=== PATIENT | male | born 1955 | race Caucasian/White ===

== ENCOUNTER 2022-09-25 06:12 | Emergency (ER) | payer MEDICARE, SELFPAY ==
[2022-09-25 06:17] VITALS: BP 141/94; PULSE 99; RESP 20; TEMP 36.4; O2SAT 91; BMI 36.0
--- NOTE | 2022-09-25 06:28 | ED.SOB ---
HPI - SOB/Dyspnea General Time Seen by Provider: 06:28 <Noe Dao MD - Last Filed: 09/25/22 07:04> Date Seen: 09/25/22 <Noe Dao MD - Last Filed: 09/25/22 07:04> Chief Complaint: Shortness of Breath/Dyspnea <Noe Dao MD - Last Filed: 09/25/22 07:04> Stated Complaint: difficulty breathing <Noe Dao MD - Last Filed: 09/25/22 07:04> Time Seen by Provider: 09/25/22 06:32 <Noe Dao MD - Last Filed: 09/25/22 07:04> Source: patient, family, RN notes reviewed and old records reviewed <Noe Dao MD - Last Filed: 09/25/22 07:04> Mode of arrival: ambulatory <Noe Dao MD - Last Filed: 09/25/22 07:04> Limitations: no limitations <Noe Dao MD - Last Filed: 09/25/22 07:04> History of Present Illness HPI Narrative: 67-year-old male with history of COPD and obesity as well as diabetes and hypertension presents today with shortness of breath. Patient notes progressive shortness of breath for about the last 3 weeks but worse the last week. He has COPD and is chronically on oxygen, 2 L at rest, 3 L at night with his BiPAP, and 4 L with activity but notes decreased exercise and activity tolerance recently. Some increased cough with occasional production of phlegm. Has some chills but no fever. No lower extremity swelling. No abdominal pain, nausea, vomiting. Does notice some pain in the lower ribs with breathing occasionally. <Noe Dao MD - Last Filed: 09/25/22 07:04> Related Data Home Medications: Home Medications Medication Instructions Recorded Confirmed amlodipine 10 mg tablet 10 mg PO DAILY 07/12/22 09/25/22 lisinopril 20 mg tablet 20 mg PO DAILY 07/12/22 09/25/22 potassium chloride 10 mEq 10 meq PO DAILY 07/12/22 09/25/22 tablet,extended release pravastatin 40 mg tablet 40 mg PO DAILY 07/12/22 09/25/22 aspirin 81 mg tablet,delayed 81 mg PO DAILY 09/25/22 09/25/22 release (Adult Aspirin Regimen) furosemide 40 mg tablet 40 mg PO DAILY 09/25/22 09/25/22 indomethacin 50 mg capsule 50 mg PO 3XD PRN gout pain 09/25/22 09/25/22 Previous Rx's Medication Instructions Recorded amoxicillin 500 mg-potassium 1 tab PO TID 7 days #21 tabs 09/25/22 clavulanate 125 mg tablet (Augmentin) azithromycin 250 mg tablet 250 mg PO DAILY 4 days #4 tabs 09/25/22 azithromycin 250 mg tablet 250 mg PO DAILY 6 days #6 tabs 09/25/22 prednisone 20 mg tablet 40 mg (2 x 20 mg) PO DAILY 4 days 09/25/22 #8 tabs <Noe Dao MD - Last Filed: 09/25/22 07:04> Allergies/Adverse Reactions: Allergies Allergy/AdvReac Type Severity Reaction Status Date / Time No Known Drug Allergies Allergy Verified 09/25/22 07:53 <Noe Dao MD - Last Filed: 09/25/22 07:04> [facility] Social History: Social History Smoking Status: Former smoker Do you use any of these nicotine containing products: None Second hand tobacco smoke exposure: No How often do you have a drink containing alcohol: 2-3 times a week How many standard drinks containing alcohol do you have on a typical day: 3 or 4 How often do you have six or more drinks on one occasion: Less than monthly AUDIT-C Alcohol total score: 5 Non-prescribed substance use: denies use service: No <Noe Dao MD - Last Filed: 09/25/22 07:04> Exam Narrative: Exam Narrative: General: Well-developed and well-nourished, no acute distress Head: Atraumatic and normocephalic Eyes: Pupils are equal reactive, extraocular motions intact, conjunctiva clear ENT: External nose and ears are normal, posterior pharynx without erythema or exudate Neck: No midline cervical tenderness, full spontaneous range of motion the neck, trachea midline, no adenopathy Heart: Regular rate and rhythm no murmurs or thrills Lungs: Diminished breath sounds throughout with bilateral crackles Abdomen: Soft, nontender, nondistended with active bowel sounds Musculoskeletal: No tenderness, deformity, or edema Neurologic: Awake, alert, and oriented x3, no gross focal neurologic deficits, cranial nerves intact as tested Psych: Mood and affect are appropriate Skin: No rashes <Noe Dao MD - Last Filed: 09/25/22 07:04> Const: Vital Signs, click to edit/add: Vital Signs - 24 hr 09/25/22 06:17 09/25/22 07:20 09/25/22 09:39 Temperature 97.5 F L 97.6 F Pulse Rate [Pulse Oximeter] 99 88 86 Respiratory Rate 20 20 22 Blood Pressure [Ri ght Upper Arm] 141/94 H 138/74 157/94 H Pulse Oximetry 91 93 92 Oxygen Delivery Me thod Nasal Cannula Room Air Nasal Cannula Oxygen Flow Rate 4 3 <Noe Dao MD - Last Filed: 09/25/22 07:04> Vital Signs, click to edit/add: Vital Signs - 24 hr 09/25/22 06:17 09/25/22 07:20 09/25/22 09:39 Temperature 97.5 F L 97.6 F Pulse Rate [Pulse Oximeter] 99 88 86 Respiratory Rate 20 20 22 Blood Pressure [Ri ght Upper Arm] 141/94 H 138/74 157/94 H Pulse Oximetry 91 93 92 Oxygen Delivery Me thod Nasal Cannula Room Air Nasal Cannula Oxygen Flow Rate 4 3 <Ronaldo Abraham MD - Last Filed: 09/25/22 15:59> Course Course Hospital Course: Patient seen examined, prior records are reviewed. Patient with history of CHF and COPD, oxygen dependent, who presents with increased shortness of breath. No orthopnea or lower extremity swelling but does have some crackles on lung exam. Suspect COPD exacerbation but cannot exclude overlying infection or heart failure. Labs ordered along with DuoNeb and Decadron. CT PE study will be performed given chest pain with breathing although this seems more musculoskeletal. Sign out to oncoming provider change of shift. <Noe Dao MD - Last Filed: 09/25/22 07:04> Reevaluation(s) Time of Reevaluation #1: 08:35 <Ronaldo Abraham MD - Last Filed: 09/25/22 15:59> Reevaluation #1: Patient was updated on his imaging results, CT scan showed: Impression: Severe cystic bronchiectasis seen throughout the bilateral hemithoraces with extensive emphysematous bullous changes. Dense airspace opacification of the right upper lobe consistent with developing pneumonia with parapneumonic effusion and reactive hilar and mediastinal lymph nodes. No evidence of pulmonary embolus. Patient to receive IV antibiotics ceftriaxone and azithromycin. <Ronaldo Abraham MD - Last Filed: 09/25/22 15:59> Time of Reevaluation #2: 09:50 <Ronaldo Abraham MD - Last Filed: 09/25/22 15:59> Reevaluation #2: Patient is feeling better after above care given, O2 stats have been stable, CBC showed leukocytosis, with a left shift, troponin was negative at 0.00, NT proBNP mildly elevated at 1150, COVID/fluA/B were negative, EKG showed no acute changes, metabolic panel within normal limits, discussed inpatient versus outpatient management, patient wishes to be discharged based on no changes with his vital sign and improvement of his symptoms. Plan to cover him with a beta-lactam and macrolide based on his comorbidities, Augmentin and azithromycin, short course of prednisone, follow-up appointment has been made early this week with his primary care provider, reasons to return given. <Ronaldo Abraham MD - Last Filed: 09/25/22 15:59> Vital Signs Vital signs: Initial Vital Signs Temperature 97.5 F L 09/25/22 06:17 Temperature Source Temporal Artery Scan 09/25/22 06:17 Pulse Rate 99 09/25/22 06:17 Respiratory Rate 20 09/25/22 06:17 Blood Pressure 141/94 H 09/25/22 06:17 Blood Pressure Mean 109 H 09/25/22 06:17 Blood Pressure Position Sitting 09/25/22 06:17 Pulse Oximetry 91 09/25/22 06:17 Oxygen Delivery Method Nasal Cannula 09/25/22 06:17 Oxygen Flow Rate 4 09/25/22 06:17 Vital Signs Temperature 97.5 F L 09/25/22 06:17 Pulse Rate 99 09/25/22 06:17 Respiratory Rate 20 09/25/22 06:17 Blood Pressure 141/94 H 09/25/22 06:17 Pulse Oximetry 91 09/25/22 06:17 Oxygen Delivery Method Nasal Cannula 09/25/22 06:17 Oxygen Flow Rate 4 09/25/22 06:17 Temperature 97.6 F 09/25/22 07:20 Pulse Rate 86 09/25/22 09:39 Respiratory Rate 22 09/25/22 09:39 Blood Pressure 157/94 H 09/25/22 09:39 Pulse Oximetry 92 09/25/22 09:39 Oxygen Delivery Method Nasal Cannula 09/25/22 09:39 Oxygen Flow Rate 3 09/25/22 09:39 <Noe Dao MD - Last Filed: 09/25/22 07:04> Initial Vital Signs Temperature 97.5 F L 09/25/22 06:17 Temperature Source Temporal Artery Scan 09/25/22 06:17 Pulse Rate 99 09/25/22 06:17 Respiratory Rate 20 09/25/22 06:17 Blood Pressure 141/94 H 09/25/22 06:17 Blood Pressure Mean 109 H 09/25/22 06:17 Blood Pressure Position Sitting 09/25/22 06:17 Pulse Oximetry 91 09/25/22 06:17 Oxygen Delivery Method Nasal Cannula 09/25/22 06:17 Oxygen Flow Rate 4 09/25/22 06:17 Vital Signs Temperature 97.5 F L 09/25/22 06:17 Pulse Rate 99 09/25/22 06:17 Respiratory Rate 20 09/25/22 06:17 Blood Pressure 141/94 H 09/25/22 06:17 Pulse Oximetry 91 09/25/22 06:17 Oxygen Delivery Method Nasal Cannula 09/25/22 06:17 Oxygen Flow Rate 4 09/25/22 06:17 Temperature 97.6 F 09/25/22 07:20 Pulse Rate 86 09/25/22 09:39 Respiratory Rate 22 09/25/22 09:39 Blood Pressure 157/94 H 09/25/22 09:39 Pulse Oximetry 92 09/25/22 09:39 Oxygen Delivery Method Nasal Cannula 09/25/22 09:39 Oxygen Flow Rate 3 09/25/22 09:39 <Ronaldo Abraham MD - Last Filed: 09/25/22 15:59> MDM - SOB/Dyspnea Lab Data Attestation: I reviewed the patient's lab results. <Noe Dao MD - Last Filed: 09/25/22 07:04> Labs: Lab Results 06/09/25/22 09/25/22 Range/Units 06:39 06:54 06:59 WBC 12.89 H (4.50-11.00) K/uL RBC 3.85 L (4.30-5.90) m/uL Hgb 13.6 (13.5-17.5) gm/dL Hct 40.7 (37.0-53.0) % MCV 106 H (80-100) fL MCH 35 H (26-34) pg MCHC 33 (32-36) gm/dL RDW Coeff of [place]loan 13.1 (11.5-15.5) % Plt Count 275 (140-440) K/uL Neut % (Auto) 78.4 H (42.0-72.0) % Lymph % (Auto) 8.2 L (20-44) % [place] % (Auto) 11.6 H (0.0-11.0) % Eos % (Auto) 1.2 (0.0-7.0) % Baso % (Auto) 0.1 (0.0-3.0) % Neut # (Auto) 10.10 H (1.7-7.0) K/uL Lymph # (Auto) 1.10 (0.90-2.90) K/uL [place] # (Auto) 1.50 H (0.00-0.90) K/UL Eos # (Auto) 0.20 (0.00-0.50) K/uL Baso # (Auto) 0.00 (0.00-0.30) K/uL Diff Slide Review Acceptable Review (Acceptable) Sodium 139 (135-149) mmol/L Potassium 4.3 (3.6-5.1) mmol/L Chloride 102 (96-114) mmol/L Carbon Dioxide 26 (20-32) mmol/L BUN 14 (7-30) mg/dL Creatinine 0.7 (0.5-1.5) mg/dL Estimated Creat Clear 66.10 Estimated GFR 100 ml/min Glucose 113 (60-115) mg/dL Calcium 9.5 (8.4-10.6) mg/dL Magnesium 1.9 (1.5-2.6) mg/dL NT-Pro-B Natriuret Pep 1150 pg/mL SARS-CoV-2 (PCR) Negative SARS-CoV-2 (Negative) Influenza Type A (PCR) Negative PCR FLU A (Negative) Influenza Type B (PCR) Negative PCR FLU B (Negative) POC Troponin I 0.00 L (0.01-0.04) ng/ml <Noe Dao MD - Last Filed: 09/25/22 07:04> Lab Results 09/25/22 09/25/22 09/25/22 Range/Units 06:39 06:54 06:59 WBC 12.89 H (4.50-11.00) K/uL RBC 3.85 L (4.30-5.90) m/uL Hgb 13.6 (13.5-17.5) gm/dL Hct 40.7 (37.0-53.0) % MCV 106 H (80-100) fL MCH 35 H (26-34) pg MCHC 33 (32-36) gm/dL RDW Coeff of [place] 13.1 (11.5-15.5) % Plt Count 275 (140-440) K/uL Neut % (Auto) 78.4 H (42.0-72.0) % Lymph % (Auto) 8.2 L (20-44) % [place] % (Auto) 11.6 H (0.0-11.0) % Eos % (Auto) 1.2 (0.0-7.0) % Baso % (Auto) 0.1 (0.0-3.0) % Neut # (Auto) 10.10 H (1.7-7.0) K/uL Lymph # (Auto) 1.10 (0.90-2.90) K/uL [place] # (Auto) 1.50 H (0.00-0.90) K/UL Eos # (Auto) 0.20 (0.00-0.50) K/uL Baso # (Auto) 0.00 (0.00-0.30) K/uL Diff Slide Review Acceptable Review (Acceptable) Sodium 139 (135-149) mmol/L Potassium 4.3 (3.6-5.1) mmol/L Chloride 102 (96-114) mmol/L Carbon Dioxide 26 (20-32) mmol/L BUN 14 (7-30) mg/dL Creatinine 0.7 (0.5-1.5) mg/dL Estimated Creat Clear 66.10 Estimated GFR 100 ml/min Glucose 113 (60-115) mg/dL Calcium 9.5 (8.4-10.6) mg/dL Magnesium 1.9 (1.5-2.6) mg/dL NT-Pro-B Natriuret Pep 1150 pg/mL SARS-CoV-2 (PCR) Negative SARS-CoV-2 (Negative) Influenza Type A (PCR) Negative PCR FLU A (Negative) Influenza Type B (PCR) Negative PCR FLU B (Negative) POC Troponin I 0.00 L (0.01-0.04) ng/ml <Ronaldo Abraham MD - Last Filed: 09/25/22 15:59> ECG Data Attestation: I personally reviewed and interpreted this ECG as follows: <Noe Dao MD - Last Filed: 09/25/22 07:04> ECG interpretation date: 09/25/22 <Noe Dao MD - Last Filed: 09/25/22 07:04> ECG interpretation time: 06:52 <Noe Dao MD - Last Filed: 09/25/22 07:04> Prior ECG tracings: not available for review <Noe Dao MD - Last Filed: 09/25/22 07:04> Interpretation: Performed at 6:21 a.m. demonstrates sinus rhythm rate 99, no acute ST elevations or depressions, normal intervals, normal axis, QTC 441, no prior for comparison <Noe Dao MD - Last Filed: 09/25/22 07:04> Discharge Plan Discharge Clinical Impression: Pneumonia <Noe Dao MD - Last Filed: 09/25/22 07:04> Patient Disposition: Home, Self-Care <Noe Dao MD - Last Filed: 09/25/22 07:04> Condition: Improved <Noe Dao MD - Last Filed: 09/25/22 07:04> Instructions: Pneumonia (ED) <Noe Dao MD - Last Filed: 09/25/22 07:04> Additional Instructions: To take Augmentin 875 mg twice daily over the next 7 days in addition to azithromycin for 5 days, prednisone 40 mg daily over the next 4 days, follow-up as scheduled, return if worsening symptoms. Follow up appointment is scheduled at the [facility] on 09/26 with a 1:40pm appointment time. Please arrive 10 minutes early to get checked in. If you have any questions or need to reschedule, please call [phone]. [facility] [address] [place] [address] <Noe Dao MD - Last Filed: 09/25/22 07:04> Activity Level: No Restrictions <Noe Dao MD - Last Filed: 09/25/22 07:04> No Restrictions <Ronaldo Abraham MD - Last Filed: 09/25/22 15:59> Prescriptions: New amoxicillin-pot clavulanate [Augmentin] 500-125 mg tablet 1 tab PO TID 7 Days Qty: 21 0RF prednisone 20 mg tablet 40 mg PO DAILY 4 Days Qty: 8 0RF azithromycin 250 mg tablet 250 mg PO DAILY 6 Days Qty: 6 0RF Rx Instructions: start on day 2 of therapy azithromycin 250 mg tablet 250 mg PO DAILY 4 Days Qty: 4 0RF Rx Instructions: start on day 2 of therapy No Action amlodipine 10 mg tablet 10 mg PO DAILY potassium chloride 10 mEq tablet extended release 10 meq PO DAILY lisinopril 20 mg tablet 20 mg PO DAILY pravastatin 40 mg tablet 40 mg PO DAILY furosemide 40 mg tablet 40 mg PO DAILY indomethacin 50 mg capsule 50 mg PO 3XD PRN (Reason: gout pain) aspirin [Adult Aspirin Regimen] 81 mg tablet,delayed release (DR/EC) 81 mg PO DAILY <Noe Dao MD - Last Filed: 09/25/22 07:04> Stand Alone Forms: [employer] Info Instructions <Noe Dao MD - Last Filed: 09/25/22 07:04>
--- NOTE | 2022-09-25 06:50 | CRLHL7_ITS ---
For Patients: As a result of the Cures Act, medical imaging exams and procedure reports are released immediately into your electronic medical record. You may view this report before your referring provider. If you have questions, please contact your health care provider. Indication: Cough, dyspnea and chest pain Technique: Volumetric multidetector CT images of the chest were obtained after the administration of IV contrast. 95 cc Isovue 370 low osmolar intravenous contrast Comparison: Two-view chest February 19, 2021 Findings: The thoracic inlet and thyroid gland are unremarkable. The thoracic aorta is nonaneurysmal. There is no central filling defect to suggest pulmonary embolism. There are enlarged mediastinal and hilar lymph nodes. There is severe central bronchial thickening with extensive cystic bronchiectasis of the predominantly lower lobes, lingula and middle lobes. There is severe paraseptal and centrilobular emphysematous changes with large bulla along the peripheral upper and lower lobes. There is a right basilar pleural effusion with dense airspace opacification of the right upper lobe consistent with developing multifocal infiltrates. There is no evidence of pulmonary mass or suspicious pulmonary nodule. The partially visualized upper abdominal viscera are within normal limits. The thoracic vertebral body heights are grossly maintained with straightening of the normal thoracic kyphosis. There is no significant spondylolisthesis or displaced fracture. Impression: Severe cystic bronchiectasis seen throughout the bilateral hemithoraces with extensive emphysematous bullous changes. Dense airspace opacification of the right upper lobe consistent with developing pneumonia with parapneumonic effusion and reactive hilar and mediastinal lymph nodes. No evidence of pulmonary embolus. Please note that all CT scans at this facility use dose modulation, iterative reconstruction, and/or weight-based dosing when appropriate to reduce radiation dose to as low as reasonably achievable. Dictated by Eze Trujillo MD @ 09/25/2022 8:25:47 AM (Electronically Signed)
[2022-09-25 07:03] LABS: Basophils Percent Auto 0.1 % (0.0-3.0); Eosinophils Percent Auto 1.2 % (0.0-7.0); Hematocrit 40.7 % (37.0-53.0); Hemoglobin* 13.6 gm/dL (13.5-17.5); Immature Granulocytes Pct Auto 0.5 %; Lymphocytes Percent Auto 8.2 % (20-44); Mean Corpuscular HGB Conc 33 gm/dL (32-36); Mean Corpuscular Hemoglobin 35 pg (26-34); Mean Corpuscular Volume 106 fL (80-100); Monocytes Percent Auto 11.6 % (0.0-11.0); Neutrophils Percent Auto 78.4 % (42.0-72.0); Platelet Count* 275 K/uL (140-440); RDW Coefficient of Variation % 13.1 % (11.5-15.5); Red Blood Count 3.85 m/uL (4.30-5.90); White Blood Count* 12.89 K/uL (4.50-11.00)
[2022-09-25] MEDS: dexAMETHasone 10 MG/ML inj IVP (07:14)
[2022-09-25 07:19] LABS: Chloride* 102 mmol/L (96-114); Potassium* 4.3 mmol/L (3.6-5.1); Sodium* 139 mmol/L (135-149)
[2022-09-25 07:20] VITALS: BP 138/74; PULSE 88; RESP 20; TEMP 36.4; O2SAT 93
[2022-09-25 07:22] LABS: Blood Urea Nitrogen* 14 mg/dL (7-30); Calcium* 9.5 mg/dL (8.4-10.6); Carbon Dioxide* 26 mmol/L (20-32); Creatinine* 0.7 mg/dL (0.5-1.5); Estimated Glomerular Filt Rate 100 ml/min; Glucose* 113 mg/dL (60-115)
[2022-09-25 07:23] LABS: Magnesium* 1.9 mg/dL (1.5-2.6)
[2022-09-25 07:32] LABS: NT Pro B Type NatriureticPept* 1150 pg/mL; Slide Review Reflex Yes
[2022-09-25 07:33] LABS: Slide Review Acceptable Review (Acceptable)
[2022-09-25 07:49] LABS: PCR FLU A Negative PCR FLU A (Negative); PCR FLU B Negative PCR FLU B (Negative); SARS PCR* Negative SARS-CoV-2 (Negative)
--- NOTE | 2022-09-25 08:01 | ED.NURSE ---
wants to take his own meds, this was ok per dr griffith.
[2022-09-25] MEDS: cefTRIAXone 1 GM in 0.9 % SODIUM CHLORIDE Mini-bag 100 ML IVPB (08:51)
[2022-09-25] MEDS: AZITHROMYCIN 500 MG in 0.9 % SODIUM CHLORIDE 250 ml 250 ML 255 MG IVPB (09:37)
[2022-09-25 09:39] VITALS: BP 157/94; PULSE 86; RESP 22; O2SAT 92
== END 2022-09-25 11:18 | disposition home or self-care (01) ==
PROVIDERS: Family Medicine; Emergency Provider Student in an Organized Health Care Education/Training Program; PCP Family Medicine
DX: J18.9 Pneumonia, unspecified organism (principal)
CPT/HCPCS: 36415; 71260; 80048; 83735; 83880; 84484; 85025; 87631; 93005; 96365; 96375; 99284; 99285; J0456; J0696; J1100; J7050; Q9967

== ENCOUNTER 2024-09-02 10:38 | Outpatient (CLI) | payer MEDICARE, SELFPAY | END 2024-09-02 10:39 | disposition home or self-care (01) | LOC: AMB 09-03 14:30 | PROVIDERS: PCP Family Medicine; Visit Provider Family Medicine | DX: R53.1 Weakness (principal) | CPT/HCPCS: A0425; A0427 ==

== ENCOUNTER 2024-09-17 08:46 | Emergency (ER) | payer MEDICARE, SELFPAY ==
--- OUTSIDE RECORDS SUMMARY | 2024-09-17 08:49 | XMS_ITS | Referral Summary ---
Author Organization [facility] Address [address] [place] [address] [place] [address] Care Team Providers Care Financial Sales Manager Name Role Phone Casimiro Mason MD Primary Care Provider Encounters Date Type Department Care Team Description 08/18/2024 Results Follow-Up [facility] [place] [address] [place] [address] Azul Fernandes MONITOR COMPLETE 7 TO 15 DAYS 07/08/2024 1:00 PM CDT Office Visit [facility] - [address] [place] [id number] Yvette Rios, CATALYST IMPREGNATOR, BACK TUFTER Cerebrovascular accident (CVA), unspecified mechanism (HCC) (Primary Dx); B12 deficiency; Stenosis of right carotid artery; Vitamin D deficiency from Last 3 Months Allergies No known active allergies Medications amLODIPine (NORVASC) 10 mg oral tablet Take 1 tablet (10 mg) by mouth Daily. 07/09/2023 Active clopidogrel (PLAVIX) 75 mg oral tablet 4 tablets orally on day 1, then 1 tablet daily. 07/06/2024 Active cyanocobalamin 1,000 mcg oral tablet Take 1 tablet (1,000 mcg) by mouth Daily. 10/23/2023 Active furosemide (LASIX) 40 mg oral tablet Take 1.5 tablets (60 mg) by mouth Daily. 11/01/2023 Active indomethacin (INDOCIN) 50 mg oral capsule Take 1 capsule (50 mg) by mouth. 02/06/2024 Active lisinopriL (PRINIVIL) 20 mg oral tablet Take 0.5 tablets (10 mg) by mouth Daily. 07/06/2024 Active potassium chloride (K-DUR) 20 mEq oral extended release tablet Take 0.5 tablets (10 mEq) by mouth Daily. 11/27/2023 Active pravastatin (PRAVACHOL) 40 mg oral tablet Take 1 tablet (40 mg) by mouth Daily. 07/09/2023 Active aspirin 81 mg oral enteric coated tablet Take 1 tablet (81 mg) by mouth once daily. Active cholecalciferol , vitamin D3, 1,250 mcg (50,000 unit) oral TabIndications: Vitamin D deficiency Take 50,000 Units by mouth every 7 (seven) days. 9 tablet 07/13/2024 Active Active Problems Problem Noted Date Diagnosed Date Subclinical hypothyroidism 11/01/2023 B12 deficiency 10/23/2023 Oxygen dependent 07/09/2023 Chronic respiratory failure with hypoxia 023 Cor pulmonale 02/25/2012 COPD (chronic obstructive pulmonary disease) 05/2009 HTN (hypertension) 05/03/2009 Hyperlipidemia 05/03/2009 Immunizations Immunization Administration Dates Next Due Influenza Adjuvanted (Fluad Quadrivalent PF) 01/19/2023,03/15/2021 Influenza Adjuvanted (Fluad Trivalent PF) 01/03/2024 Influenza High Dose (Fluzone Quadrivalent PF) 12/18/2021,11/26/2019 Influenza split virus (Fluzo ne Quadrivalent PF) 01/16/2019,01/01/2018,01/02/2017,2015,01/21/2015,01/18/2014 Influenza split virus (Fluzo ne Trivalent PF) 02/26/2011 Influenza split virus trivalent 02/20/2012,01/13 Moderna 12+Yrs mRNA Spikevax COVID Vaccine Seasonal 07/09/2023 Pfizer 12+ Yrs Monovalent CO VID Vaccine (purple cap) 03/15/2021 Pneumococcal PCV13 11/26/2019 Pneumococcal PCV20 07/09/2023 Pneumococcal PPSV23 02/20/2012,08/10/2007 SPIKEVAX (Moderna) 12+ Yrs M onovalent COVID Vaccine (credit representative) 07/06/2020,06/08/2020 Td 08/09/2004 Tdap 01/18/2014,05/02/2002 Zoster Live 01/02/2017 Social History Tobacco Use Types Packs/Day Years Used Date Smoking Tobacco: Former Cigarettes Smokeless Tobacco: Never Tobacco Cessation:Counseling Given: Not Answered Alcohol Use Standard Drinks/Week Comments Not Currently 0 (1 standard drink = 0.6 oz pur e alcohol) Sex and Gender Information Value Date Recorded Sex Assigned at Not on file Legal Sex Male 9:21 AM CDT Gender Identity Not on file Sexual Orientation Not on file Last Filed Vital Signs Vital Sign Reading Time Taken Comments Blood Pressure 110/60 07/08/2024 1:25 PM CDT Pulse - - Temperature - - Respiratory Rate - - Oxygen Saturation - - Inhaled Oxygen Concentration - - Weight 107 kg (236 lb) 07/08/2024 1:25 PM CDT Height 172.7 cm (5' 8) 07/08/2024 1:25 PM CDT Body Mass Index 35.88 07/08/2024 1:25 PM CDT Plan of Treatment Not on file Procedures Procedure Name Priority Date/Time Associated Diagnosis Comments ZIO MONITOR COMPLETE 7 TO 15 DAYS Routine 08/17/2024 11:42 AM CDT Cerebrovascular accident (CVA), unspecified mechanism (HCC) HOMOCYST(E)INE ([facility]) Routine 07/08/2024 12:49 PM CDT B12 deficiency Stenosis of right carotid artery Cerebrovascular accident (CVA), unspecified mechanism (HCC) METHYLMALONIC ACID, SERUM ([facility]) Routine 07/08/2024 12:49 PM CDT B12 deficiency Stenosis of right carotid artery Cerebrovascular accident (CVA), unspecified mechanism (HCC) VITAMIN D, 25-HYDROXY ([facility]) Routine 07/08/2024 12:49 PM CDT Stenosis of right carotid artery Cerebrovascular accident (CVA), unspecified mechanism (HCC) HEMOGLOBIN A1C ([facility]) Routine 07/08/2024 12:49 PM CDT Stenosis of right carotid artery Cerebrovascular accident (CVA), unspecified mechanism (HCC) from Last 3 Months Results * ZIO MONITOR COMPLETE 7 TO 15 DAYS (08/17/2024 11:42 AM CDT) EKG [facility] Comment: NM Test Date: 2024-08-17 Pat Name: MITCHEL BERNABE Department: [facility] Room: Gender: M Client Associate: : [id number] Requested By: YVETTE RIOS MD Order Number: [id number] Reading MD: Danial Wu MD Interpretive Statements ZIO DOS: 07/27/24 TO 08/10/24 DURATION: 13 DAYS 22 HOURS PCP: CASIMIRO MASON MD ORDERING: YVETTE RIOS NP PRIMARY TITLE I PARAPROFESSIONAL: NONE INDICATION: CVA RESULTS: Patient had a min HR of 49 bpm, max HR of 169 bpm, and avg HR of 71 bpm. Predominant underlying rhythm was Sinus Rhythm. 3 Supraventricular Tachycardia runs occurred, the run with the fastest interval lasting 6 beats with a max rate of 169 bpm, the longest lasting 10 beats with an avg rate of 111 bpm. Isolated SVEs (Supra-Ventricular Ectopics) were rare (<1.0%), SVE Couplets were rare (<1.0%), and SVE Triplets were rare (<1.0%). Isolated VEs (Ventricular Ectopics) were rare (<1.0%), and no VE Couplets or VE Triplets were present. There were no reported patient events. CONCLUSIONS: 1. Basic rhythm is normal sinus rhythm. 2. No significant cardiac arrhythmias were seen. [facility] Electronically Signed On 08-18-2024 16:35:47 CDT by Danial Wu MD 08/17/2024 11:4 2 AM CDT us Yvette Rios APRN, CNP CARDIO ORDERABLE Final Result [facility] [address] [place] [address] * METHYLMALONIC ACID, SERUM ([facility]) (07/08/2024 12:49 PM CDT) Methylmalonic Acid ([facility]) 300 0 - 378 nmol/L [facility] 2 Blood 07/08/2024 12:4 9 PM CDT 07/07/2024 11:00 PM CDT Narrative [facility] 2 - 07/13/2024 8:08 AM CDT Test(s) 824714-[id number] Acid, Serum was developed and its performance characteristics determined by [facility]. It has not been cleared or approved by the Food and Drug Administration. Performed at: - [address] [id number] [employer] Builder: Robyn Groves MD, Phone: [phone] Yvette Rios APRN, BACK TUFTER [facility] ORDERABLES Rahel davis Result Performing Organization Address [facility] Co de Phone Number [facility] 2 * (ABNORMAL) HOMOCYST(E)INE ([facility]) (07/08/2024 12:49 PM CDT) Homocyst(e)ine ([facility]) 27.5(H) 0.0 - 17.2 umol/L [facility] 1 Blood 07/08/2024 12:4 9 PM CDT 07/07/2024 11:00 PM CDT Narrative [facility] 1 - 07/13/2024 8:08 AM CDT Performed at: - [facility] [id number] [employer]: Avinash Haley MD, Phone: [phone] Yvette Rios APRN, BACK TUFTER [facility] ORDERABLES Rahel l Result Performing Organization Address City/[facility]/ZIP Co de Phone Number [facility] 1 * (ABNORMAL) VITAMIN D, 25-HYDROXY ([facility]) (07/08/2024 12:49 PM CDT) Vitamin D,25 Hydroxy ([facility]) 8.4(L) 30.0 - 100.0 ng/mL [facility] 1 Comment: Vitamin D deficiency has been defined by the [place] of [employer] and an Endocrine Society practice guideline as a level of serum 25-OH vitamin D less than 20 ng/mL (1,2). The Endocrine Society went on to further define vitamin D insufficiency as a level between 21 and 29 ng/mL (2). 1. IOM ([place] of [employer]). 2010. Dietary reference intakes for calcium and D. [place]: The National Academies Press. 2. Delia MF, Corwin GONZALES, Rain BENITES, et al. Evaluation, treatment, and prevention of vitamin D deficiency: an Endocrine Society clinical practice guideline. JCEM. 2010; 96(7):1911-30. Blood 07/08/2024 12:4 9 PM CDT 07/07/2024 11:00 PM CDT Narrative [facility] - 07/13/2024 8:08 AM CDT Performed at: - [facility] [id number] [employer]: Avinash Haley MD, Phone: [phone] Yvette Rios APRN, KUMAR [facility] ORDERABLES Rahel l Result [facility] 1 * (ABNORMAL) HEMOGLOBIN A1C ([facility]) (07/08/2024 12:49 PM CDT) HgbA1c ([facility]) 5.9(H) 4.8 - 5.6 % [facility] 1 Comment: Prediabetes: 5.7 - 6.4 Diabetes: >6.4 Glycemic control for adults with diabetes: <7.0 Blood 07/08/2024 12:4 9 PM CDT 07/07/2024 11:00 PM CDT Narrative [facility] 1 - 07/13/2024 8:08 AM CDT Performed at: [facility] [id number] [employer]: Avinash Haley MD, Phone: [phone] us Yvettekatiana Rios CATALYST IMPREGNATOR, BACK TUFTER [facility] ORDERABLES Rahel davis Result [facility] 1 from Last 3 Months Insurance [facility] MEDICARE ADVANTAGE * Guarantor: MITCHEL BERNABE Account Type Relation to Patient Date of Phone Billing Address Personal/Family Care Teams Financial Sales Manager Relationship Specialty Start Date End Date Casimiro Mason MD [address] [place] [address] PCP - General Family Medicine 07/08/24
--- OUTSIDE RECORDS SUMMARY | 2024-09-17 08:49 | XMS_ITS | Clinical Summary ---
Author Organization [employer] [facility] Address [address] [place] [id number] Care Team Providers Care [employer] Butcher Name Role Phone Cinthia Mason MD Primary Care Provider [facility] [place] Unavailable Allergies No known active allergies Medications cyanocobalamin (VITAMIN B12) 1,000 mcg tabletIndications: B12 deficiency Take 1 Tablet (1,000 mcg) by mouth once daily. 90 Tablet 3 024 Active furosemide (LASIX) 40 mg tabletIndications: Hypertension, unspecified type Take 1.5 Tablets (60 mg) by mouth once daily in the morning. 135 Tablet 3 024 Active potassium chloride (KLOR-CON M20) 20 mEq extended-release tablet (part/cryst)Indica tions:Hypertension , unspecified type Take 0.5 Tablets (10 mEq) by mouth once daily. 024 Active BIPAPIndications:C hronic respiratory failure with hypoxia (HC),SEVERO (obstructive sleep apnea) BIPAP machine for home use at pressure: AVAPS : EPAP 6.0, Min IPAP 9 cm, Max IPAP 25.0, Volume 540 mL, AVAPS Rate 1.0, Timed Insp recommended with on3 liter bled in, full face mask x1/3month with a full face cushion x1/mo; Length of Need: 99 months; Frequency of use: Daily 1 Each 9 025 Active oxygen-air delivery systemsIndications :Chronic respiratory failure with hypoxia (HC) Oxygen for home use. Liters per minute: 2 L at rest, 3L with activity per nasal cannula and 3L bled into AVAPS. Frequency of use: Continuous with portability. Length of need: 99 Months. 1 Each 025 Active lisinopriL 20 mg tabletIndications: Hypertension, unspecified type Take 0.5 Tablets (10 mg) by mouth once daily. 025 Active amLODIPine 10 mg tabletIndications: Benign essential HTN TAKE 1 TABLET BY MOUTH ONCE DAILY 100 Tablet 2 025 Active rosuvastatin 20 mg tabletIndications: Coronary artery disease involving nightmute coronary artery of nightmute heart, unspecified whether angina present,HTN (hypertension),Obe sity, Class II, BMI 35-39.9,PAD (peripheral artery disease),Dyslipide roro Take 1 Tablet (20 mg) by mouth at bedtime. 90 Tablet 3 025 Active clopidogreL 75 mg tabletIndications: Cerebrovascular accident (CVA), unspecified mechanism (HC) Take 1 Tablet (75 mg) by mouth once daily in the morning. 90 Tablet 1 025 Active indomethacin 50 mg capsule Take 50 mg by mouth 3 times daily if needed for Gout Pain. Use for 3-5 days PRN gout Active apixaban 5 mg tabletIndications: prevent thromboembolism in chronic atrial fibrillation Take 1 Tablet (5 mg) by mouth two times daily. 60 Tablet 2 09/11/19 25 1:31 PM CDT 025 Active metoprolol succinate 25 mg Sustained-Release tabletIndications: Atrial fibrillation, unspecified type (HC) Take 1 Tablet (25 mg) by mouth two times daily. 180 Tablet 1 09/11/19 25 1:31 PM CDT 025 Active oxygen-air delivery systemsIndications :Multifocal pneumonia,Chronic respiratory failure with hypoxia (HC) Oxygen for home use with bubbler/humidi ty as needed for patient comfort. Liters per minute: 4 per nasal cannula at rest and nocturnal, 6L oxygen with activity. Frequency of use: Continuous with portability. Length of need: 12 Months. 1 Each 025 Active albuterol-ipratrop ium (2.5-0.5 mg) in 3 mL NEBULIZATION solutionIndication s:Chronic respiratory failure with hypoxia (HC) Inhale 3 mL via a nebulizer every 6 hours if needed for Shortness Of Breath or Wheezing. 120 mL 09/13/19 25 12:57 PM CDT 025 Active predniSONE 10 mg tabletIndications: Multifocal pneumonia,Sepsis, due to unspecified organism, unspecified whether acute organ dysfunction present (HC),Chronic respiratory failure with hypoxia (HC),Obstructive emphysema (HC) TAKE WITH MEALS. Take 4 tabs (40 mg) by mouth once daily for 2 days, THEN 3 Tabs (30 mg) once daily for 2 days, THEN 2 Tablets (20 mg) once daily for 2 days, THEN 1 Tablet (10 mg) once daily for 2 days. 20 Tablet 09/13/19 25 12:57 PM CDT 025 2024 Active NebulizerIndicatio ns:Multifocal pneumonia,Chronic respiratory failure with hypoxia (HC),Obstructive emphysema (HC) Nebulizer, disposable neb kit x 4, reuseable neb kit x 1, mask x 1, filters x 1. Frequency of use: daily; Medication: duoneb Length of need: 12 months 1 Each 025 Active fluticasone wxj-vqeccjrrpyci-c ilanterol 100-62.5-25 mcg inhalerIndications :Chronic respiratory failure with hypoxia (HC),Obstructive emphysema (HC) Inhale 1 Puff by mouth once daily. 180 Each 3 025 Active fluticasone avl-zgikkoydkvav-e ilanterol 100-62.5-25 mcg inhalerIndications :Chronic respiratory failure with hypoxia (HC) Inhale 1 Puff by mouth once daily. Rinse mouth after use 90 Each 3 025 Active aspirin enteric coated 81 mg tablet Take 1 tablet by mouth once daily with a meal. 0 010 2024 Discontinued(* IP Discontinued) indomethacin (INDOCIN) 50 mg capsuleIndications :Gout, unspecified cause, unspecified chronicity, unspecified site Take 1 Capsule (50 mg) by mouth three times daily with meals. For 3 to 5 days as needed for gout. 30 Capsule 1 024 2024 Discontinued(P harmacist change per medication history (E-cancel not sent)) clopidogreL 75 mg tabletIndications: Cerebrovascular accident (CVA), unspecified mechanism (HC) 4 tablets orally on day 1, then 1 tablet daily. 60 Tablet 025 2024 Discontinued(R eorder (E-cancel not sent)) clopidogreL 75 mg tabletIndications: Cerebrovascular accident (CVA), unspecified mechanism (HC) Take 1 Tablet (75 mg) by mouth once daily in the morning. 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 2024 Discontinued(* Patient states no longer taking) oxygen-air delivery systemsIndications :Multifocal pneumonia,Chronic respiratory failure with hypoxia (HC) Oxygen for home use with bubbler/humidi ty as needed for patient comfort. Liters per minute: 4 per nasal cannula at rest and nocturnal, 6L oxygen with activity. Frequency of use: Continuous with portability. Length of need: 12 Months. 1 Each 025 2024 Discontinued fluticasone qtm-itzafbrixeob-i ilanterol 100-62.5-25 mcg inhalerIndications :Chronic respiratory failure with hypoxia (HC),Obstructive emphysema (HC) Inhale 1 Puff by mouth once daily. 60 Each 09/13/19 12:57 PM CDT 025 2024 Discontinued(R eorder (E-cancel not sent)) guaiFENesin 600 mg Extended-Release tabletIndications: Multifocal pneumonia Take 1 Tablet (600 mg) by mouth two times daily for 7 days. 14 Tablet 09/13/19 12:57 PM CDT 025 2024 Discontinued(* Patient states no longer taking) Active Problems Problem Noted Date Diagnosed Date Stenosis of carotid artery 09/16/2024 Type 2 diabetes mellitus wit hout complication, without long-term current use of insulin 09/16/[address] angiography 09/08/2024 Multifocal pneumonia 09/02/2024 Severe sepsis 09/02/2024 Paroxysmal A-fib 09/02/2024 Atrial fibrillation with RVR 09/02/2024 Subclinical hypothyroidism 11/01/2023 B12 deficiency 10/23/2023 Obstructive emphysema 07/09/2023 Oxygen dependent 07/09/2023 Adult bronchiectasis 07/09/2023 Pulmonary hypertension, diagnosis 2011 Chronic respiratory failure with hypoxia 023 Gout; left first MTP joint July 2022. 08/24/2022 Obesity, Class II, BMI 35-39.9 01/11/2022 Hypoxia 01/11/2022 Obstructive sleep apnea 03/19/2012 Cor pulmonale 02/25/2012 HTN (hypertension) 05/03/2009 COPD, Dx 2007, followed by Pulm. 05/03/2009 Unspecified gastritis and ga stroduodenitis without mention of hemorrhage 05/03/2009 Other and unspecified hyperlipidemia 05/03/2009 Resolved Problems Problem Noted Date Diagnosed Date Resolved Date Pure hypercholesterolemia 03/30/2011 Benign neoplasm of colon 09/09/2009 Overview (02/08/2017): Colonoscopy 08/2009 polyp repeat in 5 years Colonoscopy 01/2017 polyp repeat in 5 years Encounters Date Type Department Care Team Description 09/17/2024 Telephone [facility] [address] [place] [address] Cinthia Mason MD Results 09/16/2024 2:30 PM CDT Office Visit [facility] [address] [place] [address] Cinthia Mason MD Hospital F/U (Pneumonia, sepsis, a-fib w/ RVR) 09/16/2024 Telephone [facility] [address] [place] [address] Dayv Lara MD Follow Up 09/15/2024 Travel 09/15/2024 Telephone [facility] [address] [place] [address] Cinthia Mason MD Health Maintenance Update 09/14/2024 Home Care Visit [facility] [address] [place] [phone] Barb Bone RN NOT TAKEN UNDER HOME CARE 09/14/2024 Telephone [facility] [address] [facility] [address] Cinthia Mason MD Follow Up 09/14/2024 Patient Outreach [facility] [address] [place] [address] Antonina Mishra, RN Primary RN Care Management; Hospital F/U (LACE 75) 09/13/2024 Transcribe Orders [facility] [address] [place] [address] Heavenly Hernandez MD 09/02/2024 12:03 PM CDT - 09/12/2024 1:50 PM CDT Hospital Encounter [facility] [address] [place] [address] Sarah Cohn, [facility], [facility] Hospitalists Of Hand, MD Tiesha eTrrazas, MD Neeta Morgan, Dyllan Paul, DO Hernandez, Heavenly Lovell MD Multifocal pneumonia (Primary Dx); Sepsis, due to unspecified organism, unspecified whether acute organ dysfunction present (HC); Atrial fibrillation, unspecified type (HC); Cardiovascular symptoms; Chronic respiratory failure with hypoxia (HC); Obstructive emphysema (HC); Atrial fibrillation with RVR (HC) Discharge Disposition: [facility] 09/02/2024 Travel 08/19/2024 Hospital Encounter [facility] [address] [place] [address] Davy Lara MD 08/14/2024 2:00 PM CDT Office Visit [facility] [address] [place] [address] [address] [place] [address] David Nugent MD Follow Up (PER DR ANNALISA Keys - FOR CAD. /CTA- 08/14/2024.) 08/14/2024 Orders Only [facility] [address] [place] [address] Cinthia Masno MD 1 scan: (1-Ord) NFLD-EKG-08/11/24 08/14/2024 Travel 08/13/2024 10:00 AM CDT Ancillary Procedure [facility] [address] [facility] [address] [place] [address] 08/13/2024 9:20 AM CDT Orders Only [facility] [address] [facility] [address] [place] [address] Lab 08/13/2024 Telephone [facility] [address] [place] [address] Cinthia Mason MD Results 08/13/2024 Telephone [facility] [address] [place] [address] Davy Lara MD Results 08/12/2024 Travel 08/11/2024 10:05 AM CDT Office Visit [facility] [address] [place] [address] Cinthia Mason MD Preoperative Exam (DOS: 08/19/2024, RIGHT CAROTID ENDARTERECTOMY W/EEG, Davy Lara MD, ANW) 08/11/2024 Orders Only [facility] [address] [place] [address] Rk Boudreaux MD <No scans attached> 08/11/2024 Travel 08/05/2024 Telephone [facility] [address], [place] [address] Davy Lara MD Prior Authorization 08/04/2024 7:30 AM CDT Ancillary Procedure [facility] [address] [place] [address] 08/04/2024 Telephone [facility] [address] [place] [address] Davy Lara MD Surgery Scheduled 08/03/2024 3:00 PM CDT Office Visit [facility] [address] [place] [address] Davy Lara MD Consult (Carotid artery 4/7/25 US ) 08/03/2024 Travel 07/27/2024 1:00 PM CDT Ancillary Procedure [facility] [address] [facility] [phone] 07/27/2024 Travel 07/25/2024 Refill [facility] [address] [place] [address] Cinthia Mason MD Refill Request (Amlodipine, Pravastatin) 07/08/2024 Telephone [facility] [address] [place] [address] Cinthia Mason MD Referral (NEUROLOGY ) 07/07/2024 11:15 AM CDT Office Visit [address] [place] [address] 07/07/2024 Orders Only [facility] [address] [facility] [place] [address] Cinthia Mason MD <No scans attached> 07/06/2024 11:45 AM CDT Ancillary Procedure [facility] [address] [place] [address] 07/06/2024 10:30 AM CDT Ancillary Procedure [facility] [address] [facility] [address] 07/06/2024 Telephone [facility] [address] [place] [address] Cinthia Mason MD Results 07/06/2024 Travel 07/03/2024 1:00 PM CDT Office Visit [facility] [address] [place] [address] Dmitri Hernandez MD Follow Up (Lung and sleep follow up) 07/03/2024 Orders Only [facility] [address] [place] [address] Cinthia Mason MD <No scans attached> 07/03/2024 Travel 06/26/2024 Telephone [facility] [address] [place] [phone] Dmitri Hernandez MD Appointment 06/25/2024 Orders Only [facility] [address] [place] [address] Cinthia Mason MD <No scans attached> 06/24/2024 2:55 PM CDT Office Visit [facility] [address] [place] [address] Cinthia Mason MD Derm Problem (Itchy torso, started a couple weeks ago, no visible rash); Lab (Order tests from [facility] eye provider/Check kidneys - upper torso itch/Check liver function - lines on finger nails); Arm Pain/problem (Left arm shaking - loses control, started about a month ago) 06/24/2024 Travel from Last 3 Months Immunizations Immunization Administration Dates Next Due Amb Influenza, Inact (High-d ose Quadrivalent) (Flu Clinic Only) 11/26/2019 COVID-19 VACCINE SPIKEVAX (M ODERNA 50MCG/0.5ML) 12YO+ PFS 07/09/2023 COVID-19 vaccine (Moderna 100mcg/0.5mL) PF, MDV 07/06/2020,06/08/2020 COVID-19 vaccine (Pfizer-Bio NTech 30mcg/0.3mL) PF, MDV 03/15/2021 Influenza Virus, Unspecified 01/16/2019 Influenza, High-dose Quadriv alent Inactivated 12/18/2021 Influenza, IIV3 (Age 6-35 mos) 02/26/2011 Influenza, IIV3 (Age >=3 years) 02/20/2012,02/26,01/13/2010 Influenza, IIV4 01/16/2019, 8,01/02/2017,2015,01/21/2015,01/18/2014 Influenza, Inactivated AIIV4 (Age 65+ Years) Preserv Free 01/19/2023,12/18/2021,03/15/2021 Influenza, Inactivated IIV3 (Age 65+ Years) Preserv Free 01/03/2024 Pneumococcal Conj 20-valent (Prevnar 20) 07/09/2023 Pneumococcal Poly,23-Valent (Pneumovax) 02/20/2012,08/10/2007 Pneumococcal conj 13-Valent (Prevnar 13) 11/26/2019 Td, Preservative Free (age > = 7 Years) 08/09/2004 Tdap 01/18/2014,05/02/2002 Zoster (Zostavax-ZVL, live) 01/02/2017 Family History Medical History Relation Name Comments Cancer-prostate Brother late 40's Heart Disease Paternal Uncle Good Health Sister Anesthesia Problem No Family History Cancer-colon No Family History Diabetes No Family History Relation Name Status Comments Brother Father (Age 42) CAD Mother (Age 40) CVA Paternal Uncle Sister Social History Tobacco Use Types Packs/Day Years Used Date Smoking Tobacco: Former Cigarettes 1 30 1 04/19/1981 - 02/18/2012 Smokeless Tobacco: Never Tobacco Cessation:Counseling Given: No Alcohol Use Standard Drinks/Week Comments Not Currently 0 (1 standard drink = 0.6 oz pur e alcohol) PHQ-2 Answer Date Recorded PHQ-2 TOTAL SCORE 0 07/09/2023 Social Connections Answer Date Recorded Do you often feel lonely or isolated from those around you? 0 09/02/2024 Financial Resource Strain Answer Date R ecorded Difficulty of Paying Living Expenses 3 08/11/2024 Difficulty of Paying Living Expenses Not on file 08/11/2024 Food Insecurity Answer Date Recorded Do you worry your food will run out before you are able to buy more? 1 09/02/2024 Transportation Needs Answer Date Record ed Does lack of transportation keep you from medica l appointments? 1 09/02/2024 Does lack of transportation keep you from work, meetings or getting things that you need? 1 09/02/2024 Housing Stability Answer Date Recorded What is your housing situation today? 1 09/02/2024 Interpersonal Safety Answer Date Record ed Are you being hit, kicked, p ushed or yelled at (see row info)? No 09/02/2024 Interpersonal Safety Abuse 12 - 18 Not on file 09/02/2024 Interpersonal Safety Ambulatory Vulnerability No t on file 09/02/2024 Utilities Answer Date Recorded Do you have trouble paying f or utilities (for example, heat, electricity, water, phone)? 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 Gender Identity Not on file Sexual Orientation Not on file Obstetrics History Last Filed Vital Signs Vital Sign Reading Time Taken Comments Blood Pressure 100/65 09/16/2024 2:28 PM CDT Pulse 66 09/16/2024 2:28 PM CDT Temperature 36.5 C (97.7 F) 09/12/2024 8:31 AM CDT Respiratory Rate 16 09/12/2024 11:55 AM CDT Oxygen Saturation 94% 09/16/2024 2:28 PM CDT Inhaled Oxygen Concentration - - Weight 100 kg (220 lb 8 oz) 09/16/2024 2:28 PM C DT Height 172.7 cm (5' 8) 09/02/2024 12:14 PM CDT Body Mass Index 33.53 09/02/2024 12:14 PM CDT Plan of Treatment Upcoming Encounters Date Type Department Care Team (Late st Contact Info) Description 09/18/2024 7:30 AM CDT Office Visit [facility] [address] [place] [address] Bertrand Bergman, Nuria [address] [place] [phone] 09/18/2024 2:30 PM CDT Nurse/Clinic Staff Only [facility] [address] [place] [address] [facility] [address] [place] [phone] 10/27/2024 1:30 PM CDT Office Visit [facility] [address] [facility] [address] [place], [place] [phone] Mauricio, SHERRIE Albert [address] [facility] [address] [place], [place] [phone] Health Maintenance Due Date Last Done Comments RSV vaccine for adults or (1 - Risk 60-74 years 1-dose series) 2014 Zoster (shingles) series for age 50+ (2 of 3) 02/27/2017 01/02/2017 Colonoscopy through age 75 02/04/202202/04, 02/04/2017, 02/04/2017, Additional history exists Tetanus booster 01/19/2024 01/18/2014, 07/30, 05/02/2002, Additional history exists COVID-19 vaccine series ( season) 2024 01/03/2024, 07/09/2023, 01/19/2023, Additional history exists Depression screening for age 12+ 07/08/2024 07/09/2023, 01/11/2022, 02/11/2020, Additional history exists Medicare Wellness for age 65+ 07/09/2024 07/09/2023, 01/11/2022, 02/11/2020, Additional history exists Fecal testing non-DNA (FIT,FOBT,iFOBT) for age 45-75 07/23/2024 07/24/2023 BMI (ht and wt on same day) for age 18+ 08/14/2025 08/14/2024, 08/11/2024, 07/09/2023, Additional history exists Low Dose CT (for lung CA) age 50-80 09/02/2025 09/02/2024, 07/17/2023, 04/23/2017, Additional history exists Lipids for age 45-75 06/24/2029 06/24/2024, 07/09/2023, 01/11/2022, Additional history exists Tdap Completed 01/18/2014, 05/02/2002 Hepatitis C screening for age 18-79 Completed 11/08/2016 AAA screening age 65-74 Completed 02/15/2020 Pneumococcal series for age 50+ Completed 07/09/2023, 11/26/2019, 02/20/2012, Additional history exists Influenza Vaccine Completed 01/03/2024, , 12/18/2021, Additional history exists Hepatitis B series for 19+ Aged Out N o longer eligible based on patient's age to complete this topic Procedures Procedure Name Priority Date/Time Associated Diagnosis Comments CBC WITH AUTO DIFFERENTIAL Routine 09/16/2024 3:09 PM CDT Multifocal pneumonia BASIC METABOLIC PANEL Routine 09/16/2024 3:09 PM CDT Benign essential HTN POTASSIUM Early AM 09/12/2024 6:13 AM CDT HEMOGLOBIN Early AM 09/12/2024 6:13 AM CDT PLATELET COUNT Early AM 09/12/2024 6:13 AM CDT SCAN-CARDIAC STRIP 09/12/2024 1: 06 AM CDT BASIC METABOLIC PANEL Early AM 09/11/2024 6:17 AM CDT HEMOGLOBIN Early AM 09/11/2024 6:17 AM CDT PLATELET COUNT Early AM 09/11/2024 6:17 AM CDT SCAN-CARDIAC STRIP 09/11/2024 12:28 AM CDT XR CHEST 1 VIEW PORTABLE Routine 09/10/2024 9:59 AM CDT BASIC METABOLIC PANEL Early AM 09/10/2024 6:45 AM CDT HEMOGLOBIN Early AM 09/10/2024 6:45 AM CDT PLATELET COUNT Early AM 09/10/2024 6:45 AM CDT SCAN-CARDIAC STRIP 09/10/2024 12:45 AM CDT SCAN-CARDIAC STRIP 09/09/2024 6: 44 AM CDT SCAN-CARDIAC STRIP 09/09/2024 6: 39 AM CDT CO2,TOTAL Early AM 09/09/2024 6:12 AM CDT CREATININE Early AM 09/09/2024 6:12 AM CDT POTASSIUM Early AM 09/09/2024 6:12 AM CDT SODIUM Early AM 09/09/2024 6:12 AM CDT APTT Early AM 09/09/2024 6:12 AM CDT HEMOGLOBIN Early AM 09/09/2024 6:12 AM CDT PLATELET COUNT Early AM 09/09/2024 6:12 AM CDT SCAN-CARDIAC STRIP 09/09/2024 2: 38 AM CDT HCHG ACTIVATED CLOTTING TM CV Timed 09/08/2024 4:58 PM CDT CVL CORONARY ANGIOGRAM POSS PCI Routine 09/08/2024 4:47 PM CDT Cardiovascular symptoms URIC ACID KIRK 09/08/2024 6:41 AM CDT MAGNESIUM Early AM 09/08/2024 6:41 AM CDT C-REACTIVE PROTEIN Early AM 09/08/2024 6: 41 AM CDT CO2,TOTAL Early AM 09/08/2024 6:41 AM CDT CREATININE Early AM 09/08/2024 6:41 AM CDT POTASSIUM Early AM 09/08/2024 6:41 AM CDT SODIUM Early AM 09/08/2024 6:41 AM CDT APTT Early AM 09/08/2024 6:41 AM CDT HEMOGLOBIN Early AM 09/08/2024 6:41 AM CDT PLATELET COUNT Early AM 09/08/2024 6:41 AM CDT SCAN-CARDIAC STRIP 09/08/2024 1: 01 AM CDT PLATELET COUNT KIRK 09/07/2024 7:51 AM CDT MAGNESIUM Early AM 09/07/2024 7:51 AM CDT HEMOGLOBIN Early AM 09/07/2024 7:51 AM CDT BASIC METABOLIC PANEL Early AM 09/07/2024 7:51 AM CDT APTT Early AM 09/07/2024 7:51 AM CDT SCAN-CARDIAC STRIP 09/07/2024 1: 42 AM CDT XR CHEST 1 VIEW PORTABLE Routine 09/06/2024 8:10 AM CDT APTT Early AM 09/06/2024 6:03 AM CDT MAGNESIUM Early AM 09/06/2024 6:03 AM CDT BASIC METABOLIC PANEL Early AM 09/06/2024 6:03 AM CDT C-REACTIVE PROTEIN Early AM 09/06/2024 6: 03 AM CDT WHITE BLOOD COUNT Early AM 09/06/2024 6:0 3 AM CDT SCAN-CARDIAC STRIP 09/06/2024 12:44 AM CDT APTT Timed 09/05/2024 11:15 PM CDT APTT Timed 09/05/2024 4:18 PM CDT C-REACTIVE PROTEIN Today 09/05/2024 9: 19 AM CDT WHITE BLOOD COUNT Today 09/05/2024 9:1 9 AM CDT BLOOD GAS,VENOUS Today 09/05/2024 9:19 AM CDT BASIC METABOLIC PANEL Timed 09/05/2024 9:19 AM CDT APTT Timed 09/05/2024 9:19 AM CDT APTT Timed 09/05/2024 3:05 AM CDT SCAN-CARDIAC STRIP 09/05/2024 1: 24 AM CDT APTT Timed 09/04/2024 8:07 PM CDT EXTRA TUBE BLUE Today 09/04/2024 8:04 PM CDT BLOOD GAS,VENOUS Today 09/04/2024 12:31 PM CDT APTT Timed 09/04/2024 12:31 PM CDT C-REACTIVE PROTEIN KIRK 09/04/2024 5: 01 AM CDT APTT Timed 09/04/2024 5:01 AM CDT BASIC METABOLIC PANEL Early AM 09/04/2024 5:01 AM CDT BLOOD GAS,VENOUS Early AM 09/04/2024 5:01 AM CDT CBC W PLT NO DIFF Early AM 09/04/2024 5:0 1 AM CDT SCAN-CARDIAC STRIP 09/04/2024 1: 04 AM CDT APTT Today 09/03/2024 8:42 PM CDT PROTIME-INR KIRK 09/03/2024 11:44 AM CDT APTT KIRK 09/03/2024 11:44 AM CDT BLOOD GAS,VENOUS Today 09/03/2024 11:11 AM CDT XR CHEST 1 VIEW PORTABLE Routine 09/03/2024 8:40 AM CDT BASIC METABOLIC PANEL Early AM 09/03/2024 8:20 AM CDT CBC W PLT NO DIFF Early AM 09/03/2024 7:3 5 AM CDT SCAN-CARDIAC STRIP 09/03/2024 1: 45 AM CDT SCAN-CARDIAC STRIP 09/02/2024 10:57 PM CDT MR HEAD BRAIN WO STAT 09/02/2024 7:14 PM CDT LACTATE VENOUS STAT 09/02/2024 5:53 PM CDT MRSA/SA PCR STAT 09/02/2024 5:44 PM CDT TSH KIRK 09/02/2024 3:15 PM CDT TROPONIN T (HS) ONE TIME Timed 09/02/2024 3:15 PM CDT EKG 12 LEAD STAT 09/02/2024 3:[address] CHEST PE STUDY STAT 09/02/2024 2:4 1 PM CDT LACTATE VENOUS STAT 09/02/2024 2:28 PM CDT LACTATE SCREEN ISTAT W PAYNE STAT 09/02/2024 2:28 PM CDT EXTRA TUBE PAYNE ON ICE STAT 09/02/2024 2:04 PM CDT ISTAT LACTATE SCREEN STAT 09/02/2024 2:04 PM CDT BLOOD CULTURE STAT 09/02/2024 1:58 PM CDT BLOOD CULTURE STAT 09/02/2024 1:57 PM CDT XR CHEST 1 VIEW PORTABLE STAT 09/02/2024 1:31 PM CDT CK TOTAL STAT 09/02/2024 1:07 PM CDT INFLUENZA A/B PCR STAT 09/02/2024 1:0 7 PM CDT COVID-19 MOLECULAR Today 09/02/2024 1: 07 PM CDT D-DIMER,QUANTITATIV E STAT 09/02/2024 1:07 PM CDT TROPONIN T (HS) ACUTE W/2HR REFLEX STAT 09/02/2024 1:07 PM CDT PROCALCITONIN STAT 09/02/2024 1:07 PM CDT BLOOD GAS,VENOUS STAT 09/02/2024 1:07 PM CDT PRO-BNP STAT 09/02/2024 1:07 PM CDT BASIC METABOLIC PANEL STAT 09/02/2024 1:07 PM CDT CBC W PLT NO DIFF STAT 09/02/2024 1:0 7 PM CDT EKG 12 LEAD STAT 09/02/2024 12:13 PM CDT [place] READING EKG - NO CHARGE, COMP ONLY Routine 08/14/2024 2:43 PM CDT Stenosis of right carotid artery EKG 12 LEAD Routine 08/14/2024 2:43 PM CDT Stenosis of right carotid artery CT CARDIAC CORONARY ARTERIES CV DUAL READ KIRK 08/13/2024 11:27 [address] CDT [address] CARDIAC CORONARY ARTERIES RAD DUAL READ KIRK 08/13/2024 11:27 AM CDT Anginal equivalent CREATININE,ISTAT Routine 08/13/2024 9:17 AM CDT Preprocedural cardiovascular examination BASIC METABOLIC PANEL Routine 08/11/2024 11:26 AM CDT Preop examination HEMOGLOBIN Routine 08/11/2024 11:26 AM CDT Preop examination CT ANGIO HEAD AND NECK CAROTID STAT 08/04/2024 8:03 AM CDT Stenosis of right carotid artery ECHO TTE COMPLETE W CONTRAST W BUBBLE Routine 07/27/2024 1:46 PM CDT Cerebrovascular accident (CVA), unspecified mechanism (HC) EXTENDED HOLTER Routine 07/07/2024 Cerebrovascular accident (CVA), unspecified mechanism (HC) MR HEAD BRAIN WO Routine 07/06/2024 10:58 AM CDT Tremor Left arm weakness US CAROTID DUPLEX BILATERAL Routine 07/06/2024 10:52 AM CDT Amaurosis fugax of right eye VITAMIN B12 Routine 06/24/2024 3:46 PM CDT B12 deficiency CBC WITH AUTO DIFFERENTIAL Routine 06/24/2024 3:46 PM CDT Hypertension, unspecified type BASIC METABOLIC PANEL Routine 06/24/2024 3:46 PM CDT Hypertension, unspecified type HEPATIC FUNCTION PANEL Routine 06/24/2024 3:46 PM CDT Hypertension, unspecified type TSH WITH REFLEX Routine 06/24/2024 3:46 PM CDT Subclinical hypothyroidism LIPID PANEL W REFLEX MEASURED LDL Routine 06/24/2024 3:46 PM CDT Pure hypercholesterolemia OCCULT BLOOD IFOBT STOOL Routine 07/24/2023 3:04 PM CDT Screening for colon cancer US AORTA Routine 02/15/2020 8:31 AM HOUSE REGISTRY RN Screening for AAA (abdominal aortic aneurysm) SCAN-COLONOSCOPY 02/04/2017 12:00 AM HOUSE REGISTRY RN ANTI HCV Routine 11/08/2016 9:21 AM CDT Need for hepatitis C screening test from Last 3 Months or Most Recently Relevant to Health Maintenance Results * (ABNORMAL) CBC AND DIFFERENTIAL (09/16/2024 3:09 PM CDT) Only the most recent of2 resultswithin the time period is included. WHITE BLOOD CELL COUNT 11.1(H) 3.8 - 10.8 Thousand/u L [facility] RED BLOOD CELL COUNT 4.59 4.20 - 5.80 Million/uL [facility] HEMOGLOBIN 13.5 13.2 - 17.1 g/dL [facility] HEMATOCRIT 43.2 38.5 - 50.0 % [facility] MCV 94.1 80.0 - 100.0 fL [facility] MCH 29.4 27.0 - 33.0 pg [facility] MCHC 31.3(L) 32.0 - 36.0 g/dL [facility] Comment: For adults, a slight decrease in the calculated MCHC value (in the range of 30 to 32 g/dL) is most likely not clinically significant; however, it should be interpreted with caution in correlation with other red cell parameters and the patient's clinical condition. RDW 12.7 11.0 - 15.0 % [facility] PLATELET COUNT 502(H) 140 - 400 Thousand/u L [facility] MPV 10.4 7.5 - 12.5 fL [facility] ABSOLUTE NEUTROPHILS 9,923(H) 1,500 - 7,800 cells/uL [facility] ABSOLUTE LYMPHOCYTES 788(L) 850 - 3,900 cells/uL [facility] ABSOLUTE MONOCYTES 366 200 - 950 cells/uL [facility] ABSOLUTE EOSINOPHILS 11(L) 15 - 500 cells/uL [facility] ABSOLUTE BASOPHILS 11 0 - 200 cells/uL [facility] NEUTROPHILS 89.4 % [facility] LYMPHOCYTES 7.1 % [facility] MONOCYTES 3.3 % [facility] EOSINOPHILS 0.1 % [facility] BASOPHILS 0.1 % [facility] Blood BLOOD SPECIMEN / Unknown 09/16/2024 3:09 PM CDT 09/16/2024 3:09 PM CDT Cinthia Mason MD HEMATOLOGY Final Result [employer] [facility] [address] [place] [address], [employer] [address] [place] [address] * (ABNORMAL) BASIC METABOLIC PANEL (09/16/2024 3:09 PM CDT) Only the most recent of11 resultswithin the time period is included. [facility] GLUCOSE 110(H) 65 - 99 mg/dL [facility] Comment: Fasting reference interval For someone without known diabetes, a glucose value between 100 and 125 mg/dL is consistent with prediabetes and should be confirmed with a follow-up test. UREA NITROGEN (BUN) 27(H) 7 - 25 mg/dL [facility] CREATININE 1.05 0.70 - 1.28 mg/dL [facility] EGFR 76 > OR = 60 mL/min/1.7 3m2 [facility] BUN/CREATININE RATIO 26(H) 6 - 22 (calc) [facility] SODIUM 137 135 - 146 mmol/L [facility] POTASSIUM 5.9(H) 3.5 - 5.3 mmol/L [facility] CHLORIDE 95(L) 98 - 110 mmol/L [facility] CARBON DIOXIDE 31 20 - 32 mmol/L [facility] ELECTROLYTE BALANCE 11 7 - 17 mmol/L (calc) [facility] CALCIUM 9.8 8.6 - 10.3 mg/dL [facility] Blood BLOOD SPECIMEN / Unknown 09/16/2024 3:09 PM CDT 09/16/2024 3:09 PM CDT Cinthia Mason MD CHEMISTRY Final Result [employer] [facility] [address] [place] [address], [place] [phone] [employer] [address] [place] [address] * PLATELET COUNT (09/12/2024 6:13 AM CDT) Only the most recent of6 resultswithin the time period is included. Pathologist [facility] PLATELET COUNT 422 140 - 440 thou/cu mm 09/12/2024 6:40 AM CDT [facility] MPV 9.0 6.5 - 11.0 fL 09/12/2024 6:40 AM CDT [facility] Blood BLOOD SPECIMEN / Unknown Venipuncture / Unknown 09/12/2024 6:13 AM CDT 09/12/2024 6:29 AM CDT Dyllan Santacruz DO HEMATOLOGY Rahel l Result Performing Organization Address [facility] Co de Phone Number [facility] [address] [place], [place] [id number], [place] * (ABNORMAL) HEMOGLOBIN (09/12/2024 6:13 AM CDT) Only the most recent of7 resultswithin the time period is included. [facility] HEMOGLOBIN 11.9(L) 13.5 - 17.5 g/dL 09/12/2024 6:40 AM CDT [facility] MCV 94 80 - 100 fL 09/12/2024 6:40 AM CDT [facility] Blood BLOOD SPECIMEN / Unknown Venipuncture / Unknown 09/12/2024 6:13 AM CDT 09/12/2024 6:29 AM CDT [facility] Humberto Cliftondak DO HEMATOLOGY Rahel l Result Performing Organization Address City/[facility]/ZIP Co de Phone Number [facility] [address] [place] [address], [place] * POTASSIUM (09/12/2024 6:13 AM CDT) Only the most recent of3 resultswithin the time period is included. POTASSIUM 3.9 3.5 - 5.1 mmol/L 09/12/2024 7:13 AM CDT [facility] Blood BLOOD SPECIMEN / Unknown Venipuncture / Unknown 09/12/2024 6:13 AM CDT 09/12/2024 6:29 AM CDT us Dyllan Humberto Santacruz DO CHEMISTRY Rahel l Result [facility] [address] [place] [address], * SCAN-CARDIAC STRIP (09/12/2024 1:06 AM CDT) us Scanner OTHER Final Result * SCAN-CARDIAC STRIP (09/11/2024 12:28 AM CDT) us Scanner OTHER Final Result * XR CHEST 1 VIEW PORTABLE (09/10/2024 9:59 AM CDT) Only the most recent of4 resultswithin the time period is included. Anatomical Region Laterality Modality HEART, THORAX, CHEST Digital Rad iography 09/10/2024 10:1 2 AM CDT Impressions 09/10/2024 10:12 AM CDT Appearance CHF/pulmonary edema, improved Dictated by Olayinka Banks MD @ [employer] 2024 10:12AM (Electronically Signed) [email or web address] Narrative 09/10/2024 10:12 AM CDT For Patients: As a result of the Century Cures Act, medical imaging exams and procedure reports are released immediately into your electronic medical record. You may view this report before your referring provider. If you have questions, please contact your health care provider. INDICATION: SOB TECHNIQUE: Semi upright portable AP image of the chest COMPARISON: 09/06/2024 FINDINGS: Bibasilar infiltrates improved. Pulmonary venous congestion, decreased. Heart size normal. Possible trace pleural effusions. Procedure Note Olayinka Banks MD - 09/10/2024 For Patients: As a result of the Cures Act, medical imagingexams and procedure reports are released immediately into your electronicmedical record. You may view this report before your referring provider.If you have questions, please contact your health care provider. INDICATION: SOB TECHNIQUE: Semi upright portable AP image of the chest COMPARISON: 09/06/2024 FINDINGS: Bibasilar infiltrates improved. Pulmonary venous congestion, decreased.Heart size normal. Possible trace pleural effusions. IMPRESSION: Appearance CHF/pulmonary edema, improved Dictated by Olayinka Banks MD @ [employer] 2024 10:12AM (Electronically Signed) [email or web address] us Dyllan Humberto Santacruz DO GENERAL IMAGING Rahel l Result * SCAN-CARDIAC STRIP (09/10/2024 12:45 AM CDT) us Scanner OTHER Final Result * SCAN-CARDIAC STRIP (09/09/2024 6:44 AM CDT) us Scanner OTHER Final Result * SCAN-CARDIAC STRIP (09/09/2024 6:39 AM CDT) us Scanner OTHER Final Result * SODIUM (09/09/2024 6:12 AM CDT) Only the most recent of2 resultswithin the time period is included. SODIUM 143 136 - 145 mmol/L 09/09/2024 7:03 AM CDT [facility] Blood BLOOD SPECIMEN / Unknown Venipuncture / Unknown 09/09/2024 6:12 AM CDT 09/09/2024 6:30 AM CDT us Dyllan Santacruz DO CHEMISTRY Rahel l Result [facility] [address] [place] [address], [place] * CREATININE (09/09/2024 6:12 AM CDT) Only the most recent of2 resultswithin the time period is included. [facility] eGFR >90 >90 mL/min/1.7 3m2 09/09/2024 7:03 AM CDT [facility] Comment:As of 2021, eG FR is calculated by the CKD-EPI creatinine equation without race adjustment. eGFR can be influenced by muscle mass, exercise, and diet. The reported eGFR is an estimation only and is only applicable if the renal function is stable. CREATININE 0.87 0.70 - 1.20 mg/dL 09/09/2024 7:03 AM CDT [facility] Blood BLOOD SPECIMEN / Unknown Venipuncture / Unknown 09/09/2024 6:12 AM CDT 09/09/2024 6:30 AM CDT [facility] [employer] CHEMISTRY Rahel l Result Performing Organization Address City/[facility]/ZIP Co de Phone Number [facility] [address] [place] [address], [place] * (ABNORMAL) CO2,TOTAL (09/09/2024 6:12 AM CDT) Only the most recent of2 resultswithin the time period is included. [facility] CO2,TOTAL 38(H) 22 - 29 mmol/L 09/09/2024 7:03 AM CDT [facility] Blood BLOOD SPECIMEN / Unknown Venipuncture / Unknown 09/09/2024 6:12 AM CDT 09/09/2024 6:30 AM CDT [facility] [employer] CHEMISTRY Rahel l Result Performing Organization Address City/[facility]/ZIP Co de Phone Number [facility] [address] [place] [address], [place] * APTT (09/09/2024 6:12 AM CDT) Only the most recent of13 resultswithin the time period is included. [facility] APTT 31 25 - 36 sec 09/09/2024 6:45 AM CDT [facility] Blood BLOOD SPECIMEN / Unknown Venipuncture / Unknown 09/09/2024 6:12 AM CDT 09/09/2024 6:30 AM CDT Narrative [facility] - 09/09/2024 6:45 AM CDT Therapeutic Range: 59-89 seconds Dyllan Santacruz DO HEMATOLOGY Rahel l Result Performing Organization Address City/[facility]/ZIP Co de Phone Number [facility] [address] [place] [address], [place] * SCAN-CARDIAC STRIP (09/09/2024 2:38 AM CDT) us Scanner OTHER Final Result * (ABNORMAL) ACTIVATED CLOTTING TIME [id number] ACT (09/08/2024 4:58 PM CDT) Pathologist [facility] ACTIVATED CLOTTING TIME, POCT 174(H) 74 - 125 sec 09/08/2024 7:10 PM CDT [facility] Blood BLOOD SPECIMEN / Unknown 09/08/2024 4:58 PM CDT 09/08/2024 7:09 PM CDT Dyllan Santacruz DO HEMATOLOGY Rahel l Result Performing Organization Address City/[facility]/ZIP Co de Phone Number [facility] [address] [place] [address], [place] * CVL CORONARY ANGIOGRAM POSS PCI (09/08/2024 4:47 PM CDT) Anatomical Region Laterality Modality Other 09/08/2024 4:47 PM CDT Narrative Transcriptions Kirk Fleming MD - 09/08/2024 5:26 PM CDT [facility] Cardiac Catheterization Report Name: MITCHEL BERNABE Event Date: 09/08/2024 16:47 Excellian ID #: [id number] DAWSON #: [id number] Patient Class: Inpatient Diagnostic Physician: KIRK FLEMING [facility] Referring Physician: Date: 1955 Gender: Male Age: 69 Summary/Conclusions PRESENTATION / INDICATIONS * Pneumonia COPD Dyspnea on exertion Carotid stenosis Abnormal coronary CTA Atrial fibrillation VASCULAR ACCESS * Using ultrasound guidance and a percutaneous technique, the right commonfemoral artery was accessed. Ultrasound was used to confirm vesselpatency, localizing needle into the lumen of the vessel. An image wassaved for the medical record. SPECIAL PROCEDURES * Right femoral arteriotomy was successfully closed utilizing a closuredevice DIAGNOSTIC SUMMARY Calcified coronary arteries ? The LMCA is normal. ? 40% stenosis in the Mid LAD ? 50% stenosis in the 1st Marginal ? The RCA is dominant. ? 60% stenosis in the Mid RCA LEFT VENTRICULAR FUNCTION ? LV Pressure = 116/19. Moderate nonobstructive coronary artery disease Medical therapy with clinical follow up Digoxin 0.25mg given in CV lab for afib with RVR in 110 range. Consent & [place] Protocol The risks, benefits, and alternatives of the procedure were discussed withthe patient and written informed consent was obtained. [place] protocol was followed. TIME OUT conducted just prior tostarting procedure confirmed patient identity, site/side, procedure,patient position, and availability of correct equipment and implants (ifapplicable). Staff Name Title Shemar Bhagat RN Nurse Beatriz Kuhn RN Nurse Maya Ignacio CVT Monitor Dolores Saldivar CVT Monitor Nikkie Li APRON OPERATOR Brake Repair Supervisor Osmar Sheets CVT Scrub Jose Limon Fellow KIRK FLEMING Diagnostic Welding Specialist Procedures ? Ultrasound Guided Vascular Access ? Coronary Angiogram ? Left Heart Cath No Ventriculogram Diagnostic Findings * Left Main Coronary Artery ? The LMCA is normal. * Left Anterior Descending ? 40% stenosis in the Mid LAD. * Circumflex ? 50% stenosis in the 1st Marginal. * Right Coronary Artery ? The RCA is dominant. ? 60% stenosis in the Mid RCA. Lesion Information Lesion # Vessel Segment Lesion Length Lesion Details Mid LAD 1st Marginal Mid RCA Hemodynamics State: Baseline Pressures (mmHg) Site Systolic Diastolic End Diastolic A Wave V Wave Mean AO 116 86 99 AO 123 82 95 LV 116 14 19 LV 115 14 22 Procedure Details Estimated Blood Loss: < 30 ml Specimen Collected: None Level of Sedation Achieved: Moderate Procedure Start: 16:47 Procedure End: 17:06 Procedure Time: 19 min Fluoroscopy Time: 2.1 min Cumulative Air Kerma: 473 mGy DAP: 2800 uGy/M2 Contrast: Omnipaque (low-osmolar), 65 ml Physiologic Data Weight: 101.8 kg BSA: 2.15 m2 Vascular Access Time Access Sheath Size 16:51 Right Femoral Artery, sheath inserted Complications ? No Complications Medications Ordered and Administered Start Time Stop Time Medication Dose Units Route Ordered By Given By 16:46 Fentanyl 50 mcg IV Kirk Fleming Valaria RN 16:46 Versed 1 mg IV Kirk Fleming Valaria RN 16:49 1% Lidocaine 10 ml Subcut Kirk Fleming Karan 16:56 Nitroglycerin 100 mcg IC Matilde Flemingil Jose Michaels 17:02 Digoxin 250 mcg IV Kirk Fleming Valaria RN 17:12 Lidocaine 1% w/Epi 1:100,000 4 ml Subcut Poulasif Kirk Jose Michaels I personally monitored the patient?s conscious sedation during theprocedure. Conscious sedation starts with the first sedation medication dose ofFentanyl or Versed and ends when the procedure is completed, the patientis stable for recovery status, and the physician or other qualified healthcare professional providing the sedation ends personal [id number]-et-[id number] time with the patient. The medications listed above were verbally ordered by me and read back tome as documented above. Refer to the procedure log report for additional case details. electronically signed on 09/08/2024 5:26:30 PM with status of Final Kirk Fleming MD [facility] [place] [id number] [address] (p) [phone](f) us Provider Referring CV IMAGING Edited Result - Final * (ABNORMAL) C-REACTIVE PROTEIN (09/08/2024 6:41 AM CDT) Only the most recent of4 resultswithin the time period is included. C-REACTIVE PROTEIN 2.2(H) <0.5 mg/dL 09/08/2024 7:33 AM CDT [facility] Blood BLOOD SPECIMEN / Unknown Butterfly / Unknown 09/08/2024 6:41 AM CDT 09/08/2024 6:49 AM CDT Dyllan Santacruz DO CHEMISTRY Rahel l Result Performing Organization Address [facility]/ZIP Co de Phone Number [facility] [address] [phone], [place] * URIC ACID (09/08/2024 6:41 AM CDT) URIC ACID 6.0 3.4 - 7.0 mg/dL 09/08/2024 2:22 PM CDT [facility] Blood BLOOD SPECIMEN / Unknown Butterfly / Unknown 09/08/2024 6:41 AM CDT 09/08/2024 6:49 AM CDT Dyllan Humberto Elodiatapan CHEMISTRY Rahel l Result Performing Organization Address [facility] de Phone Number [facility] [address] [phone], [place] * MAGNESIUM (09/08/2024 6:41 AM CDT) Only the most recent of3 resultswithin the time period is included. MAGNESIUM 1.8 1.6 - 2.4 mg/dL 09/08/2024 7:33 AM CDT [facility] Blood BLOOD SPECIMEN / Unknown Butterfly / Unknown 09/08/2024 6:41 AM CDT 09/08/2024 6:49 AM CDT Cecy BALDERAS CHEMISTRY Fin al Result Performing Organization Address City/[facility] Co de Phone Number [facility] [address] [place] [address], [place] * SCAN-CARDIAC STRIP (09/08/2024 1:01 AM CDT) us Scanner OTHER Final Result * SCAN-CARDIAC STRIP (09/07/2024 1:42 AM CDT) us Scanner OTHER Final Result * WHITE BLOOD COUNT (09/06/2024 6:03 AM CDT) Only the most recent of2 resultswithin the time period is included. WHITE BLOOD COUNT 11.0 4.5 - 11.0 thou/cu mm 09/06/2024 6:36 AM CDT [facility] NRBC 0.0 % 09/06/2024 6:36 AM CDT [facility] ABS NRBC 0.0 thou /cu mm 09/06/2024 6:36 AM CDT [facility] Blood BLOOD SPECIMEN / Unknown Venipuncture / Unknown 09/06/2024 6:03 AM CDT 09/06/2024 6:30 AM CDT Maria Eugenia Batres MD HEMATOLOGY Final Res ult [facility] [address] [place] [address], [place] * SCAN-CARDIAC STRIP (09/06/2024 12:44 AM CDT) us Scanner OTHER Final Result * (ABNORMAL) BLOOD GAS,VENOUS (09/05/2024 9:19 AM CDT) Only the most recent of5 resultswithin the time period is included. PH, VENOUS 7.32 7.32 - 7.43 09/05/2024 9:32 AM CDT [facility] PCO2, VENOUS 62(H) 41 - 51 mmHg 09/05/2024 9:32 AM CDT [facility] PO2, VENOUS 72(H) 35 - 40 mmHg 09/05/2024 9:32 AM CDT [facility] HCO3,VENOUS 32(H) 22 - 29 mmol/L 09/05/2024 9:32 AM CDT [facility] BASE EXCESS, VENOUS, POCT 4.0(H) -2.0 - 3.0 09/05/2024 9:32 AM CDT [facility] O2 SATURATION, VENOUS 97(H) 70 - 75 % 09/05/2024 9:32 AM CDT [facility] PATIENT TEMPERATURE 37.0 Degrees C 09/05/2024 9:32 AM CDT [facility] Blood VENOUS BLOOD SPECIMEN / Unknown Venipuncture / Unknown 09/05/2024 9:19 AM CDT 09/05/2024 9:27 AM CDT Maria Eugenia Batres MD CHEMISTRY Final Res ult Performing Organization Address City/[facility]/ZIP Co de Phone Number [facility] [address] [place] [address], * SCAN-CARDIAC STRIP (09/05/2024 1:24 AM CDT) us Scanner OTHER Final Result * EXTRA TUBE BLUE (09/04/2024 8:04 PM CDT) Blood BLOOD SPECIMEN / Unknown Non-Lab Venipuncture / Unknown 09/04/2024 8:04 PM CDT 09/04/2024 8:14 PM CDT Maria Eugenia Batres MD LABORATORY Final Res ult Performing Organization Address City/[facility]/ZIP Co de Phone Number [facility] [address] [place] [address], [place] * (ABNORMAL) CBC (09/04/2024 5:01 AM CDT) Only the most recent of3 resultswithin the time period is included. WHITE BLOOD COUNT 16.2(H) 4.5 - 11.0 thou/cu mm 09/04/2024 5:26 AM CDT [facility] RED BLOOD COUNT 3.60(L) 4.30 - 5.90 mil/cu mm 09/04/2024 5:26 AM CDT [facility] HEMOGLOBIN 11.1(L) 13.5 - 17.5 g/dL 09/04/2024 5:26 AM CDT [facility] HEMATOCRIT 35.5(L) 37.0 - 53.0 % 09/04/2024 5:26 AM CDT [facility] MCV 99 80 - 100 fL 09/04/2024 5:26 AM CDT [facility] MCH 30.8 26.0 - 34.0 pg 09/04/2024 5:26 AM CDT [facility] MCHC 31.3(L) 32.0 - 36.0 g/dL 09/04/2024 5:26 AM CDT [facility] RDW 12.6 11.5 - 15.5 % 09/04/2024 5:26 AM CDT [facility] PLATELET COUNT 267 140 - 440 thou/cu mm 09/04/2024 5:26 AM CDT [facility] MPV 9.5 6.5 - 11.0 fL 09/04/2024 5:26 AM CDT [facility] NRBC 0.0 % 09/04/2024 5:26 AM CDT [facility] ABS NRBC 0.0 thou /cu mm 09/04/2024 5:26 AM CDT [facility] Blood BLOOD SPECIMEN / Unknown Venipuncture / Unknown 09/04/2024 5:01 AM CDT 09/04/2024 5:22 AM CDT us Maria Eugenia Batres MD HEMATOLOGY Final Res ult [facility] [address] [place] [address], * SCAN-CARDIAC STRIP (09/04/2024 1:04 AM CDT) us Scanner OTHER Final Result * (ABNORMAL) PROTIME-INR (09/03/2024 11:44 AM CDT) INR 1.3(H) <1.3 09/03/2024 12:02 PM CDT [facility] PROTIME 14.7(H) 10.6 - 12.4 sec 09/03/2024 12:02 PM CDT [facility] Blood BLOOD SPECIMEN / Unknown Venipuncture / Unknown 09/03/2024 11:44 AM CDT 09/03/2024 11:51 AM CDT Narrative [facility] - 09/03/2024 12:02 PM CDT Therapeutic Range 2.0-3.0 for most anticoagulated patients 2.5-3.5 or 4.0 for high risk patients The INR is only used for patients on stable oral anticoagulant therapy. It makes no significant contribution to the diagnosis or treatment of patients whose Protime is prolonged for other reasons. INR results are increased when heparin levels exceed 1.0 U/mL, which corresponds to an aPTT >125 seconds if the patient is on UFH. us Cecy BALDERAS HEMATOLOGY Fin al Result [facility] [address] [place] [address], * SCAN-CARDIAC STRIP (09/03/2024 1:45 AM CDT) us Scanner OTHER Final Result * SCAN-CARDIAC STRIP (09/02/2024 10:57 PM CDT) us Scanner OTHER Final Result * MR Brain wo Contrast - TIA or Stroke (09/02/2024 7:14 PM CDT) Only the most recent of2 resultswithin the time period is included. Anatomical Region Laterality Modality BRAIN, HEAD Magnetic Resonan ce 09/02/2024 7:34 PM CDT Narrative 09/02/2024 7:34 PM CDT For Patients: As a result of the Century Cures Act, medical imaging exams and procedure reports are released immediately into your electronic medical record. You may view this report before your referring provider. If you have questions, please contact your health care provider. Indication: Intermittent LLE weakness, LUE paresthesias Technique: Noncontrast sagittal T1 weighted, axial FLAIR, axial T2 weighted, and axial diffusion weighted sequences are provided. Comparison: MRI 07/06/2024. Findings: Examination is limited by motion artifact. The ventricles, sulci and gyri are normal size, shape and contour for age. Prominent perivascular space left basal ganglia. Few scattered small foci of T2 prolongation in the periventricular and subcortical white matter of both cerebral hemispheres are nonspecific. The midline structures are centrally located with no evidence of shift. Similar fluid in the right middle ear canal. Impression: 1. No acute intracranial abnormality. No significant changes compared to the 07/06/2024 exam. 2. Mild presumed chronic small-vessel ischemic changes. 3. Similar fluid in the right middle ear canal. 4. Examination is limited by motion artifact. Dictated by Mitchel Justice MD @ 09/02/2024 7:34:52 PM (Electronically Signed) Procedure Note Mitchel Justice MD - 09/02/2024 For Patients: As a result of the Century Cures Act, medical imagingexams and procedure reports are released immediately into your electronicmedical record. You may view this report before your referring provider.If you have questions, please contact your health care provider. Indication: Intermittent LLE weakness, LUE paresthesias Technique: Noncontrast sagittal T1 weighted, axial FLAIR, axial T2 weighted, andaxial diffusion weighted sequences are provided. Comparison: MRI 07/06/2024. Findings: Examination is limited by motion artifact. The ventricles, sulci and gyriare normal size, shape and contour for age. Prominent perivascular spaceleft basal ganglia. Few scattered small foci of T2 prolongation in theperiventricular and subcortical white matter of both cerebral hemispheresare nonspecific. The midline structures are centrally located with noevidence of shift. Similar fluid in the right middle ear canal. Impression: 1. No acute intracranial abnormality. No significant changes compared tothe 07/06/2024 exam. 2. Mild presumed chronic small-vessel ischemic changes. 3. Similar fluid in the right middle ear canal. 4. Examination is limited by motion artifact. Dictated by Mitchel Justice MD @ 09/02/2024 7:34:52 PM (Electronically Signed) Sarah Lanutrichar DO MR Final Result * (ABNORMAL) LACTATE VENOUS (09/02/2024 5:53 PM CDT) Only the most recent of2 resultswithin the time period is included. Pathologist [facility] LACTATE,VENOUS 2.2(H) 0.5 - 2.0 mmol/L 09/02/2024 6:44 PM CDT [facility] Blood BLOOD SPECIMEN / Unknown Non-Lab Venipuncture / Unknown 09/02/2024 5:53 PM CDT 09/02/2024 5:58 PM CDT Sarah Lanutt DO CHEMISTRY Final Result Performing Organization Address [facility] Co de Phone Number [facility] [address] [place] [address], * (ABNORMAL) MRSA/SA PCR (09/02/2024 5:44 PM CDT) [facility] MRSA DNA PCR Negative Negative 09/02/2024 7:45 PM CDT [facility] STAPHYLOCOCCUS AUREUS PCR Positive(A) Negative 09/02/2024 7:45 PM CDT [facility] Other SPECIMEN FROM INTERNAL NOSE / Unknown Non-Blood / Unknown 09/02/2024 5:44 PM CDT 09/02/2024 5:58 PM CDT Narrative [facility] - 09/02/2024 7:45 PM CDT S. aureus detected; NOT MRSA. Test result does not preclude MRSA nasal colonization. False negative for MRSA could be obtained if MRSA present in the sample is below threshold of detection. Sarah Lanutt DO MICROBIOLOGY Final Result Performing Organization Address [facility] Co de Phone Number [facility] [address] [place] [address], [place] * (ABNORMAL) TROPONIN T (HS) ONE TIME (09/02/2024 3:15 PM CDT) Pathologist [facility] TROPONIN T HS 81(H) 6-15 ng/L ng/L 09/02/2024 4:06 PM CDT [facility] Blood BLOOD SPECIMEN / Unknown Non-Lab Venipuncture / Unknown 09/02/2024 3:15 PM CDT 09/02/2024 3:31 PM CDT Sarah Cantrell DO CHEMISTRY Final Result [facility] [address] [place] [address], [place] * TSH (09/02/2024 3:15 PM CDT) [facility] TSH 2.38 0.27 - 4.20 uIU/mL 09/02/2024 5:37 PM CDT [facility] Blood BLOOD SPECIMEN / Unknown Non-Lab Venipuncture / Unknown 09/02/2024 3:15 PM CDT 09/02/2024 3:31 PM CDT Narrative [facility] - 09/02/2024 5:37 PM CDT In Adults, TSH values between 5.00 and 10.00 uIU/ml do not necessarily indicate the presence of Hypothyroidism. Correlation with clinical findings such as presence of goiter and/or Thyroperoxidase (TPO) Antibody may be helpful. For more information please refer to SEE 2004; 291: 228-238. Mraia Eugenia Batres MD CHEMISTRY Final Res ult [facility] [address] [place] [address], [place] * EKG 12 LEAD (09/02/2024 3:12 PM CDT) Only the most recent of3 resultswithin the time period is included. Pathologist [facility] Interpretation Atrial fibrillation Abnormal ECG Compared to ekg of 02-SEP-2024, Decreased Rate Ongoing Atrial fibrillation BEYOND NOW Ventricular Rate 94 BPM BEYOND NOW Atrial Rate BPM BEYOND NOW P-R Interval ms BEYOND NOW QRS Duration 100 ms BEYOND NOW QT 344 ms BEYOND NOW QTc 430 ms BEYOND NOW P Donna degrees BEYOND NOW R Donna 25 degrees BEYOND NOW T Donna 53 degrees BEYOND NOW 09/02/2024 3:12 PM CDT 09/02/2024 4:33 PM CDT Sarah Aragon Plutt DO EKG ORD Final Result BEYOND NOW [place], [place] * CT CHEST PE STUDY (09/02/2024 2:41 PM CDT) Anatomical Region Laterality Modality CHEST, THORAX, HEART Computed To mography 09/02/2024 3:03 PM CDT Impressions 09/02/2024 3:03 PM CDT 1. No evidence of pulmonary embolus. 2. New irregular nodular opacities greatest in the right upper lobe, worrisome for multifocal pneumonia. Dictated by David Acevedo MD @ 09/02/2024 3:02:31 PM Please note that all CT scans at this facility use dose modulation, iterative reconstruction, and/or weight-based dosing when appropriate to reduce radiation dose to as low as reasonably achievable. Dictated by: David Acevedo MD @ 09/02/2024 15:03:09 (Electronically Signed) Narrative 09/02/2024 3:03 PM CDT For Patients: As a result of the 21st Century Cures Act, medical imaging exams and procedure reports are released immediately into your electronic medical record. You may view this report before your referring provider. If you have questions, please contact your health care provider. INDICATION: Positive D-dimer. TECHNIQUE: CT chest pulmonary angiogram acquired with 100 mL of Omnipaque 350 IV contrast. Sagittal, coronal and maximum intensity projection reformatted images submitted for review. COMPARISON: None. FINDINGS: No evidence of pulmonary embolus. Main pulmonary artery and thoracic aorta are normal in caliber. Coronary artery calcifications. Borderline cardiomegaly. No pleural or pericardial effusions. Borderline and mildly enlarged mediastinal nodes have slightly increased. Soft tissues of the thoracic wall are unremarkable. No pneumothorax. Bullous emphysema and bilateral bronchiectasis and bronchial wall thickening, as before. Multiple new irregular nodular opacities greatest in the right upper lobe. Visualized upper abdomen shows no acute abnormality. Spine degenerative changes. No acute or suspicious osseous abnormality. Procedure Note David Acevedo DO - 09/02/2024 For Patients: As a result of the Cures Act, medical imagingexams and procedure reports are released immediately into your electronicmedical record. You may view this report before your referring provider.If you have questions, please contact your health care provider. INDICATION: Positive D-dimer. TECHNIQUE: CT chest pulmonary angiogram acquired with 100 mL of Omnipaque 350 IVcontrast. Sagittal, coronal and maximum intensity projection reformattedimages submitted for review. COMPARISON: None. FINDINGS: No evidence of pulmonary embolus. Main pulmonary artery and thoracic aortaare normal in caliber. Coronary artery calcifications. Borderlinecardiomegaly. No pleural or pericardial effusions. Borderline and mildlyenlarged mediastinal nodes have slightly increased. Soft tissues of thethoracic wall are unremarkable. No pneumothorax. Bullous emphysema and bilateral bronchiectasis andbronchial wall thickening, as before. Multiple new irregular nodularopacities greatest in the right upper lobe. Visualized upper abdomen shows no acute abnormality. Spine degenerative changes. No acute or suspicious osseous abnormality. IMPRESSION: 1. No evidence of pulmonary embolus. 2. New irregular nodular opacities greatest in the right upper lobe,worrisome for multifocal pneumonia. Dictated by David Acevedo MD @ 09/02/2024 3:02:31 PM Please note that all CT scans at this facility use dose modulation,iterative reconstruction, and/or weight-based dosing when appropriate toreduce radiation dose to as low as reasonably achievable. Dictated by: David Acevedo MD @ 09/02/2024 15:03:09 (Electronically Signed) Sarah Cantrell DO CT Final Result * (ABNORMAL) LACTATE SCREEN ISTAT W PAYNE (09/02/2024 2:28 PM CDT) LACTATE VENOUS SCREEN ISTAT Intermedia te(A) <=2.0 09/02/2024 3:27 PM CDT [facility] LACTATE SCREEN VENOUS POCT 3.4(H) <=2.0 09/02/2024 3:27 PM CDT [facility] Blood BLOOD SPECIMEN / Unknown 09/02/2024 2:28 PM CDT 09/02/2024 3:27 PM CDT Narrative [facility] - 09/02/2024 3:27 PM CDT Lactate screen results of 2.1-3.9 mmol/L are reported as Intermediate. Lactate screen results of 4.0 mmol/L or greater are reported as Critical. Elevated whole blood lactate screening results >2.0 are automatically referred for confirmatory plasma lactate quantitation. Sarah Aragon [facility] Final Result Performing Organization Address [facility] Co de Phone Number [facility] [address] [place] [address], [place] * EXTRA TUBE PAYNE ON ICE (09/02/2024 2:04 PM CDT) Blood BLOOD SPECIMEN / Unknown Non-Lab Venipuncture / Unknown 09/02/2024 2:04 PM CDT 09/02/2024 2:13 PM CDT [facility] Final Result Performing Organization Address [facility] Co de Phone Number [facility] [address] [phone], [place] * BLOOD CULTURE X2 (09/02/2024 1:58 PM CDT) Only the most recent of2 resultswithin the time period is included. CULTURE No Growth. 09/07/2024 3:21 PM CDT [facility] Blood BLOOD SPECIMEN / Unknown Non-Lab Venipuncture / Unknown 09/02/2024 1:58 PM CDT 09/03/2024 8:56 AM CDT Narrative [facility] - 09/07/2024 3:21 PM CDT Low volume blood culture received; possible false negative culture. Sarah Lanutt DO MICROBIOLOGY Final Result Performing Organization Address [facility] Co de Phone Number [facility] [address] [place] [address], * COVID-19 MOLECULAR (09/02/2024 1:07 PM CDT) Pathologist [facility] COVID 19 [facility] MOLE[facility]ULAR Negative Negative 09/02/2024 2:28 PM CDT [facility] Comment:All PCR tests are najera bject to false negative result due to variability in viral load and collection technique. A negative result does not rule out a SARS-CoV-2 infection. Clinical correlation required. TESTING LABORATORY [facility] 09/02/2024 2:28 PM CDT [facility] Comment:Specimen submitted t o [facility] for testing. Other SPECIMEN FROM NASOPHARYNGEAL STRUCTURE / Unknown Non-Blood / Unknown 09/02/2024 1:07 PM CDT 09/02/2024 1:13 PM CDT Sarah Cantrell DO MICROBIOLOGY Final Result Performing Organization Address [facility] Co de Phone Number [facility] [address] [place] [address], [place] * (ABNORMAL) TROPONIN T (HS) ACUTE W/2HR REFLEX (09/02/2024 1:07 PM CDT) Pathologist [facility] TROPONIN T HS 78(H) 6-15 ng/L ng/L 09/02/2024 1:50 PM CDT [facility] Blood BLOOD SPECIMEN / Unknown Line/Port / Unknown 09/02/2024 1:07 PM CDT 09/02/2024 1:13 PM CDT Narrative [facility] - 09/02/2024 1:50 PM CDT hs-cTnT (Elecsys Troponin T Gen 5) concentration (s) above the sex-specific 99th percentile (16 ng/L or greater for males or 11 ng/L or greater for females) are indicative of myocardial injury. If initial hs-cTnT <=100 ng/L at presentation, a 0h/2h ABSOLUTE (ng/L) delta change (rising or falling) of >=10 ng/L suggests a significant change, whereas a 0h/2h delta change <=3 ng/L suggests no significant change. If initial hs-cTnT >100 ng/L at presentation, a 0h/2h/ RELATIVE (percent, %) delta change of 20% is suggested to distinguish patients with acute vs. chronic myocardial injury. There are multiple etiologies that can cause hs-cTnT increases above the 99th percentile (myocardial injury) other than acute myocardial infarction. Clinical context and careful clinical evaluation are critical for diagnosis and risk-stratification. The diagnosis of acute myocardial infarction requires a rising and/or falling pattern in hs-cTnT concentrations with at least one value above the sex-specific 99th percentile PLUS at least one of the following clinical criteria: ischemic symptoms, new or presumed new significant ST-T wave changes or new LBBB, development of pathological Q waves, imaging evidence of new loss of viable myocardium or new regional wall motion abnormality, or identification of intracoronary atherothrombosis or an acute angiographic culprit on coronary angiography. In appropriate low-risk patients with a non-ischemic electrocardiogram without active chest pain with a symptom onset >3-hours without recurrence, a single initial hs-cTnT<6 ng/L identifies patient with a very low risk in emergency department patient population. Sarah Cantrell DO CHEMISTRY Final Result [facility] [address] [place] [address], * INFLUENZA A/B PCR (09/02/2024 1:07 PM CDT) INFLUENZA A PCR Negative 09/02/2024 2:28 PM CDT [facility] INFLUENZA B PCR Negative 09/02/2024 2:28 PM CDT [facility] Other SPECIMEN FROM NASOPHARYNGEAL STRUCTURE / Unknown Non-Blood / Unknown 09/02/2024 1:07 PM CDT 09/02/2024 1:13 PM CDT us Sarah Learyureen Margo Cantrell DO MICROBIOLOGY Final Result [facility] [address] [place] [address], [place] * (ABNORMAL) PROCALCITONIN (09/02/2024 1:07 PM CDT) PROCALCITONIN 2.90(H) ng/ml 09/02/2024 1:50 PM CDT [facility] Blood BLOOD SPECIMEN / Unknown Line/Port / Unknown 09/02/2024 1:07 PM CDT 09/02/2024 1:13 PM CDT Narrative [facility] - 09/02/2024 1:50 PM CDT Procalcitonin for initial assessment of Lower Respiratory Tract Infection: Results Interpretation <0.10 ng/mL Antibiotic therapy strongly discoraged. Indicates absent of bacterial infection. * 0.10 - 0.25 ng/mL Antibiotic therapy discouraged. Bacterial infection unlikely. * 0.26 - 0.50 ng/mL Antibiotic therapy encouraged. Bacterial infection possible. >0.50 ng/mL Antibiotic therapy strongly encouraged. Suggestive of presence of bacterial infection. *Antibiotic therapy should be considered regardless of PCT result if the patient is clinically unstable, is at high risk for adverse outcome, has strong evidence of bacterial pathogen, or the clinical context indicates antibiotic therapy is warranted. If antibiotics are withheld, reassess if symptoms persist/worsen and/or repeat PCT measurement within 6-24 hours. In order to assess treatment success and to support a decision to discontinue antibiotic therapy, follow up samples should be tested once every 1-2 days, based upon physician discretion taking into account patient's evolution and progress. Procalcitonin for initial assessment of severe sepsis risk: Results Interpretation <0.5 ng/ml A PCT level below 0.5 ng/ml on the first day of ICU admission is associated with a low risk for progression to severe sepsis and/or septic shock. > 2.0 ng/mL A PCT level above 2.0 ng/mL on the first day of ICU admission is associated with a high risk for progression to severe sepsis and/or septic shock. Note: Concentrations < 0.5 ng/mL do not exclude an infection, on account of localized infections (without systemic signs) which can be associated with such low concentrations, or a systemic infection in its initial stages(< 6 hours). Furthermore, increased procalcitonin can occur without infection. PCT concentrations between 0.5 and 2.0 ng/mL should be interpreted taking into account the patient's history. It is recommended to retest PCT within 6-24 hours if any concentrations < 2 ng/mL are obtained. Sarah Aragon Plutt DO SEND OUTS Final Result Performing Organization Address [facility] de Phone Number [facility] [address] [address], [place] * (ABNORMAL) D-DIMER,QUANTITATIVE (09/02/2024 1:07 PM CDT) D-DIMER,QUANTI TATIVE 0.80 See comment FEU mcg/mL 09/02/2024 1:26 PM CDT [facility] D-DIMER INTERP Abnormal( A) 09/02/2024 1:26 PM CDT [facility] Blood BLOOD SPECIMEN / Unknown Line/Port / Unknown 09/02/2024 1:07 PM CDT 09/02/2024 1:13 PM CDT Narrative [facility] - 09/02/2024 1:26 PM CDT The cut off value for exclusion of Deep Vein Thrombosis and / or Pulmonary Embolism is 0.50 FEU mcg/mL For patients greater than 50 years of age the upper limit is age dependent and was calculated with the formula: (PATIENT AGE x 0.01) FEU mcg/mL = Upper limit of normal range Sarah Learyrosalee Lanutt DO HEMATOLOGY Final Result Performing Organization Address [facility] Co de Phone Number [facility] [address] [place] [address], [place] * (ABNORMAL) PRO-BNP (09/02/2024 1:07 PM CDT) PRO-BNP 1,616(H) <125 pg/mL 09/02/2024 1:50 PM CDT [facility] Blood BLOOD SPECIMEN / Unknown Line/Port / Unknown 09/02/2024 1:07 PM CDT 09/02/2024 1:13 PM CDT [facility] - 09/02/2024 1:50 PM CDT The following cut-points have been suggested for the use of proBNP for the diagnostic evaluation of heart failure (HF) in patient with acute dyspnea. Patients with eGFR >= 60 Diagnosis (rule in CHF) <50 Years Old 450 pg/mL 50 - 75 Years Old 900 pg/mL >75 Years Old 1800 pg/mL Exclusion (rule out CHF) Age Independent 300 pg/mL A cutoff of 1200 pg/mL for patients with an eGFR <60 yields a diagnostic sensitivity of 89% and specificity of 72% for acute congestive heart failure. us Sarah Cantrell DO SEND OUTS Final Result [facility] [address] [place] [address], * CK TOTAL (09/02/2024 1:07 PM CDT) CK,TOTAL 39 39 - 308 IU/L 09/02/2024 1:40 PM CDT [facility] Blood BLOOD SPECIMEN / Unknown Line/Port / Unknown 09/02/2024 1:07 PM CDT 09/02/2024 1:14 PM CDT us Sarah Lanutt DO CHEMISTRY Final Result [facility] [address] [place] [address], * [place] READING EKG - NO CHARGE, COMP ONLY (08/14/2024 2:43 PM CDT) us Cinthia Mason MD PB - PROVIDER READINGS Final Result * CT CARDIAC CORONARY ARTERIES CV DUAL READ (08/13/2024 11:27 AM CDT) Anatomical Region Laterality Modality HEART Computed Tomogra phy 08/13/2024 11:2 5 AM CDT Narrative 08/13/2024 4:36 PM CDT [facility] Cardiac CT Report Name: MITCHEL BERNABE : Scan Date: Accession Number: [id number] Status: Final Electronically signed by Haim Leslie 13:20:49 VITALS HEIGHT: 66 in (168 cm) WEIGHT: 229 lbs (104 kgs) BSA: 2.12 m^2 BMI: 37 kg/m^2 BP: 118 / 63 mmHg BASELINE HR: 54 BPM HEART RHYTHM: Normal Sinus Rhythm FINAL IMPRESSION 1. Moderate-severe multivessel CAD including - High risk plaque with moderate-severe stenosis in the mid RCA (napkin ring sign, low HU plaque, positive remodeling) - Diffuse calcific plaque causing moderate proximal-mid LAD stenosis - Moderate-severe ostial LADD2 stenosis 2. Total coronary artery calcium score 2841. MAY percentile based on age, gender, and race is 96. 3. Normal thoracic aorta size and morphology with no acute pathology in visualized segments. Recommend invasive coronary angiography as further evaluation. Please see separate radiology report for noncardiac findings STUDY QUALITY: Study quality is excellent. CAD-RADS: CAD-RADS Classification 3/V (50-69% stenosis, vulnerability). CALCIUM SCORING: Total coronary artery calcium score 2841. MAY percentile based on age, gender, and race is 96. DOMINANCE: Right dominant coronary artery system. LM: Shelf of calcium a long LCC adjacent to LM ostia noted. The LM has partially calcified atherosclerosis. There is a <25% LM stenosis. LAD: The proximal LAD has partially calcified atherosclerosis. There is a 25-49% proximal LAD stenosis. The mid LAD has calcified atherosclerosis. There is a 50-69% mid LAD stenosis. The distal LAD has calcified atherosclerosis. There is a <25% distal LAD stenosis. D1: The first diagonal has partially calcified atherosclerosis. There is a 25-49% first diagonal stenosis. D2: The second diagonal has non-calcified atherosclerosis. There is at least moderate ostial second diagonal stenosis. D3: The third diagonal has partially calcified atherosclerosis. There is a <25% third diagonal stenosis. LCX: The proximal LCx has partially calcified atherosclerosis. There is a <25% proximal LCx stenosis. There is no mid LCx stenosis. There is no distal LCx stenosis. OM1: The first obtuse marginal has calcified atherosclerosis. There is a 25-49% first obtuse marginal stenosis. OM2: Large vessel. The second obtuse marginal has partially calcified atherosclerosis. There is a 25-49% second obtuse marginal stenosis. OM3: The third obtuse marginal is too small to characterize. RCA: Shelf of calcium a long RCC adjacent to RCA ostia noted. The proximal RCA has partially calcified atherosclerosis. There is a <25% proximal RCA stenosis. The mid RCA has low attenuation plaque. The mid RCA has positive remodeling. The mid RCA has napkin ring sign. There is a moderate-severe mid RCA stenosis. The distal RCA has partially calcified atherosclerosis. There is a 25-49% distal RCA stenosis. RIGHT PDA: The right PDA has calcified atherosclerosis. There is a <25% right PDA stenosis. RIGHT PLB: The right posterolateral branch is normal. OTHER FINDINGS: Thoracic aorta: Aortic sinus maximum cusp-cusp: 37 x 40 x 37 mm. Ascending aorta maximum diameters: 31 x 31 mm. Descending thoracic aorta maximum diameters: 19 x 19 mm. Pericardium: No effusion. Left atrium: Normal contrast opacification. Atrial septum: No evidence of shunt. Pulmonary veins: Normal anatomy. Pulmonary trunk: 31 mm. CALCIUM SCORING TABLE . . Number of Lesions Pattern of Calcium Volume Total Score +-------+ + +--------+ + LM 144 LAD 1314 LCx 936 RCA 447 Ramus '-------+ + +--------+ ' SCAN INFO TEST TYPE: Calcium score, Coronary CT Angiography SCANNER PROCESS CONTROL SUPERVISOR: SIEMENS SCANNER MODEL: Yorxs DOSE REDUCTION ALGORITHM: Helical with dose modulation PHASE UNITS: % START PHASE: 67 % END PHASE: 72 % EKG GATED: Yes PRE-CONTRAST: Yes POST-CONTRAST: Yes 3D RECONSTRUCTION: Yes GENERAL CONTRAST AGENT CONTRAST AGENT USED?: Yes TYPE: Omnipaque 350 DOSE: 120 ml RATE: 7.5 ml/s ROUTE: IV ARM: Left BOLUS TECHNIQUE: Biphasic SERUM CREATININE: 1.2 mg/dL GFR: 63.62 ml/min/1.73m^2 CREATININE DATE: CT CONTRAST REACTION: None MEDICATION ADMINISTERED DURING SCAN TYPE: Nitroglycerin, sublingual, B-Blockers NITROGLYCERIN, TOTAL DOSE: 0.8 mg B-SHAHIDA TYPE: Oral B-SHAHIDA NAME, ORAL: Metoprolol tartrate B-BLOCKERS, ORAL DOSE: 100 mg RADIATION DOSE DLP: 405 KV: 120 SETUP PATIENT TYPE: Outpatient REASON(S) FOR SCAN: Other... OTHER, SPECIFY:: pre op eval REFERRING PHYSICIAN: CINTHIA MASON TECHNOLOGIST: Doris Holcomb BILLING Patient Account [id number] ICD10 Codes I20.89 Report generated by [employer], a product of [employer] us Cinthia Mason MD CT Final Result * CT CARDIAC CORONARY ARTERIES RAD DUAL READ (08/13/2024 11:27 AM CDT) Anatomical Region Laterality Modality HEART Computed Tomogra phy 08/13/2024 2:45 PM CDT Impressions 08/13/2024 2:45 PM CDT : 1. See separate cardiology report 2. Emphysema with large bulla in the lower lobes. Diffuse bronchiectasis, scarring. 3. Left lower lobe centrilobular Nodularity with nodules measuring up to 5 millimeters could be infectious/inflammatory follow-up in 3 months recommended. Please note that all CT scans at this facility use dose modulation, iterative reconstruction and/or weight-based dosing when appropriate to reduce radiation dose to as low as reasonably achievable. Please note that all CT scans at this facility use dose modulation, iterative reconstruction, and/or weight-based dosing when appropriate to reduce radiation dose to as low as reasonably achievable. Dictated by Dawna Proctor MD @ 08/13/2024 2:45:44 PM (Electronically Signed) Narrative 08/13/2024 2:45 PM CDT For Patients: As a result of the Cures Act, medical imaging exams and procedure reports are released immediately into your electronic medical record. You may view this report before your referring provider. If you have questions, please contact your health care provider. THIS IS THE RADIOLOGY OVER READ REPORT OF A DUAL READ STUDY. READ THE SEPARATE CARDIOLOGY REPORT FOR CARDIOVASCULAR FINDINGS. REPORTS MAY BE FINALIZED AT DIFFERENT TIMES. : COMPARISON: : CT 07/17/2023 TECHNIQUE: : Please see cardiology report for technical information. This exam is being performed in conjunction with the services provided by the [facility] ([facility]). INDICATION: Cardiac over-read. FINDINGS: No pulmonary emboli. There is emphysematous changes with bilateral bronchiectasis diffusely there is reticular changes in the anterior right upper lobe probably related to scarring only partially seen. Large bulla in the lower lobes. Basilar bronchial wall thickening. Left lower lobe centrilobular nodularity could be infectious/inflammatory with nodules measuring up to 5 millimeters. Procedure Note Dawna Proctor MD - 08/13/2024 For Patients: As a result of the Cures Act, medical imagingexams and procedure reports are released immediately into your electronicmedical record. You may view this report before your referring provider.If you have questions, please contact your health care provider. THIS IS THE RADIOLOGY OVER READ REPORT OF A DUAL READ STUDY. READ THESEPARATE CARDIOLOGY REPORT FOR CARDIOVASCULAR FINDINGS. REPORTS MAY BEFINALIZED AT DIFFERENT TIMES. : COMPARISON: : CT 07/17/2023 TECHNIQUE: : Please see cardiology report for technical information. This exam is being performed in conjunction with the services provided bythe [facility] ([facility]). INDICATION: Cardiac over-read. FINDINGS: No pulmonary emboli. There is emphysematous changes with bilateralbronchiectasis diffusely there is reticular changes in the anterior rightupper lobe probably related to scarring only partially seen. Large bullain the lower lobes. Basilar bronchial wall thickening. Left lower lobe centrilobular nodularity could be infectious/inflammatorywith nodules measuring up to 5 millimeters. IMPRESSION: : 1. See separate cardiology report 2. Emphysema with large bulla in the lower lobes. Diffuse bronchiectasis,scarring. 3. Left lower lobe centrilobular Nodularity with nodules measuring up to 5millimeters could be infectious/inflammatory follow-up in 3 monthsrecommended. Please note that all CT scans at this facility use dose modulation,iterative reconstruction and/or weight-based dosing when appropriate toreduce radiation dose to as low as reasonably achievable. Please note that all CT scans at this facility use dose modulation,iterative reconstruction, and/or weight-based dosing when appropriate toreduce radiation dose to as low as reasonably achievable. Dictated by Dawna Proctor MD @ 08/13/2024 2:45:44 PM (Electronically Signed) us Cinthia Mason MD CT Final Result * CREATININE,ISTAT (08/13/2024 9:17 AM CDT) POCT,CREATININE , ISTAT 1.2 0.6 - 1.3 mg/dL [facility] ( Blood BLOOD SPECIMEN / Unknown 08/13/2024 9:17 AM CDT 08/13/2024 9:17 AM CDT us Rk Guo MD CHEMISTRY Final Result [facility] [address] [place] [address], [facility] ( [address] [place] [address] * CTA HEAD AND NECK CAROTID (08/04/2024 8:03 AM CDT) Anatomical Region Laterality Modality BRAIN, NECK Computed Tomogra phy 08/04/2024 8:26 AM CDT Addenda Addendum by Kevin Pimentel MD on 08/04/2024 5:37 PM CDT For Patients: As a result of the Century Cures Act, medical imaging exams and procedure reports are released immediately into your electronic medical record. You may view this report before your referring provider. If you have questions, please contact your health care provider. CLINICAL HISTORY: Right-sided carotid stenosis. TECHNIQUE: Standard helical CT image acquisition through the head following the administration of intravenous contrast was performed. 3D and MIP reconstructions were performed at a separate workstation and permanently archived. COMPARISON: None available. FINDINGS: No intracranial proximal large vessel occlusion or flow-limiting luminal stenosis. No evidence of cerebral aneurysm. No findings to suggest an arterial-venous shunting lesion. IMPRESSION: No intracranial proximal large vessel occlusion, flow-limiting luminal stenosis, or cerebral aneurysm. Please note that all CT scans at this facility use dose modulation, iterative reconstruction, and/or weight-based dosing when appropriate to reduce radiation dose to as low as reasonably achievable. Dictated by Kevin Pimentel MD @ 08/04/2024 5:37:54 PM (Electronically Signed) Addendum by Kevin Pimentel MD on 08/04/2024 5:36 PM CDT For Patients: As a result of the [employer] Cures Act, medical imaging exams and procedure reports are released immediately into your electronic medical record. You may view this report before your referring provider. If you have questions, please contact your health care provider. CLINICAL HISTORY: Right carotid stenosis. TECHNIQUE: Standard helical CT image acquisition through the neck was performed after intravenous contrast bolus enhancement. 3D and MIP reconstructions were performed at a separate workstation and permanently archived. COMPARISON: None available. FINDINGS: The origins of the great vessels from the aortic arch are patent. The common carotid arteries are patent. Heavily calcified plaque results in severe to critical (80-90%) stenosis of the proximal right ICA by NASCET criteria. Heavily calcified plaque results in severe (75-80%) stenosis of the proximal left ICA by NASCET criteria. The more distal cervical ICAs are patent. The origins and cervical segments of the vertebral arteries are patent. Advanced emphysematous bullous changes within the right greater than left lung apices. IMPRESSION: 1. Severe to critical (80-90%) stenosis of the proximal right ICA by NASCET criteria. 2. Severe (75-80%) stenosis of the proximal left ICA by NASCET criteria. Please note that all CT scans at this facility use dose modulation, iterative reconstruction, and/or weight-based dosing when appropriate to reduce radiation dose to as low as reasonably achievable. Dictated by Kevin Pimentel MD @ 08/04/2024 5:36:15 PM (Electronically Signed) Narrative 08/04/2024 8:26 AM CDT For Patients: As a result of the Cures Act, medical imaging exams and procedure reports are released immediately into your electronic medical record. You may view this report before your referring provider. If you have questions, please contact your health care provider. Indication: Stenosis of the right carotid artery, suspected stroke Technique: Volumetric multidetector CT images of the head were obtained without the administration of low osmolar intravenous contrast. Comparison: MRI brain without contrast July 06, 2024 Findings: There is no intra-axial or extra-axial fluid collection. There is no mass effect or midline shift. There is age-related cortical atrophy with mild sulcal widening and ex vacuo dilatation of the lateral ventricles. Old lacunar changes seen of the left basal ganglia. There are chronic small vessel disease changes in the subcortical and periventricular white matter without lost payne-white differentiation. The orbits and their contents are grossly within normal limits. The bony calvarium is grossly intact. The paranasal sinuses are clear. There is fluid within the pbucc-wwjwsnt-zchr-left mastoid air cells and right middle ear consistent with sequela of otomastoiditis. Impression: Stable age-related and chronic small-vessel disease changes of the brain without acute intracranial abnormality. Please note that all CT scans at this facility use dose modulation, iterative reconstruction, and/or weight-based dosing when appropriate to reduce radiation dose to as low as reasonably achievable. Dictated by Eze Trujillo MD @ 08/04/2024 8:26:10 AM (Electronically Signed) Procedure Note Eze Trujillo MD / Kevin Pimentel MD - 08/04/2024 For Patients: As a result of the Cures Act, medical imagingexams and procedure reports are released immediately into your electronicmedical record. You may view this report before your referring provider.If you have questions, please contact your health care provider. Indication: Stenosis of the right carotid artery, suspected stroke Technique: Volumetric multidetector CT images of the head were obtained without theadministration of low osmolar intravenous contrast. Comparison: MRI brain without contrast July 06, 2024 Findings: There is no intra-axial or extra-axial fluid collection. There is no mass effect or midline shift. There is age-related cortical atrophy with mild sulcal widening and exvacuo dilatation of the lateral ventricles. Old lacunar changes seen of the left basal ganglia. There are chronicsmall vessel disease changes in the subcortical and periventricular whitematter without lost payne-white differentiation. The orbits and their contents are grossly within normal limits. The bony calvarium is grossly intact. The paranasal sinuses are clear. There is fluid within the uevoc-xiqjgqy-dhld-left mastoid air cells andright middle ear consistent with sequela of otomastoiditis. Impression: Stable age-related and chronic small-vessel disease changes of the brainwithout acute intracranial abnormality. Please note that all CT scans at this facility use dose modulation,iterative reconstruction, and/or weight-based dosing when appropriate toreduce radiation dose to as low as reasonably achievable. 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 Procedure: 2D w/ Bubbles, 2D w/ Contrast, Color Doppler and Spectral Doppler. Indication for study: Cerebrovascular accident (CVA), unspecified mechanism Cardiac Rhythm: Regular.Study quality: Fair. Final Impressions: 1. Normal left ventricular size, normal wall thickness, normal global systolic function, calculated EF of 64 %. 2. Normal cardiac valves 3. Negative bubble study for the detection of intra-cardiac shunt. 4. Echo contrast was administered to enhance visualization of all left ventricular segments. Chamber Sizes and Function Normal left ventricular size, normal wall thickness, normal global systolic function, calculated EF of 64 %. No resting regional wall motion abnormality visualized. Left atrial size is normal. Left atrial pressure is normal. Right ventricular cavity size is normal, global systolic RV function is normal. RV wall thickness is normal. The right atrium is normal. Right atrial volume index is 22 ml/m . Right atrial area is 17 cm . The pulmonary artery is of normal size and origin. The sinus of Valsalva is normal sized. The ascending aorta is normal sized. Valves, RV Pressures and Diastolic Function The aortic valve is normal in structure and trileaflet, no stenosis and no regurgitation. The mitral valve is normal in structure, trace mitral regurgitation. Normal diastolic function. The tricuspid valve is normal in structure, trace tricuspid regurgitation. The pulmonic valve is normal. No pulmonary regurgitation. Masses, Effusion, Shunts There is no pericardial effusion. The inferior vena cava is normal sized, respiratory size variation greater than 50%. No left to right shunting was detected by limited color flow Doppler interrogation of the interatrial septum. MEASUREMENTS AND CALCULATIONS 2-D Measurements and LV Function: LVID (d) 5.4 cm Planimetered EF 64 % LVID (s) 3.4 cm LV FS% (2D) 36 % IVS (d) 0.7 cm LVOT diameter 2.3 cm LVPW (d) 0.8 cm HR 63 bpm Ao Sinus 3.8 cm LA Vol index 29 ml/m2 Ao Sinus ULN 4.2 cm * RA Vol index 22 ml/m2 Asc Ao 3.5 cm RA area 17 cm Asc Ao ULN 4.3 cm * RV Basal Diam 3.7 cm LA 4.6 cm * Input BSA outside of range, reported values correspond to BSA = 2.1 Diastology: Mitral Tissue Doppler E Peak 0.8 m/s e', Septum 0.07 m/s A Peak 0.6 m/s e', Lateral 0.11 m/s E/A 1.5 E/e' Average 9.42 DT 144 msec Aortic Valve: Vmax 1.4 m/s JESSICA (V) 4.15 cm VTI 0.32 m JESSICA (I) 4.05 cm LVOT V max 1.4 m/s Max PG 7 mmHg LVOT VTI 0.31 m Mean PG 5 mmHg SV 130 ml Dim Index 0.98 SV index 60 ml/m CO 8.2 l/min CI 3.8 l/min/m Mitral Valve: MVA 5.3 cm MV P 1/2 42 msec Tricuspid Valve and estimated PA pressures: TAPSE 2.1 cm Contrast documentation: 2 cc ml diluted Definity, lot #[id number], [facility]# [id number] was administered peripherally to enhance visualization of all left ventricular segments. . This study was interpreted by an [facility] accredited facility. Final Procedure Note Mitchel Partida MD - 07/27/2024 ECHOCARDIOGRAM MITCHEL BERNABE : 1955 68 years Study Date: 07/27/2024 12:53:30 PM Gender: M BP: 110/60 mmHg Height: 168.00 cm BSA: 2.16 m Weight: 108.00 kg Tech: KATHERYN Referring MD: CINTHIA MASON Site: [facility] Reading Location: Mobile-OP Patient Location: Outpatient. Procedure: 2D w/ Bubbles, 2D w/ Contrast, Color Doppler and SpectralDoppler. Indication for study: Cerebrovascular accident (CVA), unspecifiedmechanism Cardiac Rhythm: Regular.Study quality: Fair. Final Impressions: 1. Normal left ventricular size, normal wall thickness, normal globalsystolic function, calculated EF of 64 %. 2. Normal cardiac valves 3. Negative bubble study for the detection of intra-cardiac shunt. 4. Echo contrast was administered to enhance visualization of all leftventricular segments. Chamber Sizes and Function Normal left ventricular size, normal wall thickness, normal globalsystolic function, calculated EF of 64 %. No resting regional wall motionabnormality visualized. Left atrial size is normal. Left atrial pressureis normal. Right ventricular cavity size is normal, global systolic RVfunction is normal. RV wall thickness is normal. The right atrium isnormal. Right atrial volume index is 22 ml/m . Right atrial area is 17cm . The pulmonary artery is of normal size and origin. The sinus ofValsalva is normal sized. The ascending aorta is normal sized. Valves, RV Pressures and Diastolic Function The aortic valve is normal in structure and trileaflet, no stenosis and noregurgitation. The mitral valve is normal in structure, trace mitralregurgitation. Normal diastolic function. The tricuspid valve is normal instructure, trace tricuspid regurgitation. The pulmonic valve is normal. Nopulmonary regurgitation. Masses, Effusion, Shunts There is no pericardial effusion. The inferior vena cava is normal sized,respiratory size variation greater than 50%. No left to right shunting wasdetected by limited color flow Doppler interrogation of the interatrialseptum. MEASUREMENTS AND CALCULATIONS 2-D Measurements and LV Function: LVID (d) 5.4 cm Planimetered EF 64% LVID (s) 3.4 cm LV FS% (2D) 36% IVS (d) 0.7 cm LVOT diameter2.3 cm LVPW (d) 0.8 cm HR 63bpm Ao Sinus 3.8 cm LA Vol index 29ml/m2 Ao Sinus ULN 4.2 cm * RA Vol index 22ml/m2 Asc Ao 3.5 cm RA area 17cm Asc Ao ULN 4.3 cm * RV Basal Diam3.7 cm LA 4.6 cm * Input BSA outside of range, reported values correspond to BSA = 2.1 Diastology: Mitral Tissue Doppler E Peak 0.8 m/s e', Septum 0.07 m/s A Peak 0.6 m/s e', Lateral 0.11 m/s E/A 1.5 E/e' Average 9.42 DT 144 msec Aortic Valve: Vmax 1.4 m/s JESSICA (V) 4.15 cm VTI 0.32 m JESSICA (I) 4.05 cm LVOT V max 1.4 m/s Max PG 7 mmHg LVOT VTI 0.31 m Mean PG 5 mmHg SV 130 ml Dim Index 0.98 SV index 60 ml/m CO 8.2 l/min CI 3.8 l/min/m Mitral Valve: MVA 5.3 cm MV P 1/2 42 msec Tricuspid Valve and estimated PA pressures: TAPSE 2.1 cm Contrast documentation: 2 cc ml diluted Definity, lot #[id number], [facility]#[id number] was administered peripherally to enhance visualization of allleft ventricular segments. . This study was interpreted by an [facility] accredited facility. Final us Cinthia Mason MD ECHO ORD Final Result * EXTENDED HOLTER (07/07/2024) 07/07/2024 Narrative Eduardo Michaels MD - 08/06/2024 12:00 AM CDT Agree with Findings. Please see scan document for full report. Signed By Eduardo Michaels MD Procedure Note Eduardo Michaels MD - 08/06/2024 Agree with Findings. Please see scan document for full report. Signed By Eduardo Michaels MD Cinthia Mason MD CARDIAC SERVICES ORD F inal Result * US CAROTID DUPLEX BILATERAL (07/06/2024 10:52 AM CDT) Anatomical Region Laterality Modality CAROTID, NECK Ultrasound 07/06/2024 1:30 PM CDT Impressions 07/06/2024 1:30 PM CDT 50-69 percent stenosis of the left mid ICA. Less than 50 percent stenosis of the right ICA. Dictated by Mitchel Crews MD @ 07/06/2024 1:30:32 PM (Electronically Signed) Narrative 07/06/2024 1:30 PM CDT For Patients: As a result of the Century Cures Act, medical imaging exams and procedure reports are released immediately into your electronic medical record. You may view this report before your referring provider. If you have questions, please contact your health care provider. CLINICAL HISTORY: Amaurosis fugax of right eye TECHNIQUE: The carotid circulations and the vertebral arteries in the neck were examined with payne-scale ultrasound, color-flow and Doppler spectral analysis. Degrees of stenosis were determined using SRU 2002 Consensus Panel Criteria. FINDINGS: Sonographic images demonstrate bilateral atherosclerotic plaque formation without suspicious soft tissue mass. There was antegrade blood flow demonstrated within the vertebral arteries and the subclavian arteries demonstrated a normal triphasic waveform. The spectral Doppler tracings of the common carotid, internal and external carotid arteries demonstrate no abnormal turbulence or spectral broadening. There was mild elevation of peak systolic blood flow within the mid left ICA measuring 141 cm/second which would indicate a hemodynamically-significant stenosis by SRU criteria. The ICA/CCA peak systolic velocity ratio measures 1.04 on the right and 1.52 on the left. Procedure Note Mitchel Crews MD - 07/06/2024 For Patients: As a result of the Cures Act, medical imagingexams and procedure reports are released immediately into your electronicmedical record. You may view this report before your referring provider.If you have questions, please contact your health care provider. CLINICAL HISTORY: Amaurosis fugax of right eye TECHNIQUE: The carotid circulations and the vertebral arteries in the neck wereexamined with payne-scale ultrasound, color-flow and Doppler spectralanalysis. Degrees of stenosis were determined using SRU 2002 ConsensusPanel Criteria. FINDINGS: Sonographic images demonstrate bilateral atherosclerotic plaque formationwithout suspicious soft tissue mass. There was antegrade blood flowdemonstrated within the vertebral arteries and the subclavian arteriesdemonstrated a normal triphasic waveform. The spectral Doppler tracingsof the common carotid, internal and external carotid arteries demonstrateno abnormal turbulence or spectral broadening. There was mild elevationof peak systolic blood flow within the mid left ICA measuring 141cm/second which would indicate a hemodynamically-significant stenosis bySRU criteria. The ICA/CCA peak systolic velocity ratio measures 1.04 onthe right and 1.52 on the left. IMPRESSION: 50-69 percent stenosis of the left mid ICA. Less than 50 percent stenosis of the right ICA. Dictated by Mitchel Crews MD @ 07/06/2024 1:30:32 PM (Electronically Signed) us Cinthia Mason MD Final Result * TSH WITH REFLEX (06/24/2024 3:46 PM CDT) TSH W/REFLEX TO FT4 3.34 0.40 - 4.50 mIU/L [facility] Blood BLOOD SPECIMEN / Unknown 06/24/2024 3:46 PM CDT 06/24/2024 3:46 PM CDT Cinthia Mason MD CHEMISTRY Final Result [employer] [facility] [address] [place] [address], [place] [phone] [employer] [address] [place] [address] * (ABNORMAL) LIPID PANEL W REFLEX MEASURED LDL (06/24/2024 3:46 PM CDT) CHOLESTEROL, TOTAL 207(H) <200 mg/dL [employer] HDL CHOLESTEROL 35(L) > OR = 40 mg/dL [employer] TRIGLYCERIDES 299(H) <150 mg/dL [employer] Comment: If a non-fasting specimen was collected, consider repeat triglyceride testing on a fasting specimen if clinically indicated. Ant et al. J. of Clin. Lipidol. 2015;9:129-169. LDL-CHOLESTEROL 129(H) mg/dL (calc) [employer] Comment: Reference range: <100 Desirable range <100 mg/dL for primary prevention; <70 mg/dL for patients with CHD or diabetic patients with > or = 2 CHD risk factors. LDL-C is now calculated using the Lavelle-Ron calculation, which is a validated novel method providing better accuracy than the Friedewald equation in the estimation of LDL-C. Lavelle SS et al. SEE. 2013;310(19): 8397-8575 (http://education.Virtual Computer.TagMii/faq/HND877) CHOL/HDLC RATIO 5.9(H) <5.0 (calc) [employer] NON HDL CHOLESTEROL 172(H) <130 mg/dL (calc) [employer] Comment: For patients with diabetes plus 1 major ASCVD risk factor, treating to a non-HDL-C goal of <100 mg/dL (LDL-C of <70 mg/dL) is considered a therapeutic option. Blood BLOOD SPECIMEN / Unknown 06/24/2024 3:46 PM CDT 06/24/2024 3:46 PM CDT Cinthia Mason MD CHEMISTRY Final Result Performing Organization Address [facility] Co de Phone Number [employer] [facility] [address] [place] [address], [place] [phone] [facility] [address] [place] [id number] * VITAMIN B12 (06/24/2024 3:46 PM CDT) Pathologist [facility] VITAMIN B12 384 200 - 1,100 pg/mL [facility] Comment: Please Note: Although the reference range for vitamin B12 is 200-1100 pg/mL, it has been reported that between 5 and 10% of patients with values between 200 and 400 pg/mL may experience neuropsychiatric and hematologic abnormalities due to occult B12 deficiency; less than 1% of patients with values above 400 pg/mL will have symptoms. Blood BLOOD SPECIMEN / Unknown 06/24/2024 3:46 PM CDT 06/24/2024 3:46 PM CDT Cinthia Mason MD CHEMISTRY Final Result Performing Organization Address [facility] Co de Phone Number [employer] [address] [address], [place] [phone] [facility] [address] * HEPATIC FUNCTION PANEL (06/24/2024 3:46 PM CDT) PROTEIN, TOTAL 7.3 6.1 - 8.1 g/dL [facility] ALBUMIN 4.2 3.6 - 5.1 g/dL [facility] GLOBULIN 3.1 1.9 - 3.7 g/dL (calc) [facility] ALBUMIN/GLOBULIN RATIO 1.4 1.0 - 2.5 (calc) [facility] BILIRUBIN, TOTAL 0.6 0.2 - 1.2 mg/dL [facility] BILIRUBIN, DIRECT 0.1 < OR = 0.2 mg/dL [facility] BILIRUBIN, INDIRECT 0.5 0.2 - 1.2 mg/dL (calc) [facility] ALKALINE PHOSPHATASE 79 35 - 144 U/L [facility] AST 14 10 - 35 U/L [facility] ALT 11 9 - 46 U/L [facility] Blood BLOOD SPECIMEN / Unknown 06/24/2024 3:46 PM CDT 06/24/2024 3:46 PM CDT Cinthia Mason MD CHEMISTRY Final Result Performing Organization Address [facility] Co de Phone Number [employer] [facility] [address] [place] [address], [place] [phone] [facility] [address] [place] [address] * OCCULT BLOOD IFOBT STOOL (07/24/2023 3:04 PM CDT) [facility] Signature STOOL BLOOD ,IFOBT Negative Negative 08/02/2023 8:49 AM CDT [facility] Stool STOOL SPECIMEN / Unknown Non-Blood / Unknown 07/24/2023 3:04 PM CDT 08/01/2023 3:05 PM CDT us Cinthia Mason MD LABORATORY Final Result Performing Organization Address City/[facility]/ZIP Co de Phone Number [facility] [address] [place] [address], [place] [phone] * US AORTA (02/15/2020 8:31 AM HOUSE REGISTRY RN) Anatomical Region Laterality Modality Abdomen, AORTA Ultrasound 02/15/2020 10:2 5 AM HOUSE REGISTRY RN Narrative 02/15/2020 10:25 AM HOUSE REGISTRY RN INDICATION: Screen for abdominal aortic aneurysm COMPARISON: none TECHNIQUE: Payne scale and color Doppler images were acquired of the abdominal aorta and iliac arteries. FINDINGS: Sonographic imaging demonstrates a normal appearance of the abdominal aorta. There is no evidence of aneurysm formation or aortic dissection. Proximally, the aorta measures 2.4 x 2.4 cm in diameter, mid 1.6 x 2.2 cm, and distally tapers to a measurement of 1.6 x 1.6 cm. The common iliac arteries are patent and measure 1.2 x 1.5 cm on the right and 1.1 x 1.4 cm in diameter on the left. There are no suspicious periaortic masses. IMPRESSION: No evidence of abdominal aortic aneurysm. Dictated by Mitchel Crews MD @ Feb 15 2020 10:25AM (Electronically Signed) Procedure Note Mitchel Crews MD - 02/15/2020 INDICATION: Screen for abdominal aortic aneurysm COMPARISON: none TECHNIQUE: Payne scale and color Doppler images were acquired of the abdominal aortaand iliac arteries. FINDINGS: Sonographic imaging demonstrates a normal appearance of the abdominalaorta. There is no evidence of aneurysm formation or aortic dissection.Proximally, the aorta measures 2.4 x 2.4 cm in diameter, mid 1.6 x 2.2 cm,and distally tapers to a measurement of 1.6 x 1.6 cm. The common iliacarteries are patent and measure 1.2 x 1.5 cm on the right and 1.1 x 1.4 cmin diameter on the left. There are no suspicious periaortic masses. IMPRESSION: No evidence of abdominal aortic aneurysm. Dictated by Mitchel Crews MD @ Feb 15 2020 10:25AM (Electronically Signed) us Mitchel Nam MD US Final Resu lt * SCAN-COLONOSCOPY (02/04/2017 12:00 AM HOUSE REGISTRY RN) us Scanner OTHER Final Result * ANTI HCV (11/08/2016 9:21 AM CDT) HEPATITIS C ANTIBODY Non-Reacti ve Non-Reacti ve 11/08/2016 4:37 PM CDT [facility] Blood BLOOD SPECIMEN / Unknown Venipuncture / Unknown 11/08/2016 9:21 AM CDT 11/08/2016 9:21 AM CDT Narrative [facility] - 11/08/2016 4:37 PM CDT Antibodies to HCV not detected; does not exclude the possibility of exposure to HCV. Mitchel Nam MD SEND OUTS Final Resu lt [facility] 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
--- OUTSIDE RECORDS SUMMARY | 2024-09-17 08:49 | XMS_ITS | Clinical Summary ---
Author Organization [facility] Address [address] [place] [address] [place] [address] Care Team Providers Care Wagon Drill Operator Name Role Phone Casimiro Mason MD Primary Care Provider Allergies No known active allergies Medications amLODIPine [...] disease) 05/2009 HTN (hypertension) 05/03/2009 Hyperlipidemia 05/03/2009 Encounters Date Type Department Care Team Description 08/18/2024 Results Follow-Up [facility] [place] [address] [place] [address] [address] [place] [address] Azul Fernandes MONITOR COMPLETE 7 TO 15 DAYS 07/08/2024 1:00 PM CDT Office Visit [facility] Neurology [address] [place] [address] Yvette Rios, WELDER FITTER HELPER, KUMAR Cerebrovascular accident (CVA), unspecified mechanism (HCC) (Primary Dx); B12 deficiency; Stenosis of right carotid artery; Vitamin D deficiency from Last 3 Months Immunizations Immunization Administration Dates Next Due Influenza [...] (Moderna) 12+ Yrs M onovalent COVID Vaccine (predictive maintenance technician) 07/06/2020,06/08/2020 Td 08/09/2004 Tdap 01/18/2014,05/02/2002 Zoster Live [...] 07/08/2024 1:25 PM CDT Plan of Treatment Health Maintenance Due Date Last Done Comments Colonoscopy 1955 Eye Exam 1955 Depression Assessment (PHQ-2) 07/29/1955 Spirometry 01/27/1959 Yearly Review of HCD 2004 RSV Vaccines (1 - Risk 60-74 years 1-dose series) 2014 Zoster Vaccine (2 of 3) 02/27/2017 01/02/2017 Adult Tetanus Booster 01/19/2024 01/18/2014 , 08/09/2004, 05/02/2002 COVID-19 Vaccine ( season) 2024 01/03/2024, 07/09/2023, 01/19/2023, Additional history exists Medicare Wellness Visit 07/08/2024 07/09/19 24, 01/11/2022, 02/11/2020 HgbA1C 01/07/2025 07/08/2024 Thyroid-Stimulating Hormone (TSH) 06/24/2025 06/24/2024 Creatinine 08/13/2025 08/13/2024, 07/30, 06/24/2024, Additional history exists Hepatitis C Screening Completed 11/08/2016 AAA Ultrasound Screening Completed 02/15/2020 Pneumococcal 50+ Years Completed 4, 11/26/2019, 02/20/2012, Additional history exists Influenza Vaccine Completed 01/03/2024, , 12/18/2021, Additional history exists Meningococcal B Vaccine Aged Out No l onger eligible based on patient's age to complete [...] 15 DAYS (08/17/2024 11:42 AM CDT) EKG I [place] Comment: [facility] Test Date: 2024-08-17 Pat Name: MITCHEL BERNABE Department: [facility] Room: Gender: M Cutter Operator Tile: : 1955 Requested By: YVETTE RIOS MD Order Number: [id number] Papa MD: Danial Wu MD Interpretive Statements ZIO DOS: 07/27/24 TO 08/10/24 DURATION: 13 DAYS 22 HOURS PCP: CASIMIRO MASON MD ORDERING: YVETTE RIOS NP PRIMARY SMASH PIECER: NONE INDICATION: CVA RESULTS: Patient had a [...] 2. No significant cardiac arrhythmias were seen. [facility] [place] Electronically Signed On 08-18-2024 16:35:47 CDT by Danial Wu MD 08/17/2024 11:4 2 AM CDT us Yvette Rios APRN, CNP CARDIO ORDERABLE Final Result Performing Organization Address City/State/[facility] Co de Phone Number Byron RAI [address] [place] [address] * METHYLMALONIC ACID, SERUM ([facility]) (07/08/2024 12:49 PM CDT) [facility] Methylmalonic Acid ([facility]) 300 0 - 378 nmol/L [facility] 2 Blood 07/08/2024 12:4 9 PM CDT 07/07/2024 11:00 PM CDT Narrative [facility] - 07/13/2024 8:08 AM CDT Test(s) [id number]-[id number] Acid, Serum was developed and its performance characteristics determined by [facility]. It has not been cleared or approved by the Food and Drug Administration. Performed at: 02 - [address] [place], [place] [id number] Template Reproduction Technician: Robyn Groves MD, Phone: [phone] Yvettekatiana Rios APRN, RAW PRODUCTS DIRECTOR [facility] ORDERABLES Rahle l Result Performing Organization Address [facility] de Phone Number [facility] 2 * (ABNORMAL) HOMOCYST(E)INE ([facility]) (07/08/2024 12:49 PM CDT) Homocyst(e)ine ([facility]) 27.5(H) 0.0 - 17.2 umol/L [facility] 1 Blood 07/08/2024 12:4 9 PM CDT 07/07/2024 11:00 PM CDT Narrative [facility] 1 - 07/13/2024 8:08 AM CDT Performed at: - [facility] [address] [id number] Template Reproduction Technician: Avinash Haley MD, Phone: [phone] Yvette Rios APRN, RAW PRODUCTS DIRECTOR [facility] ORDERABLES Rahel l Result Performing Organization Address [facility] de Phone Number [facility] * (ABNORMAL) VITAMIN D, 25-HYDROXY ([facility]) (07/08/2024 12:49 PM CDT) Vitamin D,25 Hydroxy ([facility]) 8.4(L) 30.0 - 100.0 ng/mL [facility] 1 Comment: Vitamin D deficiency has been defined by the [place] of Medicine and an Endocrine Society practice guideline as a level of serum 25-OH vitamin D less than 20 ng/mL (1,2). The Endocrine Society went on to further define vitamin D insufficiency as a level between 21 and 29 ng/mL (2). 1. IOM ([place] of Medicine). 2010. Dietary reference intakes for calcium and D. [place]: The National Academies Press. 2. Delia MF, [place]win [place], Rain BENITES, et al. Evaluation, treatment, and prevention of vitamin D deficiency: an Endocrine Society clinical practice guideline. JCEM. 2010; 96(7):1911-30. Blood 07/08/2024 12:4 9 PM CDT 07/07/2024 11:00 PM CDT Narrative [facility] 1 - 07/13/2024 8:08 AM CDT Performed at: [facility] [address] [id number] Template Reproduction Technician: Avinash Haley MD, Phone: [phone] Yvettekatiana Rios APRN, RAW PRODUCTS DIRECTOR [facility] ORDERABLES Rahel l Result Performing Organization Address [facility] Co de Phone Number [facility] * (ABNORMAL) HEMOGLOBIN A1C ([facility]) (07/08/2024 12:49 PM CDT) HgbA1c ([facility]) 5.9(H) 4.8 - 5.6 % [facility] 1 Comment: Prediabetes: 5.7 - 6.4 Diabetes: >6.4 Glycemic control for adults with diabetes: <7.0 Blood 07/08/2024 12:4 9 PM CDT 07/07/2024 11:00 PM CDT Narrative [facility] 1 - 07/13/2024 8:08 AM CDT Performed at: [facility] [address] [id number] Template Reproduction Technician: Avinash Haley MD, Phone: [phone] Yvette Rios APRN, RAW PRODUCTS DIRECTOR [facility] ORDERABLES Rahel l Result [facility] 1 from [place] [address] [place] [id number] [facility] MEDICARE ADVANTAGE * Guarantor: MITCHEL BERNABE Account Type Relation to Patient Date of Phone Billing Address Personal/Family Care Teams Wagon Drill Operator Relationship Specialty Start Date End Date Casimiro Mason MD [address] [place] [address] PCP - General Family Medicine 07/08/24
--- OUTSIDE RECORDS SUMMARY | 2024-09-17 08:49 | XMS_ITS | Encounter Summary ---
Author Organization [facility] Address [address] [place] [address] [place] [address] Care Team Providers Care Raw Shellfish Preparer Name Role Phone Casimiro Mason MD Primary Care Provider Encounter Details Date Type Department Care Team (Late st Contact Info) Description 08/18/2024 Results Follow-Up [facility] [place] - [address] [place] [address] Azul Fernandes MONITOR COMPLETE 7 TO 15 DAYS Social History Tobacco Use Types Packs/Day Years Used Date Smoking Tobacco: Former Cigarettes Smokeless Tobacco: Never Alcohol Use Standard Drinks/Week Comments Not Currently 0 (1 standard drink = 0.6 oz pur e alcohol) Sex and Gender Information Value Date Recorded Sex Assigned at Not on file Legal Sex Male 9:21 AM CDT Gender Identity Not on file Sexual Orientation Not on file documented as of this encounter Plan of Treatment Not on file documented as of this encounter Visit Diagnoses Not on filedocumented in this encounter Care Teams Raw Shellfish Preparer Relationship Specialty Start Date End Date Casimiro Mason MD [address] [place] [address] PCP - General Family Medicine 07/08/24 documented as of this encounter
[2024-09-17 09:14] VITALS: BP 104/58; PULSE 83; RESP 28; TEMP 36.1; O2SAT 83; BMI 32.9
[2024-09-17 09:50] LABS: Potassium* 4.5 mmol/L (3.6-5.1)
--- NOTE | 2024-09-17 09:51 | ED.GENADULT ---
HPI - General Adult General Chief complaint: Unspecified Complaint, Adult Stated complaint: sent from clinic- high potassium Time Seen by Provider: 09/17/24 09:29 Source: patient Mode of arrival: ambulatory Limitations: no limitations History of Present Illness HPI narrative: 69-year-old male presenting today for a lab recheck. Patient states that he had a phone call from his PCP that his potassium was too high at 5.9. Patient had labs drawn yesterday for a regular checkup. He has no complaints today. Is in his usual state of health. 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 Patient takes that he takes 10 mEq of potassium daily. His Lasix was recently increased to 60 mg daily. Related Data Home Medications ?Medication ?Instructions ?Recorded ?Confirmed amlodipine 10 mg tablet 10 mg PO DAILY 07/12/22 09/17/24 lisinopril 20 mg tablet 20 mg PO DAILY 07/12/22 09/25/22 potassium chloride 10 mEq 10 meq PO DAILY 07/12/22 09/17/24 tablet,extended release pravastatin 40 mg tablet 40 mg PO DAILY 07/12/22 09/17/24 aspirin 81 mg tablet,delayed 81 mg PO DAILY 09/25/22 09/25/22 release (Adult Aspirin Regimen) furosemide 40 mg tablet 40 mg PO DAILY 09/25/22 09/17/24 indomethacin 50 mg capsule 50 mg PO 3XD PRN gout pain 09/25/22 09/25/22 clopidogrel 75 mg tablet 75 mg PO QAM 09/17/24 09/17/24 metoprolol succinate 25 mg 25 mg PO BID 09/17/24 09/17/24 tablet,extended release 24 hr prednisone 10 mg tablet PO 09/17/24 rosuvastatin 20 mg tablet 20 mg PO QPM 09/17/24 09/17/24 Previous Rx's ?Medication ?Instructions ?Recorded amoxicillin 500 mg-potassium 1 tab PO TID 7 days #21 tabs 09/25/22 clavulanate 125 mg tablet (Augmentin) azithromycin 250 mg tablet 250 mg PO DAILY 4 days #4 tabs 09/25/22 azithromycin 250 mg tablet 250 mg PO DAILY 6 days #6 tabs 09/25/22 prednisone 20 mg tablet 40 mg (2 x 20 mg) PO DAILY 4 days 09/25/22 #8 tabs Allergies Allergy/AdvReac Type Severity Reaction Status Date / Time No Known Drug Allergies Allergy Verified 09/17/24 09:14 Review of Systems Status of ROS: Reports: 10 or more systems reviewed and unremarkable except as noted in History and below [facility] Social History Smoking Status: Former smoker Do you use any of these nicotine containing products: None Second hand tobacco smoke exposure: No How often do you have a drink containing alcohol: 2-3 times a week How many standard drinks containing alcohol do you have on a typical day: 3 or 4 How often do you have six or more drinks on one occasion: Less than monthly AUDIT-C Alcohol total score: 5 Non-prescribed substance use: denies use service: No Exam Narrative: Exam Narrative: Overweight, well-developed patient in no acute distress. Alert and oriented. Answers questions appropriately. Mood and affect are appropriate. Thoughts are goal oriented and rational. No tangential or magical thinking noted. Patient speaks in full sentences without needing to catch his breath. Saturating 90% on 3 L nasal cannula. HEENT: Normocephalic atraumatic. Pupils are equally round reactive to light. Extraocular muscles are intact. Conjunctivae are moist without any icterus noted. Moist mucous membranes. Skin: Well perfused without any obvious rashes. Const: Vital Signs, click to edit/add: Vital Signs - 24 hr 09/17/24 09:14 Temperature 97 F L Pulse Rate [Pulse Oximeter] 83 Respiratory Rate 28 H Blood Pressure [Ri ght Upper Arm] 104/58 L Pulse Oximetry 83 L Oxygen Delivery Me thod Room Air Course Course ED Course: Potassium within normal limits of 4.5. Vital Signs Vital signs: Initial Vital Signs Temperature 97 F L 09/17/24 09:14 Temperature Source Temporal Artery Scan 09/17/24 09:14 Pulse Rate 83 09/17/24 09:14 Respiratory Rate 28 H 09/17/24 09:14 Blood Pressure 104/58 L 09/17/24 09:14 Blood Pressure Mean 73 09/17/24 09:14 Pulse Oximetry 83 L 09/17/24 09:14 Oxygen Delivery Method Room Air 09/17/24 09:14 Vital Signs Temperature 97 F L 09/17/24 09:14 Pulse Rate 83 09/17/24 09:14 Respiratory Rate 28 H 09/17/24 09:14 Blood Pressure 104/58 L 09/17/24 09:14 Pulse Oximetry 83 L 09/17/24 09:14 Oxygen Delivery Method Room Air 09/17/24 09:14 Temperature 97 F L 09/17/24 09:14 Pulse Rate 83 09/17/24 09:14 Respiratory Rate 28 H 09/17/24 09:14 Blood Pressure 104/58 L 09/17/24 09:14 Pulse Oximetry 83 L 09/17/24 09:14 Oxygen Delivery Method Room Air 09/17/24 09:14 Medical Decision Making MDM Narrative Medical decision making narrative: 69-year-old male with an elevated potassium in the clinic, normal today. Patient discharged home. Lab Data Lab results reviewed: Yes I reviewed the patient's lab results Labs: Lab Results 09/17/24 Range/Units 09:28 Potassium 4.5 (3.6-5.1) mmol/L Discharge Plan Discharge Clinical Impression: Hyperkalemia Patient Disposition: Home, Self-Care Condition: Stable Additional Instructions: Your potassium was normal today at 4.5. Follow-up as needed with your primary care provider. Prescriptions: No Action amlodipine 10 mg tablet 10 mg PO DAILY potassium chloride 10 mEq tablet extended release 10 meq PO DAILY lisinopril 20 mg tablet 20 mg PO DAILY pravastatin 40 mg tablet 40 mg PO DAILY furosemide 40 mg tablet 40 mg PO DAILY indomethacin 50 mg capsule 50 mg PO 3XD PRN (Reason: gout pain) aspirin [Adult Aspirin Regimen] 81 mg tablet,delayed release (DR/EC) 81 mg PO DAILY amoxicillin-pot clavulanate [Augmentin] 500-125 mg tablet 1 tab PO TID 7 Days Qty: 21 0RF prednisone 20 mg tablet 40 mg PO DAILY 4 Days Qty: 8 0RF azithromycin 250 mg tablet 250 mg PO DAILY 6 Days Qty: 6 0RF Rx Instructions: start on day 2 of therapy azithromycin 250 mg tablet 250 mg PO DAILY 4 Days Qty: 4 0RF Rx Instructions: start on day 2 of therapy prednisone 10 mg tablet PO clopidogrel 75 mg tablet 75 mg PO QAM metoprolol succinate 25 mg tablet extended release 24 hr 25 mg PO BID rosuvastatin 20 mg tablet 20 mg PO QPM Follow Up/Referrals: Casimiro Mason MD [Primary Care Provider, Family Practice] Stand Alone Forms: MyHealth Info Instructions
[2024-09-17 10:02] VITALS: PULSE 51; RESP 16; O2SAT 92
[2024-09-17 10:14] VITALS: O2SAT 92
== END 2024-09-17 10:14 | disposition home or self-care (01) ==
PROVIDERS: Emergency Provider Family Medicine; PCP Family Medicine
DX: E87.5 Hyperkalemia (principal)
CPT/HCPCS: 36415; 84132; 99283

== ENCOUNTER 2024-10-10 09:54 | Emergency (ER) | payer MEDICARE, SELFPAY ==
[2024-10-10] VITALS (26 sets, daily range): BP systolic 105–113; BP diastolic 53–78; PULSE 71–90; RESP 20–41; TEMP 36.6; O2SAT 70–94; BMI 33.5
--- OUTSIDE RECORDS SUMMARY | 2024-10-10 09:57 | XMS_ITS | Clinical Summary ---
Author Organization [facility] Address [address] [place] [id number] Care Team Providers Care Dock Builder Name Role Phone Casiimro Mason MD Primary Care Provider [facility] [place] Unavailable Allergies No known active allergies Medications [...] mg) by mouth once daily. 025 Active rosuvastatin 20 mg tabletIndications: Coronary artery disease involving catawba coronary artery of catawba heart, unspecified whether angina present,HTN (hypertension),Obe sity, [...] Use for 3-5 days PRN gout Active metoprolol succinate 25 mg Sustained-Release tabletIndications: Atrial fibrillation, unspecified type (HC) Take 1 Tablet (25 mg) by mouth two times daily. 180 Tablet 1 09/11/19 1:31 PM CDT 025 Active oxygen-air delivery [...] 09/13/19 25 12:57 PM CDT 025 Active NebulizerIndicatio ns:Multifocal pneumonia,Chronic respiratory failure with hypoxia (HC),Obstructive emphysema (HC) Nebulizer, disposable neb kit x 4, reuseable neb kit x 1, mask x 1, filters x 1. Frequency of use: daily; Medication: duoneb Length of need: 12 months 1 Each 025 Active fluticasone qan-zhgapmhtdepz-f ilanterol 100-62.5-25 mcg inhalerIndications :Chronic respiratory failure with hypoxia (HC),Obstructive emphysema (HC) Inhale 1 Puff by mouth once daily. 180 Each 3 025 Active oxygen-air delivery systemsIndications :Chronic respiratory failure with hypoxia (HC) Oxygen for home use with bubbler/humidi ty as needed for patient comfort. Oxygen conserving device - pulse Liters per minute: 2 rest 4 liters with ambulation per nasal cannula. Frequency of use: Continuous with portability. Length of need: 99 Months. Continue nightly use as before 1 Each 025 Active amLODIPine 10 mg tabletIndications: Benign essential HTN Take 1 Tablet (10 mg) by mouth once daily. 100 Tablet 3 025 Active fluticasone fpy-gbtxvlglhxhs-a ilanterol 100-62.5-25 mcg inhalerIndications :Chronic respiratory failure with hypoxia (HC) Inhale 1 Puff by mouth once daily. Rinse mouth after use 90 Each 3 025 Active apixaban 5 mg tabletIndications: prevent thromboembolism in chronic atrial fibrillation Take 1 Tablet (5 mg) by mouth two times daily. 60 Tablet 6 025 Active aspirin enteric coated 81 mg tablet Take 1 tablet by mouth once daily with a meal. 0 010 2024 Discontinued(* IP Discontinued) amLODIPine 10 mg tabletIndications: Benign essential HTN TAKE 1 TABLET BY MOUTH ONCE DAILY 100 Tablet 2 025 2024 Discontinued(R eorder (E-cancel not sent)) cholecalciferol (Vitamin D) 1,000 unit capsule Take 2,000 units by mouth once daily. 2024 Discontinued(* Patient states no longer taking) apixaban 5 mg tabletIndications: prevent thromboembolism in chronic atrial fibrillation Take 1 Tablet (5 mg) by mouth two times daily. 60 Tablet 2 09/11/19 25 1:31 PM CDT 025 2024 Discontinued(R eorder (E-cancel not sent)) oxygen-air delivery systemsIndications :Multifocal pneumonia,Chronic respiratory failure with hypoxia (HC) Oxygen for home use with bubbler/humidi ty as needed for patient comfort. Liters per minute: 4 per nasal cannula at rest and nocturnal, 6L oxygen with activity. Frequency of use: Continuous with portability. Length of need: 12 Months. 1 Each 2024 Discontinued fluticasone knk-otfbiqgkodze-c ilanterol 100-62.5-25 mcg inhalerIndications :Chronic respiratory failure with hypoxia (HC),Obstructive emphysema (HC) Inhale 1 Puff by mouth once daily. 60 Each 09/13/19 12:57 PM CDT 2024 Discontinued(R eorder (E-cancel not sent)) guaiFENesin 600 mg Extended-Release tabletIndications: Multifocal pneumonia Take 1 Tablet (600 mg) by mouth two times daily for 7 days. 14 Tablet 09/13/19 12:57 PM CDT 025 2024 Discontinued(* Patient states no longer taking) predniSONE 10 mg tabletIndications: Multifocal pneumonia,Sepsis, due [...] daily for 2 days. 20 Tablet 09/13/19 12:57 PM CDT 025 2024 fluticasone nuf-rlilylthqrok-h ilanterol 100-62.5-25 mcg inhalerIndications :Chronic respiratory failure with hypoxia (HC) Inhale 1 Puff by mouth once daily. Rinse mouth after use 90 Each 3 025 2024 Discontinued(R eorder (E-cancel not sent)) ofloxacin 0.3 % otic solutionIndication s:History of placement of ear tubes Place 5 Drops into left ear two times daily for 7 days. 5 mL 025 2024 Active Problems Problem Noted Date Diagnosed Date [...] Encounters Date Type Department Care Team Description 09/23/2024 Telephone [facility] [address] [facility] [address] [place], [place] [id number] Nola Glass MD Follow Up (Tubes follow up ) 09/22/2024 3:00 PM CDT Office Visit [facility] [address] [place] [address] Nola Glass MD Ear Problem (Mixed hearing loss, bilateral) 09/22/2024 Travel 09/18/2024 2:30 PM CDT Nurse/Clinic Staff Only [facility] [address] [place] [address] Testing (oxygen titration) 09/18/2024 7:30 AM CDT Office Visit [facility] [address] [place] [address] Bertrand Bergman, AuD Hearing Problem 09/18/2024 Telephone [facility] [address] [place] [address] Dmitri Hernandez MD Testing (Oxygen titration) 09/18/2024 Travel 09/17/2024 Telephone [facility] [address] [place] [address] Casimiro Mason MD Results 09/16/2024 2:30 PM CDT Office Visit [facility] [address] [place] [address] Casimiro Mason MD Hospital F/U (Pneumonia, sepsis, a-fib w/ RVR) 09/16/[address] [facility] [address] [place] [address] Davy Lara MD Follow Up 09/15/2024 Travel 09/15/2024 Telephone [facility] [address] [place] [address] Casimiro Mason MD Health Maintenance Update 09/14/2024 Home Care Visit [facility] [address] [place] [phone] Barb Bone, NANCY NOT TAKEN UNDER HOME CARE 09/14/2024 Telephone [facility] [address] [place] [address] Casimiro Mason MD Follow Up 09/14/2024 Patient Outreach [facility] [address] [place] [address] Antonina Mishra, RN Primary RN Care Management; Hospital F/U (LACE 75) 09/13/2024 Transcribe Orders [facility] [address] [place] [address] Heavenly Hernandez MD 09/02/2024 12:03 PM CDT - 09/12/2024 1:50 PM CDT Hospital Encounter [facility] [address] [place] [address] Margo Cantrell, Sarah Nelson, [facility] Hospital[facility], MD Tiesha Terrazas, MD Neeta Morgan, Dyllan Paul, DO Hernandez, Heavenly Lovell MD Multifocal pneumonia (Primary Dx); Sepsis, due to unspecified organism, unspecified whether acute organ dysfunction present (HC); Atrial fibrillation, unspecified type (HC); Cardiovascular symptoms; Chronic respiratory failure with hypoxia (HC); Obstructive emphysema (HC); Atrial fibrillation with RVR (HC) Discharge Disposition: [facility] 09/02/2024 Travel 08/19/2024 Hospital Encounter [facility] [address] [place] [address] Davy Lara MD 08/14/2024 2:00 PM CDT Office Visit [facility] [address] [facility] [address] [place] [address] David Nugent MD Follow Up (PER DR FANG C5 - FOR CAD. /CTA- 08/14/2024.) 08/14/2024 Orders Only [facility] [address] [place] [address] Casimiro Mason MD 1 scan: (1-Ord) NFLD-EKG-08/11/24 08/14/2024 Travel 08/13/2024 10:00 AM CDT Ancillary Procedure [facility] [address] [facility] [address] [place] [address] 08/13/2024 9:20 AM CDT Orders Only [facility] [address] [facility] [address] [place] [address] Lab 08/13/2024 Telephone [facility] [address] [place] [address] Casimiro Mason MD Results 08/13/[address] [facility] [address] [place] [address] Davy Lara MD Results 08/12/2024 Travel 08/11/2024 10:05 AM CDT Office Visit [facility] [address] [place] [address] Casimiro Mason MD Preoperative Exam (DOS: 08/19/2024, RIGHT CAROTID ENDARTERECTOMY W/EEG, Davy Lara MD, ANW) 08/11/2024 Orders Only [address] Lund ROSI [facility] [address] Rk Boudreaux MD <No scans attached> 08/11/2024 Travel 08/05/2024 Telephone [facility] [address] [place] [address] Davy Lara MD Prior Authorization 08/04/2024 7:30 AM CDT Ancillary Procedure [facility] [address] [place] [address] 08/04/2024 Telephone [facility] [address] [place] [address] Davy Lara MD Surgery Scheduled 08/03/2024 3:00 PM CDT Office Visit [facility] [address] [place] [address] Davy Lara MD Consult (Carotid artery 07/06/24 ) 08/03/2024 Travel 07/27/2024 1:00 PM CDT Ancillary Procedure [facility] [address] [place] [address] 07/27/2024 Travel 07/25/2024 Refill [facility] [address] [place] [address] Casimiro Mason MD Refill Request (Amlodipine, Pravastatin) from Last 3 Months Immunizations Immunization Administration [...] on file Legal Sex Male 7:43 AM [employer] Gender Identity Not on file Sexual Orientation [...] Care Team (Late st Contact Info) Description 10/13/2024 8:45 AM CDT Office Visit [facility] [address] [place] [address] Nola Glass MD [address] [place] [address] 10/27/2024 1:30 PM CDT Office Visit [facility] [address] [place] [address] [place] [address] [place] [address] 11/09/2024 1:30 PM CDT Office Visit [facility] [address] [place] [address] Davy Lara MD [address] [place] [address] Health Maintenance Due Date Last Done Comments [...] non-DNA (FIT,FOBT,iFOBT) for age 45-75 07/23/2024 07/24/2023 Influenza Vaccine (#1) 2024 , 01/19/2023, 12/18/2021, Additional history exists BMI (ht and wt on same day) for age 18+ 08/14/2025 08/14/2024, 08/11/2024, 07/09/2023, Additional history exists Low Dose CT (for lung CA) age 50-80 09/02/2025 09/02/2024, 07/17/2023, 04/23/2017, Additional history exists Lipids for age 45-75 06/24/2029 06/24/2024, 07/09/2023, 01/11/2022, Additional history exists Hepatitis C screening for age 18-79 Completed 11/08/2016 AAA screening age 65-74 Completed 02/15/2020 Pneumococcal series for age 50+ Completed 07/09/2023, 11/26/2019, 02/20/2012, Additional history exists Hepatitis B series for [...] 12 LEAD STAT 09/02/2024 12:13 PM CDT MA READING EKG - NO CHARGE, COMP ONLY [...] CDT Cerebrovascular accident (CVA), unspecified mechanism (HC) LIPID PANEL W REFLEX MEASURED LDL Routine 06/24/2024 3:46 PM CDT Pure hypercholesterolemia OCCULT BLOOD IFOBT STOOL Routine 07/24/2023 3:04 PM CDT Screening for colon cancer US AORTA Routine 02/15/2020 8:31 AM [employer] Screening for AAA (abdominal aortic aneurysm) SCAN-COLONOSCOPY 02/04/2017 12:00 AM [employer] ANTI HCV Routine 11/08/2016 9:21 AM CDT Need for hepatitis C screening test from Last 3 Months or Most Recently Relevant to Health Maintenance Results * (ABNORMAL) CBC AND DIFFERENTIAL (09/16/2024 3:09 PM CDT) Pathologist [facility] WHITE BLOOD CELL COUNT 11.1(H) 3.8 - [...] 3:09 PM CDT 09/16/2024 3:09 PM CDT us Casimiro Mason MD HEMATOLOGY Final Result [facility] [address] [place] [address], [facility] [address] [place] [address] * (ABNORMAL) BASIC METABOLIC PANEL (09/16/2024 3:09 PM CDT) Only the most recent of10 resultswithin the time period is included. GLUCOSE 110(H) 65 - 99 mg/dL [facility] Comment: Fasting reference interval For [...] 3:09 PM CDT 09/16/2024 3:09 PM CDT Casimiro Mason MD CHEMISTRY Final Result [facility] [address] [place] [address], [place] [phone] [employer] [facility] [address] [place] [address] * PLATELET COUNT (09/12/2024 6:13 AM CDT) Only the most recent of6 resultswithin the time period is included. PLATELET COUNT 422 140 - 440 thou/cu mm 09/12/2024 6:40 AM CDT [facility] MPV 9.0 6.5 - 11.0 fL 09/12/2024 6:40 AM CDT [facility] Blood BLOOD SPECIMEN / Unknown Venipuncture / Unknown 09/12/2024 6:13 AM CDT 09/12/2024 6:29 AM CDT Dyllan Santacruz DO HEMATOLOGY Rahel l Result [facility] [address] [place] [address], * (ABNORMAL) HEMOGLOBIN (09/12/2024 6:13 AM CDT) Only the most recent of7 resultswithin the time period is included. HEMOGLOBIN 11.9(L) 13.5 - 17.5 g/dL 09/12/2024 6:40 AM CDT [facility] MCV 94 80 - 100 fL 09/12/2024 6:40 AM CDT [facility] Blood BLOOD SPECIMEN / Unknown Venipuncture / Unknown 09/12/2024 6:13 AM CDT 09/12/2024 6:29 AM CDT Dyllan Ramosk DO HEMATOLOGY Rahel l Result [facility] [address] [place] [address], [place] * POTASSIUM (09/12/2024 6:13 AM CDT) Only the most recent of3 resultswithin the time period is included. [facility] POTASSIUM 3.9 3.5 - 5.1 mmol/L 09/12/2024 7:13 AM CDT [facility] Blood BLOOD SPECIMEN / Unknown Venipuncture / Unknown 09/12/2024 6:13 AM CDT 09/12/2024 6:29 AM CDT Dyllan Ambrocioshanice Santacruz DO CHEMISTRY Rahel l Result Performing Organization Address City/[facility] Co de Phone Number [facility] [address] [place] [address], [place] * SCAN-CARDIAC STRIP (09/12/2024 1:06 AM CDT) [...] MD @ [facility] 2024 10:12AM (Electronically Signed) [email or web address] Narrative 09/10/2024 10:12 AM CDT For Patients: [...] MD @ [facility] 2024 10:12AM (Electronically Signed) [email or web address] Dyllan Humberto Santacruz DO GENERAL IMAGING [...] - 145 mmol/L 09/09/2024 7:03 AM CDT [facility] Blood BLOOD SPECIMEN / Unknown Venipuncture / Unknown 09/09/2024 6:12 AM CDT 09/09/2024 6:30 AM CDT Dyllan Santacruz CHEMISTRY Rahel l Result Performing Organization Address City/[facility] Co de Phone Number [facility] [address] [address], [place] * CREATININE (09/09/2024 6:12 AM CDT) Only the most recent of2 resultswithin the time period is included. eGFR >90 >90 mL/min/1.7 3m2 09/09/2024 7:03 AM CDT [facility] Comment:As of 2021, eG FR is calculated by the CKD-EPI creatinine equation without race adjustment. eGFR can be influenced by muscle mass, exercise, and diet. The reported eGFR is an estimation only and is only applicable if the renal function is stable. CREATININE 0.87 0.70 - 1.20 mg/dL 09/09/2024 7:03 AM CDT [facility] Blood BLOOD SPECIMEN / Unknown Venipuncture / Unknown 09/09/2024 6:12 AM CDT 09/09/2024 6:30 AM CDT Dyllan Santacruz CHEMISTRY Rahel l Result Performing Organization Address City/[facility] Co de Phone Number [facility] [address] [address], [place] * (ABNORMAL) CO2,TOTAL (09/09/2024 6:12 AM CDT) Only the most recent of2 resultswithin the time period is included. CO2,TOTAL 38(H) 22 - 29 mmol/L 09/09/2024 7:03 AM CDT [facility] Blood BLOOD SPECIMEN / Unknown Venipuncture / Unknown 09/09/2024 6:12 AM CDT 09/09/2024 6:30 AM CDT Dyllan Ramosk DO CHEMISTRY Rahel l Result [facility] [address] [address], [place] * APTT (09/09/2024 6:12 AM CDT) Only the most recent of13 resultswithin the time period is included. APTT 31 25 - 36 sec 09/09/2024 6:45 AM CDT [facility] Blood BLOOD SPECIMEN / Unknown Venipuncture / Unknown 09/09/2024 6:12 AM CDT 09/09/2024 6:30 AM CDT Narrative [facility] - 09/09/2024 6:45 AM CDT Therapeutic Range: 59-89 seconds [facility] Humberto Santacruz DO HEMATOLOGY Rahel l Result Performing Organization Address [facility] Co de Phone Number [facility] [address] [place] [address], [place] * SCAN-CARDIAC STRIP (09/09/2024 2:38 AM CDT) Scanner OTHER Final Result * (ABNORMAL) ACTIVATED CLOTTING TIME [id number] ACT (09/08/2024 4:58 PM CDT) ACTIVATED CLOTTING TIME, POCT 174(H) 74 - 125 sec 09/08/2024 7:10 PM CDT [facility] Blood BLOOD SPECIMEN / Unknown 09/08/2024 4:58 PM CDT 09/08/2024 7:09 PM CDT Dyllan Ramosk DO HEMATOLOGY Rahel l Result [facility] [address] [place] [address], [place] * CVL CORONARY ANGIOGRAM POSS PCI (09/08/2024 4:47 PM CDT) Anatomical Region Laterality Modality Other 09/08/2024 4:47 PM CDT Narrative Transcriptions Kirk Fleming MD - 09/08/2024 5:26 PM CDT [facility] Cardiac Catheterization Report Name: MITCHEL BERNABE Event Date: 09/08/2024 16:47 Excellian ID #: [id number] DAWSON #: [id number] Patient Class: Inpatient Diagnostic Physician: KIRK FLEMING [facility] Referring Physician: Date: 1955 Gender: Male Age: [...] with RVR in 110 range. Consent & [place] Protocol The risks, benefits, and alternatives of the procedure were discussed withthe patient and written informed consent was obtained. [place] protocol was followed. TIME OUT conducted just prior tostarting procedure confirmed patient identity, site/side, procedure,patient position, and availability of correct equipment and implants (ifapplicable). Staff Name Title Shemar Bhagat RN Nurse Beatriz Kuhn RN Nurse Maya Ignacio CVT Monitor Dolores Saldivar CVT Monitor Nikkie iL Stock Grader Osmar Sheets CVT Scrub Jose Limon Fellow KIRK FLEMING Diagnostic Substation Operator Automatic Procedures ? Ultrasound Guided Vascular Access ? [...] Fleming Karan 16:56 Nitroglycerin 100 mcg IC Kirk Fleming Karan 17:02 Digoxin 250 mcg IV Kirk Fleming Valaria RN 17:12 Lidocaine 1% w/Epi 1:100,000 4 ml Subcut Kirk Fleming Karan I personally monitored the patient?s conscious sedation during theprocedure. Conscious sedation starts with the first sedation medication dose ofFentanyl or Versed and ends when the procedure is completed, the patientis stable for recovery status, and the physician or other qualified healthcare professional providing the sedation ends personal [id number]-[id number] time with the patient. The medications listed above were verbally ordered by me and read back tome as documented above. Refer to the procedure log report for additional case details. electronically signed on 09/08/2024 5:26:30 PM with status of Final Kirk Fleming MD [place] [id number] [place] [address] (p) [phone](f) us Provider Referring CV IMAGING Edited Result - Final * (ABNORMAL) C-REACTIVE PROTEIN (09/08/2024 6:41 AM CDT) Only the most recent of4 resultswithin the time period is included. C-REACTIVE PROTEIN 2.2(H) <0.5 mg/dL 09/08/2024 7:33 AM CDT [facility] Blood BLOOD SPECIMEN / Unknown Butterfly / Unknown 09/08/2024 6:41 AM CDT 09/08/2024 6:49 AM CDT Dyllan Santacruz CHEMISTRY Rahel l Result Performing Organization Address City/[facility]/ZIP Co de Phone Number [facility] [address] [place] [address], [place] * URIC ACID (09/08/2024 6:41 AM CDT) URIC ACID 6.0 3.4 - 7.0 mg/dL 09/08/2024 2:22 PM CDT [facility] Blood BLOOD SPECIMEN / Unknown Butterfly / Unknown 09/08/2024 6:41 AM CDT 09/08/2024 6:49 AM CDT Dyllan Santacruz CHEMISTRY Rahel l Result Performing Organization Address City/[facility]/ZIP Co de Phone Number [facility] [address] [place] [address], [place] * MAGNESIUM (09/08/2024 6:41 AM CDT) Only the most recent of3 resultswithin the time period is included. MAGNESIUM 1.8 1.6 - 2.4 mg/dL 09/08/2024 7:33 AM CDT [facility] Blood BLOOD SPECIMEN / Unknown Butterfly / Unknown 09/08/2024 6:41 AM CDT 09/08/2024 6:49 AM CDT us Cecy Santa PA CHEMISTRY Fin al Result Performing Organization Address [facility] Co de Phone Number [facility] [address] [place] [address], * SCAN-CARDIAC STRIP (09/08/2024 1:01 AM CDT) us Scanner OTHER Final Result * SCAN-CARDIAC STRIP (09/07/2024 1:42 AM CDT) us Scanner OTHER Final Result * WHITE BLOOD COUNT (09/06/2024 6:03 AM CDT) Only the most recent of2 resultswithin the time period is included. WHITE BLOOD COUNT 11.0 4.5 - 11.0 thou/cu mm 09/06/2024 6:36 AM CDT [facility] NRBC 0.0 % 09/06/2024 6:36 AM CDT [facility] ABS NRBC 0.0 thou /cu mm 09/06/2024 6:36 AM CDT [facility] Blood BLOOD SPECIMEN / Unknown Venipuncture / Unknown 09/06/2024 6:03 AM CDT 09/06/2024 6:30 AM CDT us Maria Eugenia Batres MD HEMATOLOGY Final Res ult Performing Organization Address [facility] Co de Phone Number [facility] [address] [place] [address], * SCAN-CARDIAC STRIP (09/06/2024 12:44 AM CDT) us Scanner OTHER Final Result * (ABNORMAL) BLOOD GAS,VENOUS (09/05/2024 9:19 AM CDT) Only the most recent of5 resultswithin the time period is included. PH, VENOUS 7.32 7.32 - 7.43 09/05/2024 9:32 AM CDT [facility] PCO2, VENOUS 62(H) 41 - 51 mmHg 09/05/2024 9:32 AM CDT [facility] PO2, VENOUS 72(H) 35 - 40 mmHg 09/05/2024 9:32 AM CDT [facility] HCO3,VENOUS 32(H) 22 - 29 mmol/L 09/05/2024 9:32 AM CDT [facility] BASE EXCESS, VENOUS, POCT 4.0(H) -2.0 - 3.0 09/05/2024 9:32 AM CDT [facility] O2 SATURATION, VENOUS 97(H) 70 - 75 % 09/05/2024 9:32 AM CDT [facility] PATIENT TEMPERATURE 37.0 Degrees C 09/05/2024 9:32 AM CDT [facility] Blood VENOUS BLOOD SPECIMEN / Unknown Venipuncture / Unknown 09/05/2024 9:19 AM CDT 09/05/2024 9:27 AM CDT us Maria Eugenia Batres MD CHEMISTRY Final Res ult Performing Organization Address City/[facility]/ZIP Co de Phone Number [facility] [address] [place] [address], [place] * SCAN-CARDIAC STRIP (09/05/2024 1:24 AM CDT) us Scanner OTHER Final Result * EXTRA TUBE BLUE (09/04/2024 8:04 PM CDT) Blood BLOOD SPECIMEN / Unknown Non-Lab Venipuncture / Unknown 09/04/2024 8:04 PM CDT 09/04/2024 8:14 PM CDT us Maria Eugenia Batres MD LABORATORY Final Res ult [facility] [address] [place] [address], [place] * (ABNORMAL) CBC (09/04/2024 5:01 AM CDT) Only the most recent of3 resultswithin the time period is included. WHITE BLOOD COUNT 16.2(H) 4.5 - 11.0 thou/cu mm 09/04/2024 5:26 AM CDT [facility] RED BLOOD COUNT 3.60(L) 4.30 - 5.90 mil/cu mm 09/04/2024 5:26 AM T [facility] HEMOGLOBIN 11.1(L) 13.5 - 17.5 g/dL 09/04/2024 5:26 AM T [facility] HEMATOCRIT 35.5(L) 37.0 - 53.0 % 09/04/2024 5:26 AM CDT [facility] MCV 99 80 - 100 fL 09/04/2024 5:26 AM CDT [facility] MCH 30.8 26.0 - 34.0 pg 09/04/2024 5:26 AM T [facility] MCHC 31.3(L) 32.0 - 36.0 g/dL 09/04/2024 5:26 AM T [facility] RDW 12.6 11.5 - 15.5 % 09/04/2024 5:26 AM T [facility] PLATELET COUNT 267 140 - 440 thou/cu mm 09/04/2024 5:26 AM T [facility] MPV 9.5 6.5 - 11.0 fL 09/04/2024 5:26 AM CDT [facility] NRBC 0.0 % 09/04/2024 5:26 AM CDT [facility] ABS NRBC 0.0 thou /cu mm 09/04/2024 5:26 AM T [facility] Blood BLOOD SPECIMEN / Unknown Venipuncture / Unknown 09/04/2024 5:01 AM CDT 09/04/2024 5:22 AM CDT us Maria Eugenia Batres MD HEMATOLOGY Final Res ult [facility] [address] [place] [address], [place] * SCAN-CARDIAC STRIP (09/04/2024 1:04 AM CDT) us Scanner OTHER Final Result * (ABNORMAL) PROTIME-INR (09/03/2024 11:44 AM CDT) INR 1.3(H) <1.3 09/03/2024 12:02 PM CDT [facility] PROTIME 14.7(H) 10.6 - 12.4 sec 09/03/2024 12:02 PM CDT [facility] Blood BLOOD SPECIMEN / Unknown Venipuncture / Unknown 09/03/2024 11:44 AM CDT 09/03/2024 11:51 AM CDT Narrative [facility] - 09/03/2024 12:02 PM CDT [...] seconds if the patient is on UFH. Cecy BALDERAS HEMATOLOGY Fin al Result Performing Organization Address [facility]UST de Phone Number [facility] [address] [place] [address], [place] * SCAN-CARDIAC STRIP (09/03/2024 1:45 AM CDT) us Scanner OTHER Final Result * SCAN-CARDIAC STRIP (09/02/2024 10:57 PM CDT) us Scanner OTHER Final Result * MR Brain wo Contrast - TIA or Stroke (09/02/2024 7:14 PM CDT) Anatomical Region Laterality Modality BRAIN, HEAD Magnetic [...] @ 09/02/2024 7:34:52 PM (Electronically Signed) Sarah Aragon Plutrichar DO MR Final Result * (ABNORMAL) LACTATE VENOUS (09/02/2024 5:53 PM CDT) Only the most recent of2 resultswithin the time period is included. Pathologist [facility] LACTATE,VENOUS 2.2(H) 0.5 - 2.0 mmol/L 09/02/2024 6:44 PM CDT [facility] Blood BLOOD SPECIMEN / Unknown Non-Lab Venipuncture / Unknown 09/02/2024 5:53 PM CDT 09/02/2024 5:58 PM CDT Sarah Aragon Plutrichar DO CHEMISTRY Final Result [facility] [address] [place] [address], * (ABNORMAL) MRSA/SA PCR (09/02/2024 5:44 PM CDT) [facility] MRSA DNA PCR Negative Negative 09/02/2024 7:45 PM CDT [facility] STAPHYLOCOCCUS AUREUS PCR Positive(A) Negative 09/02/2024 7:45 PM CDT [facility] Other SPECIMEN FROM INTERNAL NOSE / Unknown Non-Blood / Unknown 09/02/2024 5:44 PM CDT 09/02/2024 5:58 PM CDT Narrative [facility] - 09/02/2024 7:45 PM CDT S. aureus detected; NOT MRSA. Test result does not preclude MRSA nasal colonization. False negative for MRSA could be obtained if MRSA present in the sample is below threshold of detection. Sarah Lanutrichar DO MICROBIOLOGY Final Result Performing Organization Address [facility] Co de Phone Number [facility] [address] [place] [address], * (ABNORMAL) TROPONIN T (HS) ONE TIME (09/02/2024 3:15 PM CDT) TROPONIN T HS 81(H) 6-15 ng/L ng/L 09/02/2024 4:06 PM CDT [facility] Blood BLOOD SPECIMEN / Unknown Non-Lab Venipuncture / Unknown 09/02/2024 3:15 PM CDT 09/02/2024 3:31 PM CDT Sarah Cantrell DO CHEMISTRY Final Result Performing Organization Address [facility] de Phone Number [facility] [address] [place] [address], [place] * TSH (09/02/2024 3:15 PM CDT) Pathologist [facility] TSH 2.38 0.27 - 4.20 uIU/mL 09/02/2024 5:37 PM CDT [facility] Blood BLOOD SPECIMEN / Unknown Non-Lab Venipuncture / Unknown 09/02/2024 3:15 PM CDT 09/02/2024 3:31 PM CDT Narrative [facility] - 09/02/2024 5:37 PM CDT In Adults, TSH values between 5.00 and 10.00 uIU/ml do not necessarily indicate the presence of Hypothyroidism. Correlation with clinical findings such as presence of goiter and/or Thyroperoxidase (TPO) Antibody may be helpful. For more information please refer to SEE 2004; 291: 228-238. Maria Eugenia Batres MD CHEMISTRY Final Res ult Performing Organization Address [facility] Co de Phone Number [facility] [address] [place] [address], [place] * EKG 12 LEAD (09/02/2024 3:12 PM CDT) Only the most recent of3 resultswithin the time period is included. Interpretation Atrial fibrillation Abnormal ECG Compared to ekg of 02-SEP-2024, Decreased Rate Ongoing Atrial fibrillation BEYOND NOW Ventricular Rate 94 BPM BEYOND NOW Atrial Rate BPM BEYOND NOW P-R Interval ms BEYOND NOW QRS Duration 100 ms BEYOND NOW QT 344 ms BEYOND NOW QTc 430 ms BEYOND NOW P [place] degrees BEYOND NOW R [place] 25 degrees BEYOND NOW T [place] 53 degrees BEYOND NOW 09/02/2024 3:12 PM CDT 09/02/2024 4:33 PM CDT us Saarh Nelson Margo Plutt DO EKG ORD Final Result BEYOND NOW [place], [place] * CT CHEST PE STUDY (09/02/2024 [...] MD @ 09/02/2024 15:03:09 (Electronically Signed) Sarah Leslierosalee Aragon Plutt DO CT Final Result * (ABNORMAL) LACTATE SCREEN ISTAT W PAYNE (09/02/2024 2:28 PM CDT) LACTATE VENOUS SCREEN ISTAT Intermedia te(A) <=2.0 09/02/2024 3:27 PM CDT [facility] LACTATE SCREEN VENOUS POCT 3.4(H) <=2.0 09/02/2024 3:27 PM CDT [facility] Blood BLOOD SPECIMEN / Unknown 09/02/2024 2:28 PM CDT 09/02/2024 3:27 PM CDT Narrative [facility] - 09/02/2024 3:27 PM CDT Lactate screen results of 2.1-3.9 mmol/L are reported as Intermediate. Lactate screen results of 4.0 mmol/L or greater are reported as Critical. Elevated whole blood lactate screening results >2.0 are automatically referred for confirmatory plasma lactate quantitation. Sarah Learyureen Margo Plutt DO LABORATORY Final Result Performing Organization Address City/[facility]/ZIP Co de Phone Number [facility] [address] [place] [address], * EXTRA TUBE PAYNE ON ICE (09/02/2024 2:04 PM CDT) Blood BLOOD SPECIMEN / Unknown Non-Lab Venipuncture / Unknown 09/02/2024 2:04 PM CDT 09/02/2024 2:13 PM CDT Sarah Aragon Plutt DO LABORATORY Final Result Performing Organization Address City/[facility]/ZIP Co de Phone Number [facility] [address] [place] [address], * BLOOD CULTURE X2 (09/02/2024 1:58 PM CDT) Only the most recent of2 resultswithin the time period is included. Pathologist [facility] CULTURE No Growth. 09/07/2024 3:21 PM CDT [facility] Blood BLOOD SPECIMEN / Unknown Non-Lab Venipuncture / Unknown 09/02/2024 1:58 PM CDT 09/03/2024 8:56 AM CDT Narrative [facility] - 09/07/2024 3:21 PM CDT Low volume blood culture received; possible false negative culture. Sarah Lanutt DO MICROBIOLOGY Final Result [facility] [address] [address], [place] * COVID-19 MOLECULAR (09/02/2024 1:07 PM CDT) [facility] COVID 19 [facility] MOLECULAR Negative Negative 09/02/2024 2:28 PM CDT [facility] Comment:All PCR tests are najera bject to false negative result due to variability in viral load and collection technique. A negative result does not rule out a SARS-CoV-2 infection. Clinical correlation required. TESTING LABORATORY [facility] 09/02/2024 2:28 PM CDT [facility] Comment:Specimen submitted t o [facility] for testing. Other SPECIMEN FROM NASOPHARYNGEAL STRUCTURE / Unknown Non-Blood / Unknown 09/02/2024 1:07 PM CDT 09/02/2024 1:13 PM CDT Sarah Cantrell DO MICROBIOLOGY Final Result [facility] [address] [place] [address], [place] * (ABNORMAL) TROPONIN T (HS) ACUTE W/2HR REFLEX (09/02/2024 1:07 PM CDT) [facility] TROPONIN T HS 78(H) 6-15 ng/L ng/L 09/02/2024 1:50 PM CDT [facility] Blood BLOOD SPECIMEN / Unknown Line/Port / Unknown 09/02/2024 1:07 PM CDT 09/02/2024 1:13 PM CDT Narrative [facility] - 09/02/2024 1:50 PM CDT hs-cTnT [...] low risk in emergency department patient population. us Sarah Cantrell DO CHEMISTRY Final Result [facility] [address] [place] [address], * INFLUENZA A/B PCR (09/02/2024 1:07 PM CDT) INFLUENZA A PCR Negative 09/02/2024 2:28 PM CDT [facility] INFLUENZA B PCR Negative 09/02/2024 2:28 PM CDT [facility] Other SPECIMEN FROM NASOPHARYNGEAL STRUCTURE / Unknown Non-Blood / Unknown 09/02/2024 1:07 PM CDT 09/02/2024 1:13 PM CDT Sarah Cantrell DO MICROBIOLOGY Final Result [facility] [address] [place] [address], * (ABNORMAL) PROCALCITONIN (09/02/2024 1:07 PM CDT) PROCALCITONIN 2.90(H) ng/ml 09/02/2024 1:50 PM CDT [facility] Blood BLOOD SPECIMEN / Unknown Line/Port / Unknown 09/02/2024 1:07 PM CDT 09/02/2024 1:13 PM CDT Narrative [facility] - 09/02/2024 1:50 PM CDT [...] concentrations < 2 ng/mL are obtained. Sarah Cantrell DO SEND OUTS Final Result [facility] [address] [place] [address], * (ABNORMAL) D-DIMER,QUANTITATIVE (09/02/2024 1:07 PM CDT) D-DIMER,QUANTI TATIVE 0.80 See comment FEU mcg/mL 09/02/2024 1:26 PM CDT [facility] D-DIMER INTERP Abnormal( A) 09/02/2024 1:26 PM CDT [facility] Blood BLOOD SPECIMEN / Unknown Line/Port / Unknown 09/02/2024 1:07 PM CDT 09/02/2024 1:13 PM CDT Narrative [facility] - 09/02/2024 1:26 PM CDT The cut off value for exclusion of Deep Vein Thrombosis and / or Pulmonary Embolism is 0.50 FEU mcg/mL For patients greater than 50 years of age the upper limit is age dependent and was calculated with the formula: (PATIENT AGE x 0.01) FEU mcg/mL = Upper limit of normal range Sarah Cantrell DO HEMATOLOGY Final Result [facility] [address] [place] [address], [place] * (ABNORMAL) PRO-BNP (09/02/2024 1:07 PM CDT) PRO-BNP 1,616(H) <125 pg/mL 09/02/2024 1:50 PM CDT [facility] Blood BLOOD SPECIMEN / Unknown Line/Port / Unknown 09/02/2024 1:07 PM CDT 09/02/2024 1:13 PM CDT Narrative [facility] - 09/02/2024 1:50 PM CDT The following [...] of 72% for acute congestive heart failure. Sarah Cantrell DO SEND OUTS Final Result [facility] [address]151tuan [facility] [address] [place] [address], [place] * CK TOTAL (09/02/2024 1:07 PM CDT) CK,TOTAL 39 39 - 308 IU/L 09/02/2024 1:40 PM CDT [facility] Blood BLOOD SPECIMEN / Unknown Line/Port / Unknown 09/02/2024 1:07 PM CDT 09/02/2024 1:14 PM CDT us Sarah Aragon Plutt DO CHEMISTRY Final Result [facility] [address] [place] [address], [place] * MA READING EKG - NO CHARGE, COMP ONLY (08/14/2024 2:43 PM CDT) us Casimiro Mason MD PB - PROVIDER READINGS Final Result * CT CARDIAC CORONARY ARTERIES CV DUAL READ (08/13/2024 11:27 AM CDT) Anatomical Region Laterality Modality HEART Computed Tomogra phy 08/13/2024 11:2 5 AM CDT Narrative 08/13/2024 4:36 PM CDT [employer] [facility] Cardiac CT Report Name: MITCHEL BERNABE : Scan Date: Accession Number: [id number] Status: Final Electronically signed by Haim Fang 13:20:49 VITALS HEIGHT: 66 in (168 cm) [...] LM 144 LAD 1314 LCx 936 RCA Juliann Ramus '-------+ + +--------+ ' SCAN INFO TEST TYPE: Calcium score, Coronary CT Angiography SCANNER FIRST LINE PRODUCTION SUPERVISOR: SIEMENS SCANNER MODEL: [employer] DOSE REDUCTION ALGORITHM: Helical with dose modulation [...] OTHER, SPECIFY:: pre op eval REFERRING PHYSICIAN: CASIMIRO MASON TECHNOLOGIST: Doris Holcomb BILLING Patient Account [id number] ICD10 Codes I20.89 Report generated by [employer], a product of [employer] pirate Casimiro Mason MD CT Final Result * CT [...] conjunction with the services provided by the [facility] ([facility]). INDICATION: Cardiac over-read. FINDINGS: No pulmonary emboli. [...] in conjunction with the services provided bythe [facility] ([facility]). INDICATION: Cardiac over-read. FINDINGS: No pulmonary emboli. [...] @ 08/13/2024 2:45:44 PM (Electronically Signed) us Casimiro Mason MD CT Final Result * CREATININE,ISTAT (08/13/2024 9:17 AM CDT) POCT,CREATININE , ISTAT 1.2 0.6 - 1.3 mg/dL [facility] ( Blood BLOOD SPECIMEN / Unknown 08/13/2024 9:17 AM CDT 08/13/2024 9:17 AM CDT Rk Guo MD CHEMISTRY Final Result [facility] [address] [place] [address], [facility] ( [address] [place] [address] * CTA HEAD AND NECK CAROTID (08/04/2024 [...] are clear. There is fluid within the sxpmt-fheyifn-twln-left mastoid air cells and right middle ear [...] are clear. There is fluid within the ejglw-hfkomxq-jtaw-left mastoid air cells andright middle ear consistent [...] Weight: 108.00 kg Tech: KATHERYN Referring MD: CASIMIRO MASON Site: [facility] Reading Location: Mobile-OP Patient Location: Outpatient. Procedure: [...] 2 cc ml diluted Definity, lot #[id number], [facility]# [id number] was administered peripherally to enhance visualization of all left ventricular segments. . This study was interpreted by an [facility] accredited facility. Final Procedure Note Mitchel Partida MD - 07/27/2024 ECHOCARDIOGRAM MITCHEL BERNABE : 1955 68 years Study Date: 07/27/2024 12:53:30 PM Gender: M BP: 110/60 mmHg Height: 168.00 cm BSA: 2.16 m Weight: 108.00 kg Tech: Sonya Referring MD: CASIMIRO MASON Site: [facility] Reading Location: Mobile-OP Patient Location: Outpatient. Procedure: [...] 2 cc ml diluted Definity, lot #[id number], [facility]#[id number] was administered peripherally to enhance visualization of allleft ventricular segments. . This study was interpreted by an [facility] accredited facility. Final us Casimiro Mason MD ECHO ORD Final Result * (ABNORMAL) LIPID PANEL W REFLEX MEASURED LDL (06/24/2024 3:46 PM CDT) CHOLESTEROL, TOTAL 207(H) <200 mg/dL [facility] HDL CHOLESTEROL 35(L) > OR = 40 mg/dL [facility] TRIGLYCERIDES 299(H) <150 mg/dL [facility] Comment: If a non-fasting specimen was collected, consider repeat triglyceride testing on a fasting specimen if clinically indicated. Ant et al. J. of Clin. Lipidol. 2015;9:129-169. LDL-CHOLESTEROL 129(H) mg/dL (calc) [facility] Comment: Reference range: <100 Desirable range <100 mg/dL for primary prevention; <70 mg/dL for patients with CHD or diabetic patients with > or = 2 CHD risk factors. LDL-C is now calculated using the Lavelle-Velasquez calculation, which is a validated novel method providing better accuracy than the Friedewald equation in the estimation of LDL-C. Lavelle CHOWDARY et al. SEE. 2013;310(19): 7344-1477 (http://education.Fotolia.Toptal/faq/FJR604) CHOL/HDLC RATIO 5.9(H) <5.0 (calc) [facility] NON HDL CHOLESTEROL 172(H) <130 mg/dL (calc) [facility] Comment: For patients with diabetes plus 1 major ASCVD risk factor, treating to a non-HDL-C goal of <100 mg/dL (LDL-C of <70 mg/dL) is considered a therapeutic option. Blood BLOOD SPECIMEN / Unknown 06/24/2024 3:46 PM CDT 06/24/2024 3:46 PM CDT Casimiro Mason MD CHEMISTRY Final Result Performing Organization Address [facility]/ZIP Co de Phone Number [facility] [address] [place] [address], [facility] [address] [place] [address] * OCCULT BLOOD IFOBT STOOL (07/24/2023 3:04 PM CDT) STOOL BLOOD ,IFOBT Negative Negative 08/02/2023 8:49 AM CDT [facility] Stool STOOL SPECIMEN / Unknown Non-Blood / Unknown 07/24/2023 3:04 PM CDT 08/01/2023 3:05 PM CDT Casimiro Mason MD LABORATORY Final Result Performing Organization Address City/[facility] Co de Phone Number [facility] [address] [place] [address], [place] [phone] * US AORTA (02/15/2020 8:31 AM ANTISUBMARINE WEAPONS OFFICER) Anatomical Region Laterality Modality Abdomen, AORTA Ultrasound 02/15/2020 10:2 5 AM ANTISUBMARINE WEAPONS OFFICER Narrative 02/15/2020 10:25 AM ANTISUBMARINE WEAPONS OFFICER INDICATION: Screen for abdominal aortic aneurysm COMPARISON: [...] Resu lt * SCAN-COLONOSCOPY (02/04/2017 12:00 AM ANTISUBMARINE WEAPONS OFFICER) us Scanner OTHER Final Result * ANTI HCV (11/08/2016 9:21 AM CDT) HEPATITIS C ANTIBODY Non-Reacti ve Non-Reacti ve 11/08/2016 4:37 PM CDT [facility] Blood BLOOD SPECIMEN / Unknown Venipuncture / Unknown 11/08/2016 9:21 AM CDT 11/08/2016 9:21 AM CDT Narrative [facility] [address] [facility] - 11/08/2016 4:37 PM CDT Antibodies to HCV not detected; does not exclude the possibility of exposure to HCV. us Mitchel Nam MD SEND OUTS Final Resu lt [facility] [address] [place] [address], from Last 3 Months or Most Recently Relevant to Health Maintenance Insurance [facility] MR MEDICARE PART A HB ONLY [address] [place] [id number] [facility] * Guarantor: [facility] [employer] Account Type Relation to Patient Date of Phone Billing Address [facility]/[employer] [address] [facility] [place] [address] Advance Directives * DNR (Latest Code Status on File) Date Activated Date Inactivated Comments 09/02/2024 10:36 PM 09/12/2024 3:50 PM Question Answer Comments Code Status Discussion: Reviewed Preferences * Full Code Date Activated Date Inactivated Comments 02/18/2012 3:24 PM 02/20/2012 9:27 PM Care Teams Dock Builder Relationship Specialty Start Date End Date Casimiro Mason MD [address] [place] [address] PCP - General Family Practice 12/21/21 [place] [id number] [address] [address] 09/12/24
--- OUTSIDE RECORDS SUMMARY | 2024-10-10 09:57 | XMS_ITS | Encounter Summary ---
Author Organization [facility] Address [address] [place] [address] [place] [address] Care Team Providers Care Keg Filler Name Role Phone Casimiro Mason MD Primary Care Provider Encounter Details Date Type Department Care Team (Late st Contact Info) Description 08/18/2024 Results Follow-Up [facility] [place] - [address] [place] [address] Azul Fernandes MONITOR COMPLETE 7 TO 15 [...] on filedocumented in this encounter Care Teams Keg Filler Relationship Specialty Start Date End Date Casimiro Mason MD [address] [place] [address] PCP - General Family Medicine 07/08/24 documented as of this encounter
--- OUTSIDE RECORDS SUMMARY | 2024-10-10 09:57 | XMS_ITS | Referral Summary ---
Author Organization [facility] Address [address] [place] [address] [place] [address] Care Team Providers Care Detective Bureau Chief Name Role Phone Cinthia Mason MD Primary Care Provider Encounters Date Type Department Care Team Description 08/18/2024 Results Follow-Up [facility] Heart & Vascular [place] - [place] [address] [place] [address] [address] [place] [address] Azul Fernandes MONITOR COMPLETE 7 TO 15 DAYS from Last 3 Months Allergies No known [...] (Moderna) 12+ Yrs M onovalent COVID Vaccine (reducing system operator) 07/06/2020,06/08/2020 Td 08/09/2004 Tdap 01/18/2014,05/02/2002 Zoster Live [...] CDT Cerebrovascular accident (CVA), unspecified mechanism (HCC) HEMOGLOBIN A1C ([facility]) Routine 07/08/2024 12:49 PM CDT Stenosis of right carotid artery Cerebrovascular accident (CVA), unspecified mechanism (HCC) from Last 3 Months or Most Recently Relevant to Health Maintenance Results * ZIO MONITOR COMPLETE 7 TO 15 DAYS (08/17/2024 11:42 AM CDT) EKG I FREDI Comment: [facility] Test Date: 2024-08-17 Pat Name: MITCHEL BERNABE Department: [facility] Room: Gender: Office Support Specialist: : 1955 Requested By: YVETTE RISO MD Order Number: [id number] Reading MD: Danial Wu MD Interpretive Statements ZIO DOS: 07/27/24 TO 08/10/24 DURATION: 13 DAYS 22 HOURS PCP: CINTHIA MASON MD ORDERING: YVETTE RIOS NP PRIMARY CIVIL ENGINEERING DESIGN DRAFTSPERSON: NONE INDICATION: CVA RESULTS: Patient had a [...] 2. No significant cardiac arrhythmias were seen. [facility] [place] Electronically Signed On 08-18-2024 16:35:47 CDT by Danial Wu MD 08/17/2024 11:4 2 AM CDT Yvette Rios APRN, CNP CARDIO ORDERABLE Final Result Performing Organization Address [facility] de Phone Number Byron RAI [address] [facility] [place] [address] * (ABNORMAL) HEMOGLOBIN A1C ([facility]) (07/08/2024 12:49 PM CDT) HgbA1c ([facility]) 5.9(H) 4.8 - 5.6 % [facility] 1 Comment: Prediabetes: 5.7 - 6.4 Diabetes: >6.4 Glycemic control for adults with diabetes: <7.0 Blood 07/08/2024 12:4 9 PM CDT 07/07/2024 11:00 PM CDT Narrative [facility] 1 - 07/13/2024 8:08 AM CDT Performed at: 01 - [facility] [address] [id number] Diamond Driller: Avinash Haley MD, Phone: [phone] Yvette Rios APRN, CNP [facility] ORDERABLES Rahel l Result Performing Organization Address City/[facility] Co de Phone Number [facility] 1 from Last 3 Months or Most Recently Relevant to Health Maintenance Insurance [facility] MEDICARE ADVANTAGE * Guarantor: MITCHEL BERNABE Account Type Relation to Patient Date of Phone Billing Address Personal/Family [address] [place] [address] UHC MEDICARE ADVANTAGE Care Teams Detective Bureau Chief Relationship Specialty Start Date End Date Cinthia Mason MD [address] [place] [address] PCP - General Family Medicine 07/08/24
--- OUTSIDE RECORDS SUMMARY | 2024-10-10 09:57 | XMS_ITS | Clinical Summary ---
Author Organization [facility] Address [address] [place] [address] [place] [address] Care Team Providers Care Nail Maker Name Role Phone Cinthia Mason MD Primary Care Provider Allergies No [...] Department Care Team Description 08/18/2024 Results Follow-Up [facility] [address] [address] Azul Fernandes MONITOR COMPLETE 7 TO 15 DAYS from Last 3 Months Immunizations Immunization Administration [...] (Moderna) 12+ Yrs M onovalent COVID Vaccine (scallop dredger) 07/06/2020,06/08/2020 Td 08/09/2004 Tdap 01/18/2014,05/02/2002 Zoster Live [...] Wellness Visit 07/08/2024 07/09/19 24, 01/11/2022, 02/11/2020 Influenza Vaccine (#1) 2024 4, 01/19/2023, 12/18/2021, Additional history exists HgbA1C 01/07/2025 07/08/2024 Thyroid-Stimulating Hormone (TSH) 06/24/2025 06/24/2024 Creatinine 08/13/2025 08/13/2024, 07/30, 06/24/2024, Additional history exists Hepatitis C Screening Completed 11/08/2016 AAA Ultrasound Screening Completed 02/15/2020 Pneumococcal 50+ Years Completed 4, 11/26/2019, 02/20/2012, Additional history exists Meningococcal B Vaccine Aged [...] 15 DAYS (08/17/2024 11:42 AM CDT) EKG HVI FREDI Comment: [facility] Test Date: 2024-08-17 Pat Name: MITCHEL BERNABE Department: [facility] Room: Gender: Air Brake Man: : 1955 Requested By: YVETTE RIOS MD Order Number: [id number] Reading MD: Danial Wu MD Interpretive Statements ZIO DOS: 07/27/24 TO 08/10/24 DURATION: 13 DAYS 22 HOURS PCP: CINTHIA MASON MD ORDERING: YVETTE RIOS NP PRIMARY DERRICK BUILDER: NONE INDICATION: CVA RESULTS: Patient had a [...] 2. No significant cardiac arrhythmias were seen. [facility] [place] Electronically Signed On 08-18-2024 16:35:47 CDT by Danial Wu MD 08/17/2024 11:4 2 AM CDT us Yvette Rios APRN, CNP CARDIO ORDERABLE Final Result [facility] [address] [id number] * (ABNORMAL) HEMOGLOBIN A1C ([facility]) (07/08/2024 12:49 PM CDT) HgbA1c ([facility]) 5.9(H) 4.8 - 5.6 % [facility] 1 Comment: Prediabetes: 5.7 - 6.4 Diabetes: >6.4 Glycemic control for adults with diabetes: <7.0 Blood 07/08/2024 12:4 9 PM CDT 07/07/2024 11:00 PM CDT Narrative [facility] 1 - 07/13/2024 8:08 AM CDT Performed at: - [facility] [address] [id number] Baker Apprentice: Avinash Haley MD, Phone: [phone] Yvette Rios APRN, CNP [facility] ORDERABLES Rahel l Result Performing Organization Address City/[facility] Co de Phone Number [facility] 1 from Last 3 Months or Most Recently Relevant [place] [id number] [facility] MEDICARE ADVANTAGE * Guarantor: MITCHEL BERNABE Account Type Relation to Patient Date of Phone Billing Address Personal/Family [id number] [place] [id number] [facility] MEDICARE ADVANTAGE Care Teams Nail Maker Relationship Specialty Start Date End Date Cinthia Mason MD [address] [place] [address] PCP - General Family Medicine 07/08/24
--- NOTE | 2024-10-10 10:18 | ED.GENADULT ---
HPI - General Adult General Date Seen: 10/10/24 Chief complaint: Neuro Symptoms/Altered Deficit Stated complaint: Pt. feels like he is having a stroke Time Seen by Provider: 10/10/24 10:18 History of Present Illness HPI narrative: 69-year-old man with a past medical history including hypertension, pulmonary hypertension, paroxysmal AFib, carotid stenosis, elevated BMI, subclinical hypothyroidism, type 2 diabetes, recent pneumonia with sepsis, sleep apnea, COPD, chronic respiratory failure on chronic home oxygen (3-4 L). History from the patient and his is that he is here for TIA symptoms. He started having TIAs with left arm and leg weakness a couple of months ago and had a workup. It was discovered that he had about a 50% left carotid stenosis and a 50-69% right carotid stenosis. (however, later I was able to have a conversation with the stroke neurologist from [facility]. He was able to find the patient's CT angio report any actually has critical stenosis of the right carotid with 80-90% stenosis. He has severe stenosis of the left with 75-80% stenosis). He was in the process of getting a workup with vascular surgery (Dr. Irvin) with plans for carotid endarterectomy. However he wound up in the hospital at [facility] with a exacerbation of pneumonia and COPD so his in order rectum he had to be put on hold. He was also diagnosed with AFib while in the hospital. He has been on aspirin and Plavix and has been taking all of his other meds. After being discharged from the hospital he had a few weeks where he felt really good. However this past week symptoms have been returning. He has noted a little bit more worsening productive cough and a little bit of shortness of breath. No chest pain. No palpitations. No fever. He also notes this week that he has had several very brief episodes where his left arm and leg get shaky and weak and numb. He was trying to ignore them and was waiting for his outpatient follow-up. However this morning shortly after getting up he had a more severe episode where he had definite weakness and numbness of his left arm. He almost dropped a glass. Also with this his left leg was quite weak and he almost fell down. Symptoms lasted less than a minute and have since resolved. As we speak now, he has no symptoms. Current med list according to is [facility] record view bleed through [facility] care link includes apixaban 5 mg b.i.d., clopidogrel 75 mg daily, Lasix 40 mg, lisinopril 20 mg, metoprolol succinate 25 mg daily, home oxygen, rosuvastatin, amlodipine, DuoNebs, indomethacin Per primary care clinic visit from 09/16/[address] Mason 1. Follow-up complex hospital stay as follows. 2. Multifocal pneumonia and COPD exacerbation: Treated with antibiotics, and now completing a prednisone taper. Doing well on Trelegy. Has pulmonary testing scheduled for 2 days from now by his report. 3. Severe sepsis. Recovered. 4. A-fib with RVR: Sinus rhythm clinically today. Continue apixaban for stroke prophylaxis. Good rate control on metoprolol succinate. 5. Angiogram showing nonobstructive moderate coronary artery disease: No PCI done. Medical management and risk factor management. 6. Change in statin therapy from pravastatin to rosuvastatin. 7. CVD status post TIA/stroke with severe right carotid artery stenosis: Schedule follow-up with vascular surgeon, with goal to reschedule carotid endarterectomy. 8. Follow-up: Pulmonology this Saturday. Vascular surgery to be scheduled. Cardiology October 27 Per DC summary from [facility] dayed 09/12/24 Reynold Huerta is a(n) 69 y.o. 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 Reported 1-2 days of generalized weakness and fatigue, associated with dyspnea, URI symptoms, and worsening cough. Patient has spent most of the past 2 days in bed and not eating or drinking much.In addition to the URI symptoms described above, patient also reports intermittent episodes of his left leg giving out as well as his left arm feeling shaky and in losing some of the fine motor skills briefly. He had 2 falls on day of admission because of his left leg giving out. His found him on the floor. Code status had been discussed with the patient - he would like to be DNR/DNI. He is agreeable to ICU transfer for vasopressor support if it were needed. ? In the ED, he was intermittently hypotensive with MAPs in the high 50s, low 60s at times. HR in the low 100s and Afib with RVR. WBC 14, Hgb 12, creatinine 1.67, BNP 1616, VBG 7.27/66, procal elevated at 2.9, COVID-19 negative, influenza negative, CK normal. CT PE negative for PE but with evidence of multifocal pneumonia. He has received 2.2L of IVFs in the ED, duoneb, cefepime, doxycycline. Blood cultures obtained and were negative. ? He has no history of known atrial fibrillation, new diagnosis. Started on anticoagulation and rate control with metoprolol. ? Being worked up for right carotid endarterectomy outpatient. CTA coronary with significant multivessel CAD, thus endarterectomy has been put on hold. Seen by Cardiology for pre-op planning, Coronary angiogram 09/08/2024 with moderate nonobstructive coronary artery disease, medical therapy recommended. ? For his pneumonia, treating with broad spectrum antibiotics. Increased O2 needs, thus started on steroids as well. Patient has improved from a lab perspective, and feels better, but continues to have high oxygen needs. Given intermittent lasix by cardiology. Completed 10 days of Cefepime/Ceftriaxone and 5 days of doxy while inpatient. Discharge with a steroid taper. ? 09/11/2024 requires 4L at rest and 6L with activity, higher needs than his current home machines can meet. Care coordination consulted for getting new home oxygen machine. Also given a nebulizer and started on trelegy inhaler. PT cleared patient to discharge home with home care. Related Data Home Medications ?Medication ?Instructions ?Recorded ?Confirmed amlodipine 10 mg tablet 10 mg PO DAILY 07/12/22 10/10/24 lisinopril 20 mg tablet 20 mg PO DAILY 07/12/22 10/10/24 potassium chloride 10 mEq 10 meq PO DAILY 07/12/22 10/10/24 tablet,extended release furosemide 40 mg tablet 40 mg PO DAILY 09/25/22 10/10/24 indomethacin 50 mg capsule 50 mg PO 3XD PRN gout pain 09/25/22 09/25/22 clopidogrel 75 mg tablet 75 mg PO QAM 09/17/24 10/10/24 metoprolol succinate 25 mg 25 mg PO BID 09/17/24 10/10/24 tablet,extended release 24 hr rosuvastatin 20 mg tablet 20 mg PO QPM 09/17/24 10/10/24 apixaban 5 mg tablet (Eliquis) 5 mg PO BID 10/10/24 10/10/24 Allergies Allergy/AdvReac Type Severity Reaction Status Date / Time No Known Drug Allergies Allergy Verified 09/17/24 09:14 [facility] Social History Smoking Status: Former smoker Do you use any of these nicotine containing products: None Second hand tobacco smoke exposure: No How often do you have a drink containing alcohol: 2-3 times a week How many standard drinks containing alcohol do you have on a typical day: 3 or 4 How often do you have six or more drinks on one occasion: Less than monthly AUDIT-C Alcohol total score: 5 Non-prescribed substance use: denies use service: No Exam Narrative: Exam Narrative: Constitutional: Appears well-developed and well-nourished. Alert. Conversant. Non toxic. Breathing easily on 3 L nasal cannula. Oxygen sat 90% which is about his baseline. HENT: Head: Atraumatic. Nose: Nose normal. Mouth/Throat: Oral mucosa is clear and moist. no trismus. Pharynx normal. Tonsils symmetric. No tonsillar enlargement, erythema, or exudate. Eyes: Conjunctivae normal. EOM normal. Pupils equal, round, and reactive to light. No scleral icterus. Neck: Normal range of motion. Neck supple. No tracheal deviation present. Cardiovascular: Normal rate, regular rhythm. No gallop. No friction rub. No murmur heard. Symmetric radial artery pulses Pulmonary/Chest: Effort normal. No stridor. No respiratory distress. Scares bilateral wheezes. No rales. No rhonchi . No tenderness. Frequent wet sounding cough. Abdominal: Soft. Bowel sounds normal. No distension. No mass. No rebound. No guarding. Musculoskeletal: RUE: Normal range of motion. No tenderness. No deformity LUE: Normal range of motion. No tenderness. No deformity RLE: Normal range of motion. No edema. No tenderness. No deformity LLE: Normal range of motion. No edema. No tenderness. No deformity Neurological: Mental status normal. Attention normal. Alert and oriented x3. GCS 15. Memory normal. Speech fluent. Cognition normal. Cranial Nerves intact II-XII except I did not formally test gag or visual acuity. EOMI. Palate elevates symmetrically and tongue protrudes in the midline. Strength: 5/5 trapezius on the right and left 5/5 deltoid on the right and left 5/5 biceps on the right and left 5/5 triceps on the right and left 5/5 professional development manager on the right and left 5/5 thumb opposition on the right and left 5/5 finger abduction on the right and left 5/5 hip flexors (L3) on the right and left 5/5 quadriceps (L4) on the right and left 5/5 tibialis anterior on the right and left 5/5 EHL (L5) on the right and left 5/5 gastrocnemius (S1) on the right and left 5/5 hamstring on the right and left Sensation intact to light touch in both upper extremities (C4-T1) Sensation intact to light touch in Both lower extremities (L4-S1). Finger to nose and coordination normal. Gait normal. Skin: Skin is warm and dry. No rash noted. No pallor. Normal capillary refill. Psychiatric: Normal mood. Normal affect. Const: Vital Signs, click to edit/add: Vital Signs - 24 hr 10/10/24 10:07 10/10/24 10:08 10/10/24 10:17 Temperature 97.9 F Pulse Rate Pulse Rate [Pulse Oximeter] 75 Respiratory Rate 24 Blood Pressure Blood Pressure [Ri ght Upper Arm] 110/78 Pulse Oximetry 82 L 90 90 Oxygen Delivery Me thod Room Air Room Air Nasal Cannula Oxygen Flow Rate 3 10/10/24 10:19 10/10/24 11:17 10/10/24 11:28 Temperature Pulse Rate 71 72 Pulse Rate [Pulse Oximeter] Respiratory Rate 22 Blood Pressure 106/53 L Blood Pressure [Ri ght Upper Arm] Pulse Oximetry 90 91 94 Oxygen Delivery Me thod Nasal Cannula Oxygen Flow Rate 3 10/10/24 11:29 10/10/24 11:30 10/10/24 11:45 Temperature Pulse Rate 73 72 72 Pulse Rate [Pulse Oximeter] Respiratory Rate Blood Pressure Blood Pressure [Ri ght Upper Arm] Pulse Oximetry 93 91 91 Oxygen Delivery Me thod Oxygen Flow Rate 10/10/24 12:00 10/10/24 12:15 07/12/25 12:30 Temperature Pulse Rate 80 72 73 Pulse Rate [Pulse Oximeter] Respiratory Rate Blood Pressure Blood Pressure [Ri ght Upper Arm] Pulse Oximetry 90 90 Oxygen Delivery Me thod Nasal Cannula Oxygen Flow Rate 3.5 10/10/24 12:45 10/10/24 13:00 10/10/24 13:17 Temperature Pulse Rate 72 73 84 Pulse Rate [Pulse Oximeter] Respiratory Rate Blood Pressure Blood Pressure [Ri ght Upper Arm] Pulse Oximetry 93 89 Oxygen Delivery Me thod Oxygen Flow Rate 10/10/24 13:23 10/10/24 13:30 10/10/24 13:45 Temperature Pulse Rate 73 73 72 Pulse Rate [Pulse Oximeter] Respiratory Rate Blood Pressure 113/53 L Blood Pressure [Ri ght Upper Arm] Pulse Oximetry 90 90 91 Oxygen Delivery Me thod Oxygen Flow Rate Course Course ED Course: Patient arrived and was room today ER bed 3. I evaluated him. He describes a history of neurologic symptoms highly suggestive for TIA. He has no ongoing neurologic symptoms at the time of presentation so did not require stroke team activation. He was also complaining of cough and shortness of breath. Lung sounds were slightly wheezy. Reevaluation(s) Reevaluation #1: Chest x-ray came back showing subtle infiltrates, possible bronchiolitis versus pneumonia. Will put him on antibiotics. And terminal proBNP is slightly elevated at 18 30. However no other signs of CHF on chest x-ray and no peripheral edema. Would hold off on diuretics for now. Recheck-phone consult with vascular surgery from [facility], Dr. Horne. He would agree to consult for this patient if transferred [facility]. At this point no need for emergent vascular intervention. Discussed with stroke neurology, Dr. Orellana. He was able to provide more information including the precise report from the patient's CT angiogram from May. Although the patient reported a 50-69% stenosis, the actual read was critical 80-90% stenosis of the right right carotid and severe 75-80% stenosis on the left. Stroke neurology requests repeat CT angio to see if anything is changed to make sure there is no clots currently in the carotid. Discussed again with vascular surgery, Dr. Horne. Discussed with hospitalist, Dr. Frazier, who accepts to [facility] CTA was delayed due to very difficult IV access. Nurses were unable to get an IV. Anesthesia was not available come to the ER. I was able to start an IV using ultrasound in the patient's right antecubital fossa. . Vital Signs Vital signs: Initial Vital Signs Pulse Oximetry 82 L 10/10/24 10:07 Oxygen Delivery Method Room Air 10/10/24 10:07 Vital Signs Pulse Oximetry 82 L 10/10/24 10:07 Oxygen Delivery Method Room Air 10/10/24 10:07 Temperature 97.9 F 10/10/24 10:08 Pulse Rate 72 10/10/24 13:45 Respiratory Rate 22 10/10/24 11:28 Blood Pressure 113/53 L 10/10/24 13:23 Pulse Oximetry 91 10/10/24 13:45 Oxygen Delivery Method Nasal Cannula 10/10/24 12:15 Oxygen Flow Rate 3.5 10/10/24 12:15 Medications Administered Medications: Discontinued Medications Generic Name Dose Route Start Last Admin Trade Name Freq PRN Reason Stop Dose Admin Ceftriaxone Sodium 1 gm/ 100 mls @ 200 mls/hr 10/10/24 12:29 10/10/24 14:03 Sodium Chloride IVPB 10/10/24 12:30 Infused ONCE ONE Infusion Azithromycin 500 mg/ Sodium 255 mls @ 255 mls/hr 10/10/24 12:29 10/10/24 15:31 Chloride IVPB 10/10/24 12:30 Infused ONCE ONE Infusion Medical Decision Making [facility] Narrative Medical decision making narrative: Very pleasant 69-year-old gentleman presenting to the ER today. There are 2 problems 1. Neuro. Patient has not history of known severe carotid stenosis and had TIAs a couple of months ago. He was scheduled for carotid endarterectomy, but that had to be delayed due to pneumonia and pulmonary problems in August. He has been doing well on his Plavix and aspirin but this week it started having recurring TIA symptoms. It sounds like he has had several brief TIAs this week call mentating in the most severe event so far, that occurred this morning. He had TIAs affecting his left arm and leg which would fit with the vascular territory of his right carotid. Head CT is negative for bleed. He does not have any ongoing stroke symptoms necessitate MRI here in the ER today. Given his known critical stenosis we did make consult with vascular surgery at [facility]. They would agree to consult of the patient comes there. However they have no plans for immediate surgery. In discussion with stroke neurology they request that we get a repeat CTA today to CV things change with the vascular anatomy. Patient is already on Eliquis and Plavix. He took both of those meds this morning. At this point does not need additional antiplatelets or anticoagulants. Potentially may need triple therapy, if deemed appropriate by vascular and neuro when he arrives at [facility]. 2. Pulmonary. Patient does have COPD and chronic lung disease requiring chronic home oxygen. He does have a acute on chronic cough and a little bit more shortness of breath ongoing this week. Chest x-ray shows bilateral patchy airspace opacities which could be related to bronchiolitis or pneumonia. Will start the patient back on antibiotics-Rocephin and azithromycin. He is otherwise not febrile or toxic appearing. No evidence for sepsis or septic shock at this point. He does have COPD but does not often use his nebulizers. Very scant wheezes. Neb given here in the ER. COVID and influenza and RSV PCR negative. And terminal proBNP slightly elevated. Otherwise no other clinical evidence for CHF. I think this is an indeterminate finding. Would hold off on diuretic for now. EKG nonischemic and troponin is undetectable. Lab Data Labs: Lab Results 10/10/24 Range/Units 11:08 WBC 11.63 H (4.50-11.00) K/uL RBC 3.79 L (4.30-5.90) m/uL Hgb 11.0 L (13.5-17.5) gm/dL Hct 36.1 L (37.0-53.0) % MCV 95 (80-100) fL MCH 29 (26-34) pg MCHC 31 L (32-36) gm/dL RDW Coeff of Sloan 14.2 (11.5-15.5) % Plt Count 467 H (140-440) K/uL Neut % (Auto) 79.9 H (42.0-72.0) % Lymph % (Auto) 7.2 L (20-44) % Ralls % (Auto) 11.3 H (0.0-11.0) % Eos % (Auto) 1.0 (0.0-7.0) % Baso % (Auto) 0.3 (0.0-3.0) % Neut # (Auto) 9.30 H (1.7-7.0) K/uL Lymph # (Auto) 0.80 L (0.90-2.90) K/uL Ralls # (Auto) 1.30 H (0.00-0.90) K/UL Eos # (Auto) 0.10 (0.00-0.50) K/uL Baso # (Auto) 0.00 (0.00-0.30) K/uL Abs Immat Gran (auto) 0.00 (0.00-0.30) K/uL Imm/Tot Granulo (auto) 0.3 % Sodium 140 (135-149) mmol/L Potassium 4.8 (3.6-5.1) mmol/L Chloride 101 (96-114) mmol/L Carbon Dioxide 32 (20-32) mmol/L Anion Gap 7 (7-15) mEq/L BUN 19 (7-30) mg/dL Creatinine 1.1 (0.5-1.5) mg/dL Estimated Creat Clear 60.45 Estimated GFR 72 ml/min Glucose 110 (60-115) mg/dL Lactate 1.5 (0.5-1.9) mmol/L Calcium 9.7 (8.4-10.6) mg/dL Troponin I < 0.01 (0.01-0.04) ng/mL NT-Pro-B Natriuret Pep 1850 H (See Note) pg/mL SARS-CoV-2 (PCR) Negative SARS-CoV-2 (Negative) Influenza Type A (PCR) Negative PCR FLU A (Negative) Influenza Type B (PCR) Negative PCR FLU B (Negative) RSV (PCR) Negative PCR RSV (Negative) Imaging Data Chest x-ray: Attestation: I have reviewed the pertinent imaging results. Radiologist's impression: Hyperinflation. Multifocal patchy airspace opacities in the bilateral mid and lower zone, more pronounced than previous x-ray with peribronchial thickening, concerning for infectious-inflammatory infiltrates with bronchiolitis. Chronic organizing pneumonia/chronic interstitial lung disease is also consideration in the appropriate clinical setting. Cardiac size is within normal limits. No overt pulmonary edema. No large effusion or pneumothorax. CT scan - head: Attestation: I have reviewed the pertinent imaging results. Radiologist's impression: Impression: 1. No acute intracranial process. 2. Mild chronic ischemic microvascular disease. ECG Data Attestation: I personally reviewed and interpreted this ECG as follows: Interpretation: Normal sinus rhythm. Rate 68 TX interval 172 Normal QRS axis. Incomplete right bundle-branch block. No ST segment elevation or depression. QTC 410 Discharge Plan Discharge Clinical Impression: Brain TIA, Carotid artery stenosis, COPD (chronic obstructive pulmonary disease) Patient Disposition: [facility] Prescriptions: No Action amlodipine 10 mg tablet 10 mg PO DAILY potassium chloride 10 mEq tablet extended release 10 meq PO DAILY lisinopril 20 mg tablet 20 mg PO DAILY furosemide 40 mg tablet 40 mg PO DAILY indomethacin 50 mg capsule 50 mg PO 3XD PRN (Reason: gout pain) clopidogrel 75 mg tablet 75 mg PO QAM metoprolol succinate 25 mg tablet extended release 24 hr 25 mg PO BID rosuvastatin 20 mg tablet 20 mg PO QPM Eliquis 5 mg tablet 5 mg PO BID Stand Alone Forms: apprupt Info Instructions Procedures Ultrasound Vascular Access exam #1: Indications: poor access and other (Need for adequate IV access for CT angiogram) Access type: peripheral (site) (Right antecubital 20 gauge IV) Technique: dynamic Placement: successful Verification: intra-luminal & compressible on ultrasound Description/Findings: Using the nurses high-frequency linear array probe I was able to identify a suitable compressible venous vascular structure in the patient's right antecubital fossa. After sterile prep and using sterile probe cover I was able to place a 20 gauge 1 in single-lumen peripheral IV catheter into the vein. Placement was confirmed by aspiration of dark red venous blood. I flushed with 20 mL of sterile saline there was no sign of extravasation. Patient tolerated procedure well. Sterile dressing was placed and saline lock was secured in place with skin tape.
--- NOTE | 2024-10-10 10:44 | CRLHL7_ITS ---
For Patients: As a result of the Century Cures Act, medical imaging exams and procedure reports are released immediately into your electronic medical record. You may view this report before your referring provider. If you have questions, please contact your health care provider. INDICATION: Cough and shortness of breath TECHNIQUE: Chest 2 views. COMPARISON: X-ray chest February 19, 2019 FINDINGS/ IMPRESSION: Hyperinflation. Multifocal patchy airspace opacities in the bilateral mid and lower zone, more pronounced than previous x-ray with peribronchial thickening, concerning for infectious-inflammatory infiltrates with bronchiolitis. Chronic organizing pneumonia/chronic interstitial lung disease is also consideration in the appropriate clinical setting. Cardiac size is within normal limits. No overt pulmonary edema. No large effusion or pneumothorax. Dictated by Presley Torrez MD @ 10/10/2024 11:40:35 AM (Electronically Signed)
[2024-10-10 11:18] LABS: Hematocrit 36.1 % (37.0-53.0); Hemoglobin* 11.0 gm/dL (13.5-17.5); Immature Granulocytes Abs Auto 0.00 K/uL (0.00-0.30); Immature Granulocytes Pct Auto 0.3 %; Lymphocytes Absolute Auto 0.80 K/uL (0.90-2.90); Mean Corpuscular HGB Conc 31 gm/dL (32-36); Mean Corpuscular Hemoglobin 29 pg (26-34); Mean Corpuscular Volume 95 fL (80-100); RDW Coefficient of Variation % 14.2 % (11.5-15.5); Red Blood Count 3.79 m/uL (4.30-5.90); Slide Review Reflex No; White Blood Count* 11.63 K/uL (4.50-11.00)
[2024-10-10 11:19] LABS: Lactate* 1.5 mmol/L (0.5-1.9)
[2024-10-10 11:35] LABS: Chloride* 101 mmol/L (96-114)
[2024-10-10 11:36] LABS: Potassium* 4.8 mmol/L (3.6-5.1); Sodium* 140 mmol/L (135-149)
[2024-10-10 11:38] LABS: Blood Urea Nitrogen* 19 mg/dL (7-30); Creatinine* 1.1 mg/dL (0.5-1.5); Est. Creatinine Clearance* 60.45; Estimated Glomerular Filt Rate 72 ml/min
[2024-10-10 11:39] LABS: Anion Gap 7 mEq/L (7-15); Calcium* 9.7 mg/dL (8.4-10.6); Carbon Dioxide* 32 mmol/L (20-32); Glucose* 110 mg/dL (60-115)
[2024-10-10 11:54] LABS: NT Pro B Type NatriureticPept* 1850 pg/mL (See Note)
[2024-10-10 12:27] LABS: PCR FLU A Negative PCR FLU A (Negative); PCR FLU B Negative PCR FLU B (Negative); PCR RSV Negative PCR RSV (Negative); SARS PCR* Negative SARS-CoV-2 (Negative)
--- NOTE | 2024-10-10 12:55 | CRLHL7_ITS ---
For Patients: As a result of the Century Cures Act, medical imaging exams and procedure reports are released immediately into your electronic medical record. You may view this report before your referring provider. If you have questions, please contact your health care provider. Indication : Transient ischemic attack. Technique : CT of the brain without intravenous contrast. Comparison: None relevant available at the time of interpretation. Findings: No acute blurring of the escoto-white differentiation. There is no intracranial hemorrhage. The ventricles are proportionate to the cerebral sulci. The 4th ventricle is midline. Basal cisterns appear patent. No abnormal extra-axial fluid collection identified. Mild parenchymal volume loss. There is mild patchy periventricular hypodensity, favored to represent chronic ischemic microvascular disease. There is no intracranial mass, mass effect or midline shift identified. No depressed calvarial fracture. Impression: 1. No acute intracranial process. 2. Mild chronic ischemic microvascular disease. Please note that all CT scans at this facility use dose modulation, iterative reconstruction, and/or weight-based dosing when appropriate to reduce radiation dose to as low as reasonably achievable. Dictated by Giacomo Sarkar MD @ 10/10/2024 1:32:44 PM (Electronically Signed)
--- NOTE | 2024-10-10 13:15 | CRLHL7_ITS ---
For Patients: As a result of the Century Cures Act, medical imaging exams and procedure reports are released immediately into your electronic medical record. You may view this report before your referring provider. If you have questions, please contact your health care provider. DATE: 10/10/2024 CLINICAL HISTORY: Patient with focal neurological deficits. TECHNIQUE: Standard helical CT image acquisition through the intracranial circulation following intravenous administration of contrast material with bolus tracking. 2D and 3D MIP images for post-processing were performed and interpreted on an independent workstation and 3D images were permanently archived. COMPARISON: CT same day. FINDINGS: There is no cerebral aneurysm or large vessel occlusion. The right internal carotid artery is normal. The right middle cerebral artery and its branches are normal. The right anterior cerebral artery and its branches are normal. The left internal carotid artery is normal. The left middle cerebral artery and its branches are normal. The left anterior cerebral artery and its branches are normal. The anterior communicating artery is well visualized and appears normal. The right vertebral artery and PICA are normal. The left vertebral artery and PICA are normal. The vertebral arteries are codominant. The basilar artery is patent and appears normal. The right posterior cerebral artery is normal. The left posterior cerebral artery is normal. The visualized venous structures are patent. The lung apices demonstrate bullous emphysema, bronchiectasis and borderline right paratracheal lymph nodes. IMPRESSION: 1. Patent proximal intracranial vasculature without intracranial aneurysms. 2. The lung apices demonstrate bullous emphysema, bronchiectasis and borderline right paratracheal lymph nodes. Please note that all CT scans at this facility use dose modulation, iterative reconstruction, and/or weight-based dosing when appropriate to reduce radiation dose to as low as reasonably achievable. Dictated by Taiwo Noel MD @ 10/10/2024 6:36:12 PM (Electronically Signed)
--- NOTE | 2024-10-10 13:18 | CRLHL7_ITS ---
For Patients: As a result of the Century Cures Act, medical imaging exams and procedure reports are released immediately into your electronic medical record. You may view this report before your referring provider. If you have questions, please contact your health care provider. DATE: 10/10/2024 CLINICAL HISTORY: Patient with focal neurological deficits, carotid stenosis. TECHNIQUE: Standard helical CT image acquisition of the neck up to the skull base after bolus intravenous contrast enhancement. 2D and 3D MIP images for post-processing were performed and interpreted on an independent workstation and 3D images were permanently archived. COMPARISON: CT same day FINDINGS: The origins of the great vessels from the aortic arch are patent. The origin of the right vertebral artery is patent. The origin of the left vertebral artery is patent. The common carotid arteries are patent. There is a critical (99%) stenosis at the origin of the right internal carotid artery by NASCET criteria. This is caused by calcified plaque with a hairline residual lumen. There is a severe (76%) stenosis at the origin of the left internal carotid artery by NASCET criteria. This is caused by calcified plaque with a 1.3mm residual lumen. The rest of the cervical segments of the internal carotid arteries are patent up to the skull base. The vertebral arteries are codominant. The cervical segments of the vertebral arteries are patent up to the skull base. The visualized lung apices are unremarkable. The thyroid gland is unremarkable. The soft tissues of the neck are unremarkable. There are degenerative changes in the cervical spine. IMPRESSION: 1. Critical (99%) stenosis at the origin of the right internal carotid artery by NASCET criteria. This is caused by calcified plaque with a hairline residual lumen. 2. Severe (76%) stenosis at the origin of the left internal carotid artery by NASCET criteria. This is caused by calcified plaque with a 1.3mm residual lumen. Please note that all CT scans at this facility use dose modulation, iterative reconstruction, and/or weight-based dosing when appropriate to reduce radiation dose to as low as reasonably achievable. Dictated by Taiwo Noel MD @ 10/10/2024 6:33:39 PM (Electronically Signed)
[2024-10-10] MEDS: cefTRIAXone 1 GM in 0.9 % SODIUM CHLORIDE Mini-bag 100 ML IVPB (13:31)
[2024-10-10] MEDS: AZITHROMYCIN 500 MG in 0.9 % SODIUM CHLORIDE 250 ml 250 ML 255 MG IVPB (14:13)
[2024-10-10] MEDS: IPRAT-ALBUT 0.5-2.5 MG/3 ML NEB 1 NEB IH (15:58)
== END 2024-10-10 17:08 | disposition short-term general hospital (02) ==
PROVIDERS: Emergency Provider Emergency Medicine; PCP Family Medicine
DX: G45.9 Transient cerebral ischemic attack, unspecified (principal); J44.9 Chronic obstructive pulmonary disease, unspecified; I10 Essential (primary) hypertension; E78.5 Hyperlipidemia, unspecified; Z99.81 Dependence on supplemental oxygen; Z79.899 Other long term (current) drug therapy; Z87.891 Personal history of nicotine dependence
CPT/HCPCS: 36415; 70450; 70496; 70498; 71046; 80048; 83605; 83880; 84484; 85025; 87040; 87631; 93005; 94761; 96365; 96368; 99284; 99285; J0456; J0696; J7050; Q9967

== ENCOUNTER 2024-10-10 17:01 | Outpatient (CLI) | payer MEDICARE, SELFPAY | END 2024-10-10 17:02 | disposition home or self-care (01) | PROVIDERS: PCP Family Medicine; Visit Provider Emergency Medicine | DX: G45.9 Transient cerebral ischemic attack, unspecified (principal); I65.29 Occlusion and stenosis of unspecified carotid artery; J44.9 Chronic obstructive pulmonary disease, unspecified; J18.9 Pneumonia, unspecified organism | CPT/HCPCS: A0425; A0427 ==

== ENCOUNTER 2024-12-25 09:53 | Outpatient (CLI) | payer MEDICARE, SELFPAY ==
--- NOTE | 2024-12-25 10:00 | CRLHL7_ITS ---
For Patients: As a result of the Century Cures Act, medical imaging exams and procedure reports are released immediately into your electronic medical record. You may view this report before your referring provider. If you have questions, please contact your health care provider. INDICATION: Follow-up of bilateral carotid stents. TECHNIQUE: CTA head using intravenous contrast with bolus tracking, 3D angiographic rendering using maximum intensity projection (MIP) and images permanently archived. CTA neck using intravenous contrast with bolus tracking, 3D angiographic rendering using maximum intensity projection (MIP) and images permanently archived. FINDINGS: CTA head: There is scattered intracranial atherosclerotic disease. There is normal opacification of the intracranial vasculature. There is no large vessel occlusion or significant intracranial stenosis. No aneurysm is identified. CTA neck: Bilateral carotid stents are widely patent. There is no significant vertebral artery stenosis or dissection. Degenerative changes are noted in the cervical spine. Scarring and emphysema are present in the visualized lungs. IMPRESSION: Widely patent bilateral carotid stents. Please note that all CT scans at this facility use dose modulation, iterative reconstruction, and/or weight-based dosing when appropriate to reduce radiation dose to as low as reasonably achievable. Dictated by Cody Mc MD @ 12/25/2024 11:49:34 AM (Electronically Signed)
[2024-12-25 10:34] LABS: Creatinine* 1.1 mg/dL (0.5-1.5); Estimated Glomerular Filt Rate 72 ml/min
== END 2024-12-25 09:54 | disposition home or self-care (01) ==
LOC: CT 09:54
PROVIDERS: PCP Family Medicine; Visit Provider Radiology Neuroradiology
DX: I65.23 Occlusion and stenosis of bilateral carotid arteries (principal); Z98.890 Other specified postprocedural states
CPT/HCPCS: 36415; 70496; 70498; 82565; Q9967